=== PATIENT | female | born 1970 | race Two or more races ===

== ENCOUNTER 2024-05-01 11:10 | Emergency (ER) | payer MEDICAID, SELFPAY ==
[2024-05-01 11:21] VITALS: BP 185/116; PULSE 113; RESP 18; TEMP 37.2; O2SAT 98; BMI 27.8
--- NOTE | 2024-05-01 11:28 | EDNOTE_ITS ---
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 presents department for complaint of rash to her face patient reports no fever nausea vomiting Limitations: no limitations Related Data Previous Rx's ?Medication ?Instructions ?Recorded hydrocodone 5 mg-acetaminophen 325 1 tab PO BID PRN pain #10 tabs 12/03/23 mg tablet ibuprofen 600 mg tablet 600 mg PO Q6H #30 tabs 12/03/23 diphenhydramine HCl 25 mg capsule 25 mg PO Q8H PRN allergic symptoms 05/01/24 (Benadryl) #30 caps doxycycline hyclate 100 mg tablet 100 mg PO BID #14 tabs 05/01/24 prednisone 10 mg tablet 30 mg (3 x 10 mg) PO BID 3 days 05/01/24 #18 tabs Allergies Allergy/AdvReac Type Severity Reaction Status Date / Time walnut Allergy Verified 05/01/24 11:12 Review of Systems Review of Systems Systems Reviewed: All systems reviewed, normal except as documented Constitutional Constitutional: Reports system reviewed and no additional complaints, except as documented, Denies fever(s) and Denies headache(s) Eyes Eyes: Reports system reviewed and no additional complaints, except as documented and Denies blurry vision ENT Ears, Nose, Mouth, and Throat: Reports system reviewed and no additional complaints, except as documented, Denies headache(s), Denies nasal congestion and Denies nasal discharge Cardiovascular Cardiovascular: Reports system reviewed and no additional complaints, except as documented, Denies chest pain and Denies dyspnea Respiratory Respiratory: Reports system reviewed and no additional complaints, except as documented, Denies chest congestion, Denies cough and Denies dyspnea Gastrointestinal Gastrointestinal: Reports system reviewed and no additional complaints, except as documented and Denies abdominal pain Integumentary/Breasts Skin/Breast: Reports system reviewed and no additional complaints, except as documented, Reports pruritus and Reports rash (Skin rash) Neurologic Neurologic: Reports system reviewed and no additional complaints, except as documented, Reports as per HPI and Denies headache(s) Past Medical History Past Medical History NEUROLOGIC: Negative Neurological Disorders, Cerebrovascular Accident, Transient Ischemic Attacks (TIA), Dementia, Parkinson's Disease, Brain Tumor, Meningitis, Seizures, Epilepsy, Multiple Sclerosis, Cerebral Palsy, Amyotrophic Lateral Sclerosis (ALS/Rita Gehrig's), Guillain-[place] Syndrome, Spina Bifida, Paralysis, Peripheral Neuropathy, Okeefe's Palsy, Subdural Hematoma, Migraine, Head Trauma, Spinal Cord Injury or Traumatic Brain Injury CARDIAC: Negative Cardiac Disorders, Myocardial Infarction, Cardiac Arrhythmia, Atrial Fibrillation, Angina, Heart Murmur, Coronary Artery Disease, Atherosclerotic Heart Disease, Peripheral Vascular Disease, Hypercholesterolemia, Aneurysm, Congestive Heart Failure, Congenital Heart Disease, Valvular Heart Disease, Rheumatic Fever, Cardiomyopathy, Edema, Pericarditis, Cellulitis, Deep Vein Thrombosis, Hypertension, Hypotension or Varicose Veins RESPIRATORY: Negative Chronic Obstructive Pulmonary Disease (COPD), Asthma, B ronchitis, Emphysema, Pneumonia, Pulmonary Fibrosis, Cystic Fibrosis, Tuberculosis, Pulmonary Embolism, Pulmonary Edema or Sleep Apnea GASTROINTESTINAL: Negative Gastrointestinal Disorders, Hepatitis, Cirrhosis, Pancreatitis, Celiac Disease, Gall Bladder Disease, Gastrointestinal Bleed, Esophageal Varices, Maxwell's Esophagus, Colitis, Ulcerative Colitis, Diverticulitis, Diverticulosis, Ulcer, Colorectal Cancer, Irritable Bowel, Crohn's Disease, Obstructive Bowel, Hiatal Hernia, Hemorrhoids, Gastroesophageal Reflux Disease or Obesity GENITOURINARY: Negative Genitourinary Disorders, Renal Disease, Kidney Stones, Polycystic Kidney Disease, Neurogenic Bladder, Inguinal Hernia, Dialysis or Prostate Cancer REPRODUCTIVE: Positive Breast Cancer; Negative Endometriosis, Genital Herpes, Gonorrhea, Pelvic Inflammatory Disease, Previous Pregnancies, Syphilis, Testicular Cancer or Uterine Prolapse MUSCULOSKELETAL: Negative Musculoskeletal Disorders, Muscular Dystrophy, Myasthenia Gravis, Marfan's Syndrome, Bone Cancer, Arthritis, Rheumatoid Arthritis, Osteoporosis, Degenerative Disk Disease, Gout, Scoliosis, Carpal Tunnel Syndrome, Fibromyalgia, Fractures, Degenerative Joint Disease, Osteomye litis or Poliovirus ENT: Positive Blind; Negative Cataracts, Glaucoma, Retinal Detachment, Macular Degeneration, Ear Infection, Deafness, Head Trauma or Eye Prosthesis ENDOCRINE: Negative Endocrine Disorders, Diabetes Mellitus Type 1, Diabetes Mellitus Type 2, Hypoglycemia, Moisés's Syndrome, Tony's Disease, Hyperthyroidism, Hypothyroidism, Parathyroid Disease, Pituitary Disease, Systemic Lupus Erythematosus, Syndrome of Inappropriate Antidiuretic Hormone (SIADH), Adrenal Disease or Graves' Disease HEMATOLOGIC: Negative Sickle Cell Disease PSYCHO/SOCIAL: Negative Psychiatric Problems, Schizophrenia, Recreational Drug Use, Bipolar Disorder, Depression, Anxiety, Behavior Problems, Self-Mutilation, Attention Deficit Disorder, Attention Deficit Hyperactivity Disorder, Depression, Post Traumatic Stress Disorder or Eating Disorder OTHER HISTORY: Positive Chicken Pox, Cancer and Breast Cancer; Negative Hospitalization, Autoimmune Disease, Down Syndrome, Autism, Developmental Delay, Shingles, Falls, Blood Transfusions, Blood Transfusion Reaction, Anesthesia Reactions, Organ Transplant, Chemotherapy, Radiation Therapy, Hyperbaric Therapy, MRSA, VRSA, Vancomycin-Resistant Enterococci, Human Immunodeficiency Virus (HIV), Measles, Mumps, Rubella ([place] Measles), Pertussis, Clostridium Difficile, Cervical Cancer, Colorectal Cancer, Lung Cancer, Ovarian Cancer, Prostate Cancer or Testicular Cancer Family History FAMILY HISTORY: Positive Family Psychiatric Problems, Family Gastrointestinal Problems, Family Cancer and Family Surgery; Negative Family Respiratory Disorders, Family Cardiac Disorders or Family Anesthesia Reaction Surgical History SURGICAL: Positive Section; Negative Cardiac Surgery, Open Heart Surgery, Coronary Artery Bypass Graft, Valve Replacement, Vascular Surgery, Coronary Stent, Cardiac Catheterization, Pacemaker, Angiogram, Auto Implanted Cardiovert Defib, Carotid Endarterectomy, Endocrine Surgery, Thyroidectomy, Ear Surgery, Tympanostomy Tube, Eye Surgery, Nose Surgery, Oral Surgery, Tonsillectomy, Adenoidectomy, Cochlear Implant, Corneal Transplant, Throat Surgery, Abdominal Surgery, Tracheostomy, Gastric Bypass Surgery, Gastrostomy, Bowel Surgery, Joint Replacement, Amputation, Open Reduction Internal Fixation, Arthroscopy, Neurologic Surgery, Brain Shunt, Mastectomy, Lumpectomy, Hysterectomy or Organ Transplant Social History SMOKING STATUS: Never smoker SUBSTANCE USE: methamphetamine ED Exam General Limitations: Present no limitations General appearance: Present alert and in no apparent distress Head Head exam: Present atraumatic Eye Eye exam: Present normal appearance, PERRL and EOMI ENT ENT exam: Present normal exam, normal oropharynx and mucous membranes moist Neck Neck exam: Present normal inspection, full ROM and trachea midline Chest Chest inspection: Present normal inspection and symmetric chest wall rise Respiratory Respiratory exam: Present normal lung sounds bilaterally Cardiovascular Cardiovascular exam: Present regular rate, normal rhythm and normal heart sounds Abdominal Exam Abdominal exam: Present soft and normal bowel sounds Extremities Exam Extremities exam: Present normal inspection and full ROM Back Exam Back exam: Present normal inspection and full ROM Neurological Exam Neurological exam: Present alert, oriented X3, CN II-XII intact, normal gait and reflexes normal; Absent motor sensory deficit Psychiatric Psychiatric exam: Present normal affect and normal mood Skin Skin exam: Present warm, dry and rash Course Quality Measures none Vital Signs Vital signs: Vital Signs Temperature 98.9 F 12/12/24 11:21 Pulse Rate 113 H 05/01/24 11:21 Respiratory Rate 18 05/01/24 11:21 Blood Pressure 185/116 H 05/01/24 11:21 Pulse Oximetry (%) 98 05/01/24 11:21 Oxygen Delivery Method Room Air 05/01/24 11:21 O2 saturation 98% room air within normal notes Allergic Reaction MDM Narrative MDM Narrative:: 53-year-old female currently undergoing treatment for cancer and 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 presents department for complaint of rash to her face patient ports no fever nausea vomiting On exam patient has evidence of anaphylaxis Patient does have skin outbreak which is itchy Patient which with course of antibiotics, steroids and Benadryl Patient discharged home in no distress to follow-up with primary care doctor in the next 24 to 48 hours and for any worsening symptoms to return to the ER immediately Patient data External records reviewed:: [facility] previous records Clinical information provided by:: patient Social determinants that could affect healthcare access:: substance use Patient has the following chronic illnesses:: See history How is presenting disease/condition affected by chronic disease/condition?: uneffected by Evaluation data The following diagnostics were reviewed and interpreted by me:: other (specify) (N/A) Lab and/or radiology exams considered but not ordered:: N/A Interpretation Summary: N/A Medications / Prescriptions Medications or Prescriptions considered but not ordered:: Given Rx Medication administrations:: Given Rx Consultations Consultation(s) initiated? (list below): No Diagnosis Differential Diagnosis allergic reaction: anaphylaxis, allergic reaction and urticaria Most likely diagnosis given after review of the tests above:: Rash Admission Indicated Admission indicated?: not indicated Admission Request Was there a request for admission?: No Disposition Plan Disposition Plan: Discharge Discharge Attestation Discharge Attestation: The patient and all family members were given an opportunity to ask questions and understood the discharge instructions. Discharge instructions specifically effects, indications for sooner follow up or return to the emergency department, and the expected course of current diagnosis. Patient condition: Stable Discharge Plan Plan Patient Disposition: HOME (Self Care) Disposition Comment: Stable Prescriptions/Referrals Prescriptions/Med Rec: New prednisone 10 mg tablet 30 mg PO BID 3 Days Qty: 18 0RF diphenhydramine HCl [Benadryl] 25 mg capsule 25 mg PO Q8H PRN (Reason: allergic symptoms) Qty: 30 0RF doxycycline hyclate 100 mg tablet 100 mg PO BID Qty: 14 0RF No Action hydrocodone-acetaminophen 5-325 mg tablet 1 tab PO BID MDD 10 PRN (Reason: pain) Qty: 10 0RF ibuprofen 600 mg tablet 600 mg PO Q6H Qty: 30 0RF Problem List Clinical Impression: Rash Patient/Caregiver Discharge Instructions Additional Instructions: Please follow up with your primary care doctor in the next 24-48hrs for any worsening symptoms return here immediately Print Language: Tuvaluan Stand Alone Forms: Bree Award Info., Patient Portal Info Letter PA/STRUCTURAL SHOP HELPER Supervising Physician PA/STRUCTURAL SHOP HELPER Supervising Physician: dr chen
== END 2024-05-01 11:38 | disposition home or self-care (01) ==
PROVIDERS: Emergency Provider Emergency Medicine
DX: R21 Rash and other nonspecific skin eruption (principal); F15.10 Other stimulant abuse, uncomplicated
CPT/HCPCS: 99281

== ENCOUNTER → 2024-05-01 | Outpatient (CLI) | payer MEDICAID, SELFPAY ==
--- NOTE | 2024-05-01 14:00 | ECHO_ITS ---
Transthoracic Echo Report Ht (in): 64 Wt (lb): 162 Exam Location: Echo Lab Status: Preadmit Lead Sustainability Specialist: Fifi Duarte Indications: Procedure Performed: BP: / HR: Rhythm: Tachycardia Technical Quality: Fair MEASUREMENTS (Male / Female) Normal Values 2D ECHO LV Diastolic Diameter PLAX 4.0 cm 4.2 - 5.9 / 3.9 - 5.3 cm LV Systolic Diameter PLAX 2.5 cm IVS Diastolic Thickness 1.0 cm 0.6 - 1.0 / 0.6 - 0.9 cm LVPW Diastolic Thickness 1.0 cm 0.6 - 1.0 / 0.6 - 0.9 cm LV Relative Wall Thickness 0.5 LA Volume Index 15.6 cm?/m? 16 - 28 cm?/m? Ascending Aorta Diameter 3.0 cm M-MODE Aortic Root Diameter MM 2.6 cm LA Systolic Diameter MM 3.2 cm LA Ao Ratio MM 1.2 AV Cusp Separation MM 2.0 cm DOPPLER AV Peak Velocity 122.0 cm/s AV Peak Gradient 6.0 mmHg AV Mean Gradient 3.0 mmHg AV Velocity Time Integral 19.0 cm LVOT Peak Velocity 115.0 cm/s LVOT Peak Gradient 5.3 mmHg LVOT Velocity Time Integral 20.3 cm MV Peak Velocity 108.0 cm/s MV Peak Gradient 4.7 mmHg MV Mean Velocity 73.6 cm/s MV Mean Gradient 2.0 mmHg MV Area PHT 6.7 cm? Mitral E Point Velocity 71.0 cm/s Mitral A Point Velocity 111.0 cm/s Mitral E to A Ratio 0.6 LV E' Lateral Velocity 7.1 cm/s Mitral E to LV E' Lateral Ratio 10.0 LV E' Septal Velocity 10.0 cm/s Mitral E to LV E' Septal Ratio 7.1 FINDINGS Left Ventricle Normal left ventricular size, wall thickness, systolic function with no obvious regional wall motion abnormalities. The ejection fraction is visually estimated at 65-70%. Right Ventricle The right ventricle is normal in size and systolic function. Left Atrium The left atrium is normal by two-dimensional, color flow and Doppler imaging with no structural abnormalities, no thrombus formation present. Right Atrium The right atrium is normal by two-dimensional imaging, color flow and Doppler imaging with no struct ural abnormalities, no thrombus formation present. Atrial Septum The interatrial septum appears normal with no evidence of a shunt. Aorta The aorta is normal by two-dimensional, color flow and Doppler interrogation. Mitral Valve The mitral valve is normal by two-dimensional, color flow and Doppler interrogation. There is trace mitral valve regurgitation. Aortic Valve The aortic valve is trileaflet and normal by two-dimensional, color flow and Doppler interrogation. There is no significant aortic valve regurgitation. Tricuspid Valve The tricuspid valve is normal by two-dimensional, color flow and Doppler interrogation. There is tra ce tricuspid valve regurgitation. Pulmonic Valve The pulmonic valve is normal by two-dimensional, color flow and Doppler interrogation. There is no significant pulmonic valve regurgitation. Vessels The pulmonary artery appears normal. The inferior vena cava pulmonary and hepatic veins appear mariam l. Pericardium The pericardium is normal by two-dimensional imaging. There is no significant pericardial effusion. CONCLUSIONS Indication: Malignant neoplasm of female breast. Normal LV size and function. Estimated EF 65-70%. Cannot determine diastolic dysfunction. Normal RV size and function. Trace MR, TR. Pablo Fox (Electronically Signed) Final Date: 01 May 2024 18:11
== END | disposition home or self-care (01) ==
LOC: SDIM 13:57
PROVIDERS: Referring Provider Internal Medicine Hematology & Oncology; Visit Provider Internal Medicine Hematology & Oncology
DX: I08.1 Rheumatic disorders of both mitral and tricuspid valves (principal); C50.912 Malignant neoplasm of unspecified site of left female breast
CPT/HCPCS: 93306

== ENCOUNTER 2024-05-15 07:49 | Outpatient (RCR) | payer MEDICAID, SELFPAY ==
[2024-04-21 16:33] LABS: Basophils % (Auto) 0 % (0-2.5); Eosinophils % (Auto) 0 % (0-10); Hematocrit 43.5 % (36.0-46.0); Hemoglobin 15.2 g/dL (12.0-16.0); Immature Granulocytes % (Auto) 0 % (0-0); Immature Granulocytes Auto 0.06 Thou/mm3 (0.00-0.00); Lymphocytes # (Auto) 1.1 Thou/mm3 (1.0-4.8); Lymphocytes % (Auto) 7 % (10-50); Mean Corpuscular HGB Conc 34.9 g/dl (31.0-37.0); Mean Corpuscular Volume 92 fL (80-100); Monocytes # (Auto) 0.4 Thou/mm3 (0.0-0.8); Monocytes % (Auto) 3 % (0-12); Neutrophils # (Auto) 14.5 Thou/mm3 (1.8-7.7); Neutrophils % (Auto) 90 % (37-80); Nucleated Red Blood Cell % 0 /100 WBC (0); Platelet Count 280 Thou/mm3 (140-440); RDW Standard Deviation 45.7 fL (36.4-46.3); Red Blood Count 4.75 Miln/mm3 (4.00-5.20); White Blood Count 16.1 Thou/mm3 (3.6-11.0)
[2024-04-21 16:59] LABS: Alanine Aminotransferase 37 U/L (10-49); Albumin, Serum 4.8 gm/dL (3.5-5.0); Albumin/Globulin Ratio 1.7 (1.2-2.2); Alkaline Phosphatase 159 U/L (46-116); Anion Gap 11 (7-16); Aspartate Amino Transferase 26 U/L (0-34); BUN/Creatinine Ratio 21 Ratio (12-20); Bilirubin,Total 0.7 mg/dL (0.3-1.2); Blood Urea Nitrogen 15 mg/dL (9-23); Calcium 9.6 mg/dL (8.3-10.6); Calcium (Corrected) 9.6 mg/dL (8.5-10.1); Carbon Dioxide 23.7 mMol/L (20.0-31.0); Chloride 100 mMol/L (98-107); Creatinine (Component) 0.7 mg/dL (0.6-1.3); Globulin 2.9 gm/dL (2.3-3.5); Glucose 139 mg/dL (74-106); Osmolality,Calculated 272 (275-295); Potassium 3.7 mMol/L (3.4-5.1); Sodium 135 mMol/L (136-145); Total Protein 7.7 gm/dL (5.7-8.2); eGFR > 60 See Note
--- NOTE | 2024-05-04 20:30 | CTCFLWUP_ITS ---
Patient: TRICIA DAVE : 1970 Page 2 of 2 FOLLOW UP NOTE DATE OF SERVICE: 04/22/2024 NAME: TRICIA DAVE ACCOUNT: [id number] : 1970 AGE: 53 REASON FOR VISIT: Follow up on breast cancer INTERVAL HISTORY: Tricia Dave is a 53-year-old ENG speaking female with history of right eye blindness secon sarina to contact lens malfunction has the following oncology history. Ms. Dave never had screening m ammograms in the past. November 2022: The patient started noticing retraction of the left nipple. Few weeks later she felt a angelina mp in the left breast. 02/12/2023: Left breast ultrasound 03/28/2023: Bilateral diagnostic digital mammogram? 03/29/2023: Ms. Dave had left breast 10:00 nodule, 11:00 nodule as well as left axillary lymph node u ltrasound-guided biopsy. 05/15/2023: Echocardiogram showed an ejection fraction of 60 to 65%. 05/25/2023: PET/CT scan 05/31/2023: Bilateral breast MRI with and without contrast 07/17/2023: CT scan of the chest with IV contrast 07/27/2023: CT-guided biopsy of the left lobe liver lesion? 08/15/2023: Ms. Dave is started on pertuzumab, trastuzumab as well as docetaxel chemotherapy. 01/29/2024: PET/CT scan ONCOLOGY HISTORY: DIAGNOSIS: Stage IV moderately differentiated, left breast ER positive, AL negative, HER2/pennie 3+ IHC positive in vasive ductal carcinoma, s/p ultrasound-guided biopsy (03/29/2023) Status post biopsy-proven liver metastatic disease (07/27/2023) Currently on pertuzumab, trastuzumab and docetaxel started on 08/15/2023. PET/CT scan (01/29/2024) shows significant improvement History of methamphetamine usage Right eye blindness. 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 dexamethasone - 4 mg 1 tab Twice a Day Medications Last Reconciled by Desiree Prasad MA on 04/22/2024 ALLERGIES: No Known Drug Allergies REVIEW OF SYSTEMS: A complete 14-point review of systems was performed and is negative except as noted in interval histo ry. PHYSICAL EXAMINATION: VITAL SIGNS: Temperature?99.1, B/P?155/110, Oxygen?Saturation?96% Weight?160?lbs (Change?since? 4:?-3.4?lbs) PAIN: 0 - No pain ECOG Performance Status: 2 - Symptomatic; ambulatory; capable of self-care; >50% of waking hrs. not i n bed EYE: Conjunctivae is white MOUTH: Oral cavity moist . CHEST: Clear to auscultation. No wheezes or rales audible. CARDIAC: Rhythm regular, no murmurs or gallops present. ABDOMEN: Soft. No hepatomegaly. No splenomegaly. EXTREMITIES: No pedal edema or cyanosis. LABORATORY DATA: I have personally reviewed and interpreted each of the patient?s relevant lab tests, abnormal finding s are below: Date 04/21/24 ??WHITE?BLOOD?COUNT?(Thou/mm3) 16.1?H ??RED?BLOOD?COUNT?(Miln/mm3) 4.75 ??HEMOGLOBIN?(gm/dl) 15.2 ??HEMATOCRIT?(%) 43.5 ??PLATELET?COUNT?(Thou/mm3) 280 ??NEUTROPHILS?%,?AUTO?(%) 90?H ??LYMPH?%,?AUTO?(%) 7?L ??NEUTROPHILS,?AUTO?(Thou/mm3) 14.5?H IMPRESSION/PLAN: Stage IV left breast moderately differentiated ER positive AL negative HER2 3+ IHC positive invasive ductal carcinoma s/p ultrasound-guided biopsy on 03/29/2023. Left breast biopsy sample as well as left axillary biopsy sample showed invasive ductal carcinoma. Liver lesion biopsy for metastatic disease patient received chemotherapy patient is on trastuzumab pe rtuzumab and docetaxel 01/29/[address] scan showed significant improvement Patient can continue chemotherapy for now Will repeat imaging CBC CMP echocardiogram and PET CT scan RETURN TO CLINIC: 4 weeks BILLING AND COMPLIANCE: I reviewed external records from providers outside my specialty as summarized above. I spent a total of 50 minutes on this patient?s care on the day of their visit excluding time spent related to any bi lled procedures. This time includes time spent with the patient as well as time spent documenting in the medical record, reviewing patients records and tests, obtaining history, placing orders, communi cating with other healthcare professionals, counseling the patient, family or caregiver, and/or care coordination for the diagnoses above. Electronically Signed by: Kavon Leavitt MD T: 8:27 PM CC: Rosi,? PCP: Jelly Anderson Referring: Jelly Anderson This document was completed utilizing speech recognition software. Grammatical errors, random word in sertions, pronoun errors, and incomplete sentences are an occasional consequence of this system due t o software limitations, ambient noise, and hardware issues. Any formal questions or concerns about th e content, text or information contained within the body of this dictation should be directly address ed to the provider for clarification.
[2024-05-15 08:21] LABS: Basophils % (Auto) 0 % (0-2.5); Eosinophils % (Auto) 0 % (0-10); Hematocrit 43.4 % (36.0-46.0); Immature Granulocytes % (Auto) 0 % (0-0); Immature Granulocytes Auto 0.02 Thou/mm3 (0.00-0.00); Lymphocytes # (Auto) 1.6 Thou/mm3 (1.0-4.8); Lymphocytes % (Auto) 18 % (10-50); Mean Corpuscular HGB Conc 34.6 g/dl (31.0-37.0); Mean Corpuscular Hemoglobin 31.9 pg (25.0-35.0); Mean Corpuscular Volume 92 fL (80-100); Monocytes # (Auto) 0.7 Thou/mm3 (0.0-0.8); Monocytes % (Auto) 7 % (0-12); Neutrophils # (Auto) 6.7 Thou/mm3 (1.8-7.7); Neutrophils % (Auto) 74 % (37-80); Nucleated Red Blood Cell % 0 /100 WBC (0); Platelet Count 253 Thou/mm3 (140-440); RDW Standard Deviation 47.4 fL (36.4-46.3); White Blood Count 9.1 Thou/mm3 (3.6-11.0)
[2024-05-15 09:06] LABS: Alanine Aminotransferase 28 U/L (10-49); Albumin, Serum 4.3 gm/dL (3.5-5.0); Albumin/Globulin Ratio 1.9 (1.2-2.2); Alkaline Phosphatase 181 U/L (46-116); Anion Gap 6 (7-16); Aspartate Amino Transferase 16 U/L (0-34); BUN/Creatinine Ratio 15 Ratio (12-20); Bilirubin,Total 0.4 mg/dL (0.3-1.2); Blood Urea Nitrogen 9 mg/dL (9-23); Calcium 9.4 mg/dL (8.3-10.6); Calcium (Corrected) 9.4 mg/dL (8.5-10.1); Carbon Dioxide 26.6 mMol/L (20.0-31.0); Chloride 106 mMol/L (98-107); Creatinine (Component) 0.6 mg/dL (0.6-1.3); Globulin 2.3 gm/dL (2.3-3.5); Glucose 113 mg/dL (74-106); Osmolality,Calculated 277 (275-295); Potassium 3.6 mMol/L (3.4-5.1); Sodium 139 mMol/L (136-145); Total Protein 6.6 gm/dL (5.7-8.2); eGFR > 60 See Note
[2024-05-15 09:33] LABS: CA 15-3 16.3 U/mL (<32.4)
== END 2024-05-20 23:59 | disposition home or self-care (01) ==
LOC: SCTC 07:49
PROVIDERS: PCP Nurse Practitioner Primary Care; Referring Provider Nurse Practitioner Primary Care; Visit Provider Internal Medicine Hematology & Oncology
DX: Z51.11 Encounter for antineoplastic chemotherapy (principal); C50.212 Malignant neoplasm of upper-inner quadrant of left female breast; C77.3 Secondary and unspecified malignant neoplasm of axilla and upper limb lymph nodes; C78.7 Secondary malignant neoplasm of liver and intrahepatic bile duct; Z17.0 Estrogen receptor positive status [ER+]; Z17.22 Progesterone receptor negative status; Z17.31 Human epidermal growth factor receptor 2 positive status
CPT/HCPCS: 36591; 80053; 85025; 86300; 96367; 96413; 96417; 99212; A4216; J1100; J1453; J1642; J2405; J3490; J7040; J7050; J9171; J9306; Q5117; G0463

== ENCOUNTER 2024-06-12 07:46 | Outpatient (RCR) | payer MEDICAID, SELFPAY ==
[2024-06-12 08:52] LABS: Basophils % (Auto) 0 % (0-2.5); Eosinophils % (Auto) 0 % (0-10); Hematocrit 42.6 % (36.0-46.0); Hemoglobin 15.3 g/dL (12.0-16.0); Immature Granulocytes % (Auto) 1 % (0-0); Immature Granulocytes Auto 0.07 Thou/mm3 (0.00-0.00); Lymphocytes # (Auto) 1.2 Thou/mm3 (1.0-4.8); Lymphocytes % (Auto) 8 % (10-50); Mean Corpuscular HGB Conc 35.9 g/dl (31.0-37.0); Mean Corpuscular Hemoglobin 32.1 pg (25.0-35.0); Mean Corpuscular Volume 89 fL (80-100); Monocytes # (Auto) 0.6 Thou/mm3 (0.0-0.8); Monocytes % (Auto) 4 % (0-12); Neutrophils # (Auto) 12.6 Thou/mm3 (1.8-7.7); Neutrophils % (Auto) 87 % (37-80); Nucleated Red Blood Cell % 0 /100 WBC (0); Platelet Count 245 Thou/mm3 (140-440); RDW Standard Deviation 46.5 fL (36.4-46.3); Red Blood Count 4.77 Miln/mm3 (4.00-5.20); White Blood Count 14.4 Thou/mm3 (3.6-11.0)
[2024-06-12 09:18] LABS: Alanine Aminotransferase 34 U/L (10-49); Albumin, Serum 4.9 gm/dL (3.5-5.0); Albumin/Globulin Ratio 1.8 (1.2-2.2); Alkaline Phosphatase 169 U/L (46-116); Anion Gap 10 (7-16); Aspartate Amino Transferase 25 U/L (0-34); BUN/Creatinine Ratio 14 Ratio (12-20); Bilirubin,Total 0.7 mg/dL (0.3-1.2); Blood Urea Nitrogen 10 mg/dL (9-23); Calcium 9.9 mg/dL (8.3-10.6); Calcium (Corrected) 9.9 mg/dL (8.5-10.1); Chloride 103 mMol/L (98-107); Creatinine (Component) 0.7 mg/dL (0.6-1.3); Globulin 2.7 gm/dL (2.3-3.5); Glucose 135 mg/dL (74-106); Osmolality,Calculated 276 (275-295); Potassium 3.8 mMol/L (3.4-5.1); Sodium 138 mMol/L (136-145); Total Protein 7.6 gm/dL (5.7-8.2); eGFR > 60 See Note
== END 2024-06-20 23:59 | disposition home or self-care (01) ==
LOC: SCTC 07:46
PROVIDERS: PCP Nurse Practitioner Primary Care; Referring Provider Internal Medicine Hematology & Oncology; Visit Provider Internal Medicine Hematology & Oncology
DX: Z51.11 Encounter for antineoplastic chemotherapy (principal); C50.212 Malignant neoplasm of upper-inner quadrant of left female breast; C78.7 Secondary malignant neoplasm of liver and intrahepatic bile duct; Z17.0 Estrogen receptor positive status [ER+]; Z17.22 Progesterone receptor negative status; Z17.31 Human epidermal growth factor receptor 2 positive status
CPT/HCPCS: 80053; 85025; 96367; 96413; 96417; A4216; J1100; J1453; J1642; J2405; J3490; J7050; J9171; J9306; Q5117; A9270

== ENCOUNTER 2024-06-12 13:51 | Emergency (ER) | payer MEDICAID, SELFPAY ==
[2024-06-12 14:16] VITALS: BP 190/114; PULSE 125; RESP 18; TEMP 36.6; O2SAT 97; BMI 25.7
--- NOTE | 2024-06-12 14:55 | PC.NURSE ---
pt walked out of ed at this time
== END 2024-06-12 14:55 | disposition left against medical advice (07) ==
PROVIDERS: Emergency Provider Emergency Medicine
DX: Z53.21 Procedure and treatment not carried out due to patient leaving prior to being seen by health care provider (principal)
CPT/HCPCS: 99281

== ENCOUNTER → 2024-08-05 | Outpatient (CLI) | payer MEDICAID, SELFPAY ==
--- NOTE | 2024-08-05 13:30 | ECHO_ITS ---
Transthoracic Echo Report Ht (in): 64 Wt (lb): 160 Exam Location: Echo Lab Status: Preadmit Wireless Development Manager: BALDEV Morales^^^^ Indications: Procedure Performed: BP: 132 / 78 HR: 107 Technical Quality: Technically difficult study MEASUREMENTS (Male / Female) Normal Values 2D ECHO LV Diastolic Diameter PLAX 3.4 cm 4.2 - 5.9 / 3.9 - 5.3 cm LV Systolic Diameter PLAX 2.2 cm IVS Diastolic Thickness 0.9 cm 0.6 - 1.0 / 0.6 - 0.9 cm LVPW Diastolic Thickness 0.9 cm 0.6 - 1.0 / 0.6 - 0.9 cm LV Relative Wall Thickness 0.5 LVOT Diameter 1.8 cm Aortic Root Diameter 2.9 cm LA Systolic Diameter LX 3.0 cm 3.0 - 4.0 / 2.7 - 3.8 cm DOPPLER AV Peak Velocity 125.0 cm/s AV Peak Gradient 6.3 mmHg AV Mean Gradient 4.0 mmHg AV Velocity Time Integral 34.8 cm LVOT Peak Velocity 100.0 cm/s LVOT Peak Gradient 4.0 mmHg LVOT Velocity Time Integral 25.7 cm LVOT Cardiac Index 3826.5 cm?/min?m? AV Area Cont Eq vti 1.9 cm? AV Area Cont Eq pk 2.0 cm? MV Area PHT 5.6 cm? Mitral E Point Velocity 102.0 cm/s Mitral A Point Velocity 58.3 cm/s Mitral E to A Ratio 1.7 LV E' Lateral Velocity 14.5 cm/s Mitral E to LV E' Lateral Ratio 7.0 LV E' Septal Velocity 28.0 cm/s Mitral E to LV E' Septal Ratio 3.6 PV Peak Velocity 88.9 cm/s PV Peak Gradient 3.2 mmHg RVOT Peak Velocity 93.1 cm/s FINDINGS Left Ventricle Normal left ventricular size, wall thickness, systolic function with no obvious regional wall motion abnormalities. There is grade II diastolic dysfunction of the left ventricle (pseudonormal filling pattern). The left ventricular ejection fraction is normal, estimated at 60-65%. Right Ventricle The right ventricle is normal in size and systolic function. The estimated right ventricular systolic pressure, 20 mmHg. Left Atrium The left atrium is normal by two-dimensional, color flow and Doppler imaging with no structural abnormalities, no thrombus formation present. Right Atrium The right atrium is normal by two-dimensional imaging, color flow and Doppler imaging with no structural abnormalities, no thrombus formation present. Atrial Septum The interatrial septum appears normal with no evidence of a shunt. Aorta The aorta is normal by two-dimensional, color flow and Doppler interrogation. Mitral Valve Mild mitral regurgitation. Mild mitral annular calcification. Aortic Valve The aortic valve is trileaflet and normal by two-dimensional, color flow and Doppler interrogation. There is no significant aortic valve regurgitation. Tricuspid Valve There is trace tricuspid valve regurgitation. Pulmonic Valve The pulmonic valve is not well visualized. There is no significant pulmonic valve regurgitation. Vessels The pulmonary artery appears normal. The inferior vena cava pulmonary and hepatic veins appear normal. Pericardium The pericardium is normal by two-dimensional imaging. There is no significant pericardial effusion. CONCLUSIONS Indication: Malignant neoplasm Normal LV size and function with an estimated EF of 60 to 65%. Normal diastolic function Normal RV size and function with normal RVSP. Trace TR and mild MR noted. Pablo Fox (Electronically Signed) Final Date: 06 August 2024 18:50
== END | disposition home or self-care (01) ==
LOC: SDIM 12:39
PROVIDERS: Referring Provider Internal Medicine Hematology & Oncology; Visit Provider Internal Medicine Hematology & Oncology
DX: I08.1 Rheumatic disorders of both mitral and tricuspid valves (principal); C50.112 Malignant neoplasm of central portion of left female breast
CPT/HCPCS: 93306

== ENCOUNTER 2024-08-14 07:54 | Outpatient (RCR) | payer MEDICAID, SELFPAY ==
[2024-07-23 09:01] LABS: Basophils % (Auto) 0 % (0-2.5); Eosinophils % (Auto) 0 % (0-10); Hematocrit 42.2 % (36.0-46.0); Hemoglobin 14.7 g/dL (12.0-16.0); Immature Granulocytes % (Auto) 0 % (0-0); Immature Granulocytes Auto 0.05 Thou/mm3 (0.00-0.00); Lymphocytes % (Auto) 7 % (10-50); Mean Corpuscular HGB Conc 34.8 g/dl (31.0-37.0); Mean Corpuscular Hemoglobin 32.3 pg (25.0-35.0); Mean Corpuscular Volume 93 fL (80-100); Monocytes # (Auto) 0.1 Thou/mm3 (0.0-0.8); Monocytes % (Auto) 1 % (0-12); Neutrophils # (Auto) 13.3 Thou/mm3 (1.8-7.7); Neutrophils % (Auto) 92 % (37-80); Nucleated Red Blood Cell % 0 /100 WBC (0); Platelet Count 270 Thou/mm3 (140-440); RDW Standard Deviation 51.9 fL (36.4-46.3); Red Blood Count 4.55 Miln/mm3 (4.00-5.20); White Blood Count 14.5 Thou/mm3 (3.6-11.0)
[2024-07-23 09:18] LABS: Alanine Aminotransferase 88 U/L (10-49); Albumin, Serum 4.3 gm/dL (3.5-5.0); Albumin/Globulin Ratio 1.7 (1.2-2.2); Alkaline Phosphatase 171 U/L (46-116); Anion Gap 9 (7-16); Aspartate Amino Transferase 34 U/L (0-34); BUN/Creatinine Ratio 23 Ratio (12-20); Bilirubin,Total 0.5 mg/dL (0.3-1.2); Blood Urea Nitrogen 14 mg/dL (9-23); Calcium 9.4 mg/dL (8.3-10.6); Calcium (Corrected) 9.4 mg/dL (8.5-10.1); Carbon Dioxide 26.4 mMol/L (20.0-31.0); Chloride 105 mMol/L (98-107); Creatinine (Component) 0.6 mg/dL (0.6-1.3); Globulin 2.6 gm/dL (2.3-3.5); Glucose 199 mg/dL (74-106); Osmolality,Calculated 285 (275-295); Potassium 3.9 mMol/L (3.4-5.1); Sodium 140 mMol/L (136-145); Total Protein 6.9 gm/dL (5.7-8.2); eGFR > 60 See Note
[2024-07-23 09:43] LABS: CA 15-3 12.9 U/mL (<32.4)
--- NOTE | 2024-08-12 01:45 | CTCFLWUP_ITS ---
Patient: TRICIA DAVE : 1970 Page 5 of 7 FOLLOW UP NOTE DATE OF SERVICE: 08/11/2024 NAME: TRICIA DAVE ACCOUNT: [id number] : 1970 AGE: 54 INTERVAL HISTORY: Patient is doing well. Mass have decreased in her breast . she is on chemo and tagrgetted theraoy for her stage 4 cancer . ONCOLOGY HISTORY:?[facility] Hx? DIAGNOSIS: Stage IV moderately differentiated, left breast ER positive, GA negative, HER2/pennie 3+ IHC positive invasive ductal carcinoma, s/p ultrasound-guided biopsy (03/29/2023) Status post biopsy-proven liver metastatic disease (07/27/2023) Currently on pertuzumab, trastuzumab and docetaxel started on 08/15/2023. PET/CT scan (01/29/2024) shows significant improvement History of methamphetamine usage Right eye blindness. 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 Ms. Dave never had screening mammograms in the past. November 2022: The patient started noticing retraction of the left nipple. Few weeks later she felt a lump in the left breast. 02/12/2023: Left breast ultrasound 03/28/2023: Bilateral diagnostic digital mammogram? 03/29/2023: Ms. Dave had left breast 10:00 nodule, 11:00 nodule as well as left axillary lymph node ultrasound-guided biopsy. 05/15/2023: Echocardiogram showed an ejection fraction of 60 to 65%. 05/25/2023: PET/CT scan 05/31/2023: Bilateral breast MRI with and without contrast 07/17/2023: CT scan of the chest with IV contrast 07/27/2023: CT-guided biopsy of the left lobe liver lesion? 08/15/2023: Ms. Dave is started on pertuzumab, trastuzumab as well as docetaxel chemotherapy. 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 dexamethasone - 4 mg 4 mg Daily 2. losartan - 50 mg 1 tab Daily?Palabra Meds? Medications Last Reconciled by Desiree Prasad MA on 08/11/2024 ALLERGIES: No Known Drug Allergies REVIEW OF SYSTEMS: A complete 14-point review of systems was performed and is negative except as noted in interval history. PHYSICAL EXAMINATION:?[facility] PE? VITAL SIGNS: Temperature?98.1, B/P?162/98, Oxygen?Saturation?99% Weight?159?lbs (Change?since?07/24/24:?-3.6?lbs) PAIN: 0 - No pain EYE: Conjunctivae is white MOUTH: Oral cavity moist . CHEST: Clear to auscultation. No wheezes or rales audible. CARDIAC: Rhythm regular, no murmurs or gallops present. ABDOMEN: Soft. No hepatomegaly. No splenomegaly. EXTREMITIES: No pedal edema or cyanosis. Breast with no masses now LABORATORY DATA: I have personally reviewed and interpreted each of the patient?s relevant lab tests, abnormal findings are below: Date 06/12/24 07/23/24 ??WHITE?BLOOD?COUNT?(Thou/mm3) 14.4?H 14.5?H ??RED?BLOOD?COUNT?(Miln/mm3) 4.77 4.55 ??HEMOGLOBIN?(gm/dl) 15.3 14.7 ??HEMATOCRIT?(%) 42.6 42.2 ??PLATELET?COUNT?(Thou/mm3) 245 270 ??NEUTROPHILS?%,?AUTO?(%) 87?H 92?H ??LYMPH?%,?AUTO?(%) 8?L 7?L ??NEUTROPHILS,?AUTO?(Thou/mm3) 12.6?H 13.3?H ??GLUCOSE,RANDOM?(mg/dL) 135?H 199?H ??BLOOD?UREA?NITROGEN?(mg/dL) 10 14 ??CREATININE?(mg/dL) 0.70 0.60 ??SODIUM?(mmol/L) 138 140 ??POTASSIUM?(mmol/L) 3.8 3.9 ??CHLORIDE?(mmol/L) 103 105 ??CrCl?(CandG)?(ml/min) 90.50 104.76 ??AST/SGOT?(Unit/L) 25 34 ??ALT/SGPT?(Unit/L) 34 88?H ??ALKALINE?PHOSPHATASE?(Unit/L) 169?H 171?H ??BILIRUBIN,?TOTAL?(mg/dL) 0.7 0.5 ??PROTEIN?TOTAL?(gm/dl) 7.6 6.9 ??ALBUMIN,?SERUM?(gm/dl) 4.9 4.3 ??GLOBULIN?(gm/dl) 2.7 2.6 ??ALBUMIN/GLOBULIN?RATIO 1.8 1.7 ??CALCIUM,?SERUM?(mg/dL) 9.9 9.4 ??CALCIUM?SERUM?(CORRECTED)?(mg/dL) 9.9 9.4 ASSESSMENT/PLAN:?Babatunde Leavitt Assessment/Plan? Stage IV left breast moderately differentiated ER positive GA negative HER2 3+ IHC positive invasive ductal carcinoma s/p ultrasound-guided biopsy on 03/29/2023. Left breast biopsy sample as well as left axillary biopsy sample showed invasive ductal carcinoma. Liver lesion biopsy for metastatic disease patient received chemotherapy patient is on trastuzumab pertuzumab and docetaxel 01/29/[address] scan showed significant improvement Patient can continue chemotherapy for now Will repeat imaging CBC CMP echocardiogram and PET CT scan Patient doing well. ORDERS: Order # Description [id number] PET/CT of Skull to mid-thigh for Restaging [id number] CA 15-3 + CEA [id number] Comprehensive Metabolic Panel - 12 + CBC with Auto Diff RETURN TO CLINIC: 2 months BILLING AND COMPLIANCE: I reviewed external records from providers outside my specialty as summarized above. I spent a total of 50 minutes on this patient?s care on the day of their visit excluding time spent related to any billed procedures. This time includes time spent with the patient as well as time spent documenting in the medical record, reviewing patients records and tests, obtaining history, placing orders, communicating with other healthcare professionals, counseling the patient, family or caregiver, and/or care coordination for the diagnoses above. Electronically Signed by: Kavon Leavitt MD T: 1:42 AM CC: ALVARO Aranda PCP: Kavon Leavitt Referring: Kavon Leavitt This document was completed utilizing speech recognition software. Grammatical errors, random word insertions, pronoun errors, and incomplete sentences are an occasional consequence of this system due to software limitations, ambient noise, and hardware issues. Any formal questions or concerns about the content, text or information contained within the body of this dictation should be directly addressed to the provider for clarification.
[2024-08-13 09:47] LABS: Basophils # (Auto) 0.1 Thou/mm3 (0.0-0.2); Basophils % (Auto) 0 % (0-2.5); Eosinophils % (Auto) 0 % (0-10); Hematocrit 39.7 % (36.0-46.0); Hemoglobin 13.8 g/dL (12.0-16.0); Immature Granulocytes % (Auto) 1 % (0-0); Immature Granulocytes Auto 0.13 Thou/mm3 (0.00-0.00); Lymphocytes # (Auto) 2.6 Thou/mm3 (1.0-4.8); Lymphocytes % (Auto) 15 % (10-50); Mean Corpuscular HGB Conc 34.8 g/dl (31.0-37.0); Mean Corpuscular Hemoglobin 31.9 pg (25.0-35.0); Mean Corpuscular Volume 92 fL (80-100); Monocytes % (Auto) 6 % (0-12); Neutrophils # (Auto) 14.3 Thou/mm3 (1.8-7.7); Neutrophils % (Auto) 79 % (37-80); Nucleated Red Blood Cell % 0 /100 WBC (0); Platelet Count 305 Thou/mm3 (140-440); RDW Standard Deviation 49.4 fL (36.4-46.3); Red Blood Count 4.32 Miln/mm3 (4.00-5.20); White Blood Count 18.1 Thou/mm3 (3.6-11.0)
[2024-08-13 10:00] LABS: Alanine Aminotransferase 26 U/L (10-49); Albumin/Globulin Ratio 1.7 (1.2-2.2); Alkaline Phosphatase 169 U/L (46-116); Anion Gap 9 (7-16); Aspartate Amino Transferase 16 U/L (0-34); BUN/Creatinine Ratio 20 Ratio (12-20); Bilirubin,Total 0.4 mg/dL (0.3-1.2); Blood Urea Nitrogen 12 mg/dL (9-23); Carbon Dioxide 25.3 mMol/L (20.0-31.0); Chloride 105 mMol/L (98-107); Creatinine (Component) 0.6 mg/dL (0.6-1.3); Globulin 2.4 gm/dL (2.3-3.5); Glucose 105 mg/dL (74-106); Osmolality,Calculated 277 (275-295); Potassium 3.7 mMol/L (3.4-5.1); Sodium 139 mMol/L (136-145); Total Protein 6.4 gm/dL (5.7-8.2); eGFR > 60 See Note
[2024-08-13 12:21] LABS: CA 15-3 20.2 U/mL (<32.4)
== END 2024-08-18 23:59 | disposition home or self-care (01) ==
LOC: SCTC 07:54
PROVIDERS: PCP Internal Medicine; Referring Provider Internal Medicine Hematology & Oncology; Visit Provider Internal Medicine Hematology & Oncology
DX: Z51.11 Encounter for antineoplastic chemotherapy (principal); C50.212 Malignant neoplasm of upper-inner quadrant of left female breast; C77.3 Secondary and unspecified malignant neoplasm of axilla and upper limb lymph nodes; C78.7 Secondary malignant neoplasm of liver and intrahepatic bile duct; Z17.0 Estrogen receptor positive status [ER+]; Z17.22 Progesterone receptor negative status; Z17.31 Human epidermal growth factor receptor 2 positive status
CPT/HCPCS: 36591; 80053; 85025; 86300; 96367; 96413; 96417; 99212; 99424; 99425; A4216; J1100; J1453; J1642; J2405; J3490; J7040; J7050; J9171; J9306; Q5117; G0463

== ENCOUNTER 2024-09-17 15:08 | Outpatient (RCR) | payer MEDICAID, SELFPAY ==
[2024-09-17 16:14] LABS: Basophils # (Auto) 0.1 Thou/mm3 (0.0-0.2); Basophils % (Auto) 1 % (0-2.5); Eosinophils # (Auto) 0.1 Thou/mm3 (0.0-0.5); Eosinophils % (Auto) 1 % (0-10); Hematocrit 37.1 % (36.0-46.0); Hemoglobin 12.9 g/dL (12.0-16.0); Immature Granulocytes % (Auto) 0 % (0-0); Immature Granulocytes Auto 0.03 Thou/mm3 (0.00-0.00); Lymphocytes % (Auto) 21 % (10-50); Mean Corpuscular HGB Conc 34.8 g/dl (31.0-37.0); Mean Corpuscular Hemoglobin 31.6 pg (25.0-35.0); Mean Corpuscular Volume 91 fL (80-100); Monocytes % (Auto) 10 % (0-12); Neutrophils # (Auto) 6.6 Thou/mm3 (1.8-7.7); Neutrophils % (Auto) 68 % (37-80); Nucleated Red Blood Cell % 0 /100 WBC (0); Platelet Count 238 Thou/mm3 (140-440); RDW Standard Deviation 49.7 fL (36.4-46.3); Red Blood Count 4.08 Miln/mm3 (4.00-5.20); White Blood Count 9.7 Thou/mm3 (3.6-11.0)
[2024-09-17 16:43] LABS: Alanine Aminotransferase 19 U/L (10-49); Albumin, Serum 4.2 gm/dL (3.5-5.0); Albumin/Globulin Ratio 1.6 (1.2-2.2); Alkaline Phosphatase 158 U/L (46-116); Anion Gap 10 (7-16); Aspartate Amino Transferase 22 U/L (0-34); BUN/Creatinine Ratio 30 Ratio (12-20); Bilirubin,Total 1.2 mg/dL (0.3-1.2); Blood Urea Nitrogen 18 mg/dL (9-23); Calcium 9.3 mg/dL (8.3-10.6); Calcium (Corrected) 9.3 mg/dL (8.5-10.1); Carbon Dioxide 24.4 mMol/L (20.0-31.0); Chloride 107 mMol/L (98-107); Creatinine (Component) 0.6 mg/dL (0.6-1.3); Globulin 2.6 gm/dL (2.3-3.5); Glucose 103 mg/dL (74-106); Osmolality,Calculated 283 (275-295); Potassium 3.5 mMol/L (3.4-5.1); Sodium 141 mMol/L (136-145); Total Protein 6.8 gm/dL (5.7-8.2); eGFR > 60 See Note
== END 2024-09-17 23:59 | disposition home or self-care (01) ==
LOC: SCTC 15:08
PROVIDERS: PCP Internal Medicine; Referring Provider Family Medicine; Visit Provider Internal Medicine Hematology & Oncology
DX: C50.412 Malignant neoplasm of upper-outer quadrant of left female breast (principal); C77.3 Secondary and unspecified malignant neoplasm of axilla and upper limb lymph nodes; C78.7 Secondary malignant neoplasm of liver and intrahepatic bile duct; Z17.0 Estrogen receptor positive status [ER+]; Z17.22 Progesterone receptor negative status; Z17.31 Human epidermal growth factor receptor 2 positive status
CPT/HCPCS: 36591; 80053; 85025; A4216; J1642; J2405; J7050; J9306; Q5117

== ENCOUNTER 2024-09-18 08:20 | Outpatient (RCR) | payer MEDICAID, SELFPAY | END 2024-10-18 23:59 | disposition home or self-care (01) | LOC: SCTC 08:20 | PROVIDERS: PCP Family Medicine; Referring Provider Family Medicine; Visit Provider Internal Medicine Hematology & Oncology | DX: Z51.11 Encounter for antineoplastic chemotherapy (principal); C50.212 Malignant neoplasm of upper-inner quadrant of left female breast; C77.3 Secondary and unspecified malignant neoplasm of axilla and upper limb lymph nodes; C78.7 Secondary malignant neoplasm of liver and intrahepatic bile duct; Z17.0 Estrogen receptor positive status [ER+]; Z17.22 Progesterone receptor negative status; Z17.32 Human epidermal growth factor receptor 2 negative status | CPT/HCPCS: 96367; 96413; 96417; A4216; J1642; J2405; J7050; J9306; Q5117 ==

== ENCOUNTER 2024-11-11 08:38 | Outpatient (RCR) | payer MEDICAID, SELFPAY ==
[2024-10-20 16:30] LABS: Basophils # (Auto) 0.1 Thou/mm3 (0.0-0.2); Basophils % (Auto) 1 % (0-2.5); Eosinophils # (Auto) 0.2 Thou/mm3 (0.0-0.5); Eosinophils % (Auto) 3 % (0-10); Hematocrit 40.7 % (36.0-46.0); Hemoglobin 14.3 g/dL (12.0-16.0); Immature Granulocytes % (Auto) 0 % (0-0); Immature Granulocytes Auto 0.01 Thou/mm3 (0.00-0.00); Lymphocytes # (Auto) 1.6 Thou/mm3 (1.0-4.8); Lymphocytes % (Auto) 25 % (10-50); Mean Corpuscular HGB Conc 35.1 g/dl (31.0-37.0); Mean Corpuscular Hemoglobin 32.6 pg (25.0-35.0); Mean Corpuscular Volume 93 fL (80-100); Monocytes # (Auto) 0.5 Thou/mm3 (0.0-0.8); Monocytes % (Auto) 7 % (0-12); Neutrophils # (Auto) 4.3 Thou/mm3 (1.8-7.7); Neutrophils % (Auto) 65 % (37-80); Nucleated Red Blood Cell % 0 /100 WBC (0); Platelet Count 258 Thou/mm3 (140-440); RDW Standard Deviation 49.8 fL (36.4-46.3); Red Blood Count 4.38 Miln/mm3 (4.00-5.20); White Blood Count 6.6 Thou/mm3 (3.6-11.0)
[2024-10-20 16:50] LABS: Alanine Aminotransferase 15 U/L (10-49); Albumin/Globulin Ratio 1.7 (1.2-2.2); Alkaline Phosphatase 141 U/L (46-116); Anion Gap 9 (7-16); Aspartate Amino Transferase 17 U/L (0-34); BUN/Creatinine Ratio 14 Ratio (12-20); Bilirubin,Total 0.5 mg/dL (0.3-1.2); Blood Urea Nitrogen 7 mg/dL (9-23); Calcium 8.7 mg/dL (8.3-10.6); Calcium (Corrected) 8.7 mg/dL (8.5-10.1); Carbon Dioxide 27.8 mMol/L (20.0-31.0); Chloride 105 mMol/L (98-107); Creatinine (Component) 0.5 mg/dL (0.6-1.3); Globulin 2.3 gm/dL (2.3-3.5); Glucose 107 mg/dL (74-106); Osmolality,Calculated 281 (275-295); Potassium 3.8 mMol/L (3.4-5.1); Sodium 142 mMol/L (136-145); Total Protein 6.3 gm/dL (5.7-8.2); eGFR > 60 See Note
[2024-11-07 11:10] LABS: Basophils % (Auto) 0 % (0-2.5); Eosinophils # (Auto) 0.1 Thou/mm3 (0.0-0.5); Eosinophils % (Auto) 1 % (0-10); Hematocrit 39.8 % (36.0-46.0); Hemoglobin 13.5 g/dL (12.0-16.0); Immature Granulocytes % (Auto) 0 % (0-0); Immature Granulocytes Auto 0.02 Thou/mm3 (0.00-0.00); Lymphocytes # (Auto) 1.7 Thou/mm3 (1.0-4.8); Lymphocytes % (Auto) 19 % (10-50); Mean Corpuscular HGB Conc 33.9 g/dl (31.0-37.0); Mean Corpuscular Volume 94 fL (80-100); Monocytes # (Auto) 0.7 Thou/mm3 (0.0-0.8); Monocytes % (Auto) 8 % (0-12); Neutrophils # (Auto) 6.4 Thou/mm3 (1.8-7.7); Neutrophils % (Auto) 71 % (37-80); Nucleated Red Blood Cell % 0 /100 WBC (0); Platelet Count 242 Thou/mm3 (140-440); RDW Standard Deviation 49.1 fL (36.4-46.3); Red Blood Count 4.22 Miln/mm3 (4.00-5.20)
[2024-11-07 11:55] LABS: Alanine Aminotransferase 22 U/L (10-49); Albumin, Serum 3.9 gm/dL (3.5-5.0); Albumin/Globulin Ratio 1.6 (1.2-2.2); Alkaline Phosphatase 161 U/L (46-116); Anion Gap 7 (7-16); Aspartate Amino Transferase 20 U/L (0-34); BUN/Creatinine Ratio 15 Ratio (12-20); Bilirubin,Total 0.7 mg/dL (0.3-1.2); Blood Urea Nitrogen 9 mg/dL (9-23); Calcium 9.1 mg/dL (8.3-10.6); Calcium (Corrected) 9.2 mg/dL (8.5-10.1); Carbon Dioxide 26.1 mMol/L (20.0-31.0); Chloride 106 mMol/L (98-107); Creatinine (Component) 0.6 mg/dL (0.6-1.3); Globulin 2.4 gm/dL (2.3-3.5); Glucose 103 mg/dL (74-106); Osmolality,Calculated 276 (275-295); Potassium 3.9 mMol/L (3.4-5.1); Sodium 139 mMol/L (136-145); Total Protein 6.3 gm/dL (5.7-8.2); eGFR > 60 See Note
[2024-11-07 12:00] LABS: CA 15-3 7.6 U/mL (<32.4)
--- NOTE | 2024-11-12 23:23 | CTCFLWUP_ITS ---
Patient: TRICIA CHEATHAM : 1970 Page 6 of 8 FOLLOW UP NOTE DATE OF SERVICE: 11/10/2024 NAME: TRICIA CHEATHAM ACCOUNT: [id number] : 1970 AGE: 54 INTERVAL HISTORY: Jolie, a female with stage 4 breast cancer, presented for follow-up. Her history includes primary cancer in the left breast. She reported doing well on her current treatment regimen with no significant side effects. Recent PET-CT scan showed negative results with cancer almost gone from the breast and resolution of a previously noted liver spot. The plan includes continuing current treatment, repeating PET-CT in 2 months, and considering bilateral mastectomy with implant reconstruction if full remission is achieved. Subjective: Chief Complaint Follow-up for breast cancer treatment, discussion about potential bilateral mastectomy History of Present Illness Jolie is a female patient with stage 4 breast cancer presenting for follow-up. She reports doing well with her current treatment regimen, stating I'm doing good when asked about side effects. The patient's left breast was the primary site of her cancer. She denies any pain in the breast area, only reporting that it tickles when examined. Jolie expresses a desire to undergo bilateral mastectomy with implant reconstruction to prevent cancer recurrence, stating I'm okay with that. I've been talking to my family... I don't want it to come back. She acknowledges the seriousness of her condition, understanding it as stage 4 cancer. Jolie appears to be adhering to her prescribed treatment plan and is showing positive progress. She reports no major side effects from her current treatment. Objective: Physical Examination Breast: Left breast examined. No pain or tenderness noted on palpation. Area where cancer was previously located is described as very clear. Laboratory, Imaging, and Diagnostic Test Results - PET-CT scan: Negative ONCOLOGY HISTORY: DIAGNOSIS: Stage IV moderately differentiated, left breast ER positive, CA negative, HER2/pennie 3+ IHC positive invasive ductal carcinoma, s/p ultrasound-guided biopsy (03/29/2023) Status post biopsy-proven liver metastatic disease (07/27/2023) Currently on pertuzumab, trastuzumab and docetaxel started on 08/15/2023. PET/CT scan (01/29/2024) shows significant improvement History of methamphetamine usage Right eye blindness. DATE OF DIAGNOSIS: 03/29/2023 STAGE/TNM: Stage 4 TREATMENT HISTORY: Care?Plan Start?Date Cycle Day Intent DOCETAXEL,?HERCEPTIN,?PERJETA,?CARBO 05/23/2023 1 21 Induction-Primary Pertuzumab,?Trastuzumab?and?Docetaxel 08/14/2023 1 21 Palliative?(other) Pertuzumab,?Trastuzumab?and?Docetaxel?continuation 01/30/2024 1 21 Palliative Herceptin?6mg/kg;?Perjeta?300?mg 08/28/2024 1 21 Curative?(primary) herceptin?perjeta?adjuvant?for?11?cycles?after?tchp 09/04/2024 1 21 Palliative Herceptin?6mg/kg;?Perjeta?300?mg 08/25/2027 1 21 Maintenance HISTORY OF PRESENT ILLNESS: Tricia Cheatham is a 54-year-old ENG speaking female with 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 Ms. Cheatham never had screening mammograms in the past. November 2022: The patient started noticing retraction of the left nipple. Few weeks later she felt a lump in the left breast. 02/12/2023: Left breast ultrasound 03/28/2023: Bilateral diagnostic digital mammogram? 03/29/2023: Ms. Cheatham had left breast 10:00 nodule, 11:00 nodule as well as left axillary lymph node ultrasound-guided biopsy. 05/15/2023: Echocardiogram showed an ejection fraction of 60 to 65%. 05/25/2023: PET/CT scan 05/31/2023: Bilateral breast MRI with and without contrast 07/17/2023: CT scan of the chest with IV contrast 07/27/2023: CT-guided biopsy of the left lobe liver lesion? 08/15/2023: Ms. Cheatham is started on pertuzumab, trastuzumab as well as docetaxel chemotherapy. 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 Arimidex - 1 mg 1 tab Daily 2. dexamethasone - 4 mg 4 mg Daily 3. losartan - 50 mg 1 tab Daily Medications Last Reconciled by Desiree Prasad MA on 11/10/2024 ALLERGIES: No Known Drug Allergies REVIEW OF SYSTEMS: A complete 14-point review of systems was performed and is negative except as noted in interval history. PHYSICAL EXAMINATION: VITAL SIGNS: Temperature?98.8, B/P?165/79, Oxygen?Saturation?98% Weight?157?lbs (Change?since?11/07/24:?0.4?lbs) PAIN: 0 - No pain ECOG Performance Status: 0 - Asymptomatic and fully active EYE: Conjunctivae is white MOUTH: Oral cavity moist . CHEST: Clear to auscultation. No wheezes or rales audible. CARDIAC: Rhythm regular, no murmurs or gallops present. ABDOMEN: Soft. No hepatomegaly. No splenomegaly. EXTREMITIES: No pedal edema or cyanosis. Breast with no masses now LABORATORY DATA: I have personally reviewed and interpreted each of the patient?s relevant lab tests, abnormal findings are below: Date 10/20/24 11/07/24 ??WHITE?BLOOD?COUNT?(Thou/mm3) 6.6 9.0 ??RED?BLOOD?COUNT?(Miln/mm3) 4.38 4.22 ??HEMOGLOBIN?(gm/dl) 14.3 13.5 ??HEMATOCRIT?(%) 40.7 39.8 ??PLATELET?COUNT?(Thou/mm3) 258 242 ??NEUTROPHILS?%,?AUTO?(%) 65 71 ??LYMPH?%,?AUTO?(%) 25 19 ??NEUTROPHILS,?AUTO?(Thou/mm3) 4.3 6.4 ??GLUCOSE,RANDOM?(mg/dL) 107?H 103 ??BLOOD?UREA?NITROGEN?(mg/dL) 7?L 9 ??CREATININE?(mg/dL) 0.50?L 0.60 ??SODIUM?(mmol/L) 142 139 ??POTASSIUM?(mmol/L) 3.8 3.9 ??CHLORIDE?(mmol/L) 105 106 ??CrCl?(CandG)?(ml/min) 144.42 104.20 ??AST/SGOT?(Unit/L) 17 20 ??ALT/SGPT?(Unit/L) 15 22 ??ALKALINE?PHOSPHATASE?(Unit/L) 141?H 161?H ??BILIRUBIN,?TOTAL?(mg/dL) 0.5 0.7 ??PROTEIN?TOTAL?(gm/dl) 6.3 6.3 ??ALBUMIN,?SERUM?(gm/dl) 4.0 3.9 ??GLOBULIN?(gm/dl) 2.3 2.4 ??ALBUMIN/GLOBULIN?RATIO 1.7 1.6 ??CALCIUM,?SERUM?(mg/dL) 8.7 9.1 ??CALCIUM?SERUM?(CORRECTED)?(mg/dL) 8.7 9.2 ASSESSMENT/PLAN: Stage IV left breast moderately differentiated ER positive CA negative HER2 3+ IHC positive invasive ductal carcinoma s/p ultrasound-guided biopsy on 03/29/2023. Left breast biopsy sample as well as left axillary biopsy sample showed invasive ductal carcinoma. Liver lesion biopsy for metastatic disease patient received TCHP chemotherapy patient is on trastuzumab pertuzumab now Assessment and Plan: Jolie, female patient with stage 4 breast cancer, presenting for follow-up after treatment. PET-CT scan shows negative results, with cancer almost gone from the breast and a previously noted small spot in the liver now resolved. Stage 4 Breast Cancer Assessment: Patient has stage 4 breast cancer, currently responding well to treatment. Recent PET-CT scan shows negative results, indicating significant improvement. The cancer in the left breast is almost gone, and a previously noted small spot in the liver has resolved. Physical examination of the left breast reveals no pain or tenderness. The patient is tolerating the current treatment well without major side effects. Plan: - Continue current cancer treatment regimen - Repeat PET-CT scan in 2 months to assess for full remission - Follow-up appointment in 2 months - If full remission achieved, consider referral for bilateral mastectomy with implant reconstruction - Discussed risks and benefits of prophylactic mastectomy - Patient expressed understanding and agreement with potential surgical plan - Defer surgical intervention until full remission is achieved and confirmed Echo reviewed and is stable Next echo in 3 months and continue HP ORDERS: Order # Description [id number] Cardiac ECHO [id number] Cardiac ECHO RETURN TO CLINIC: BILLING AND COMPLIANCE: I reviewed external records from providers outside my specialty as summarized above. I spent a total of 50 minutes on this patient?s care on the day of their visit excluding time spent related to any billed procedures. This time includes time spent with the patient as well as time spent documenting in the medical record, reviewing patients records and tests, obtaining history, placing orders, communicating with other healthcare professionals, counseling the patient, family or caregiver, and/or care coordination for the diagnoses above. Electronically Signed by: {Object.Sanct_ID*[email or web address]@M}, {Object.Sanct_ID*PnP.Suffix@U} D: {Object.Sanct_Date} T: {Object.Sanct_Time} CC: Reynold?Riki,? PCP: Kelby Sorenson Referring: Kelby Sorenson This document was completed utilizing speech recognition software. Grammatical errors, random word insertions, pronoun errors, and incomplete sentences are an occasional consequence of this system due to software limitations, ambient noise, and hardware issues. Any formal questions or concerns about the content, text or information contained within the body of this dictation should be directly addressed to the provider for clarification.
== END 2024-11-17 23:59 | disposition home or self-care (01) ==
LOC: SCTC 08:38
PROVIDERS: PCP Family Medicine; Referring Provider Family Medicine; Visit Provider Internal Medicine Hematology & Oncology
DX: Z51.11 Encounter for antineoplastic chemotherapy (principal); C50.212 Malignant neoplasm of upper-inner quadrant of left female breast; C77.3 Secondary and unspecified malignant neoplasm of axilla and upper limb lymph nodes; C78.7 Secondary malignant neoplasm of liver and intrahepatic bile duct; Z17.0 Estrogen receptor positive status [ER+]; Z17.22 Progesterone receptor negative status; Z17.31 Human epidermal growth factor receptor 2 positive status
CPT/HCPCS: 36591; 80053; 85025; 86300; 96367; 96413; 96417; 99211; 99212; A4216; J1642; J2405; J7040; J7050; J9306; Q5117; G0463

== ENCOUNTER → 2024-11-13 | Outpatient (CLI) | payer MEDICAID, SELFPAY ==
--- NOTE | 2024-11-13 16:30 | ECHO_ITS ---
Transthoracic Echo Report Ht (in): Wt (lb): Exam Location: Echo Lab Status: Outpatient Cell Tuber Machine: Mirta Mcgrath Indications: Procedure Performed: BP: / HR: Technical Quality: Technically difficult study MEASUREMENTS (Male / Female) Normal Values 2D ECHO LV Diastolic Diameter PLAX 3.9 cm 4.2 - 5.9 / 3.9 - 5.3 cm LV Systolic Diameter PLAX 2.4 cm IVS Diastolic Thickness 1.0 cm 0.6 - 1.0 / 0.6 - 0.9 cm LVPW Diastolic Thickness 1.0 cm 0.6 - 1.0 / 0.6 - 0.9 cm LV Relative Wall Thickness 0.5 LVOT Diameter 1.9 cm Aortic Root Diameter 2.9 cm Ascending Aorta Diameter 2.7 cm M-MODE Aortic Root Diameter MM 2.7 cm LA Systolic Diameter MM 3.2 cm LA Ao Ratio MM 1.2 AV Cusp Separation MM 1.9 cm DOPPLER AV Peak Velocity 115.0 cm/s AV Peak Gradient 5.3 mmHg AV Mean Gradient 3.0 mmHg AV Velocity Time Integral 19.6 cm LVOT Peak Velocity 81.3 cm/s LVOT Peak Gradient 2.6 mmHg LVOT Velocity Time Integral 16.5 cm AV Area Cont Eq vti 2.4 cm? AV Area Cont Eq pk 2.0 cm? MV Area PHT 4.9 cm? Mitral E Point Velocity 55.8 cm/s Mitral A Point Velocity 70.3 cm/s Mitral E to A Ratio 0.8 LV E' Lateral Velocity 10.1 cm/s Mitral E to LV E' Lateral Ratio 5.5 LV E' Septal Velocity 6.9 cm/s Mitral E to LV E' Septal Ratio 8.1 PV Peak Velocity 85.5 cm/s PV Peak Gradient 2.9 mmHg FINDINGS Left Ventricle Normal left ventricular size, wall thickness, systolic function with no obvious regional wall motion abnormalities. The ejection fraction is visually estimated at 60-65%. There is grade I diastolic dysfunction of the left ventricle (impaired relaxation pattern). Right Ventricle The right ventricle is normal in size and systolic function. Left Atrium The left atrium is normal by two-dimensional, color flow and Doppler imaging with no structural abnormalities, no thrombus formation present. Right Atrium The right atrium is normal by two-dimensional imaging, color flow and Doppler imaging with no structural abnormalities, no thrombus formation present. Atrial Septum The interatrial septum appears normal with no evidence of a shunt. Aorta The aorta is normal by two-dimensional, color flow and Doppler interrogation. Mitral Valve The mitral valve is normal by two-dimensional, color flow and Doppler interrogation. Trace mitral regurgitation. Aortic Valve The aortic valve is trileaflet and normal by two-dimensional, color flow and Doppler interrogation. There is no significant aortic valve regurgitation. Tricuspid Valve The tricuspid valve is normal by two-dimensional, color flow and Doppler interrogation. There is trace tricuspid valve regurgitation. Pulmonic Valve The pulmonic valve is not well visualized. There is no significant pulmonic valve regurgitation. Vessels The pulmonary artery appears normal. The inferior vena cava pulmonary and hepatic veins appear normal. Pericardium The pericardium is normal by two-dimensional imaging. There is no significant pericardial effusion. CONCLUSIONS Indication: Malignant neoplasm of central portion of left Normal LV size and function. Estimated at 60-65%. Grade I diastolic dysfunction. The RV is normal in size and systolic function. Trace MR and TR. Danny Lee (Electronically Signed) Final Date: 14 November 2024 11:04
== END | disposition home or self-care (01) ==
LOC: SDIM 15:50
PROVIDERS: PCP Physician Assistant; Referring Provider Internal Medicine Hematology & Oncology; Visit Provider Internal Medicine Hematology & Oncology
DX: C50.112 Malignant neoplasm of central portion of left female breast (principal); I50.30 Unspecified diastolic (congestive) heart failure; I08.1 Rheumatic disorders of both mitral and tricuspid valves
CPT/HCPCS: 93306

== ENCOUNTER 2024-12-13 10:23 | Emergency (ER) | payer MEDICAID, SELFPAY ==
[2024-12-13 10:24] VITALS: BMI 26.6
[2024-12-13 10:38] VITALS: BP 135/82; PULSE 88; RESP 20; TEMP 37; O2SAT 97
--- NOTE | 2024-12-13 10:38 | XR_ITS ---
Examination: Duplex scan of the upper extremity, unilateral left Date and time of exam: December 13, thousand 25, 1042 hrs. Indications: Left arm pain and numbness today, diagnosis stage IV breast cancer undergoing chemotherapy Technique: Duplex scan of the extremity veins using B-mode/grayscale imaging and Doppler spectral analysis and color flow Attention is directed to internal echogenicity, compression and augmentation involving these veins, color flow assessment, spectral analysis Findings: Major deep venous structures in the extremity demonstrate normal course and caliber. There is no evidence of deep vein thrombosis. Normal color flow and spectral analysis Impression: Negative for DVT..
--- NOTE | 2024-12-13 11:10 | PD.EDEXREM ---
ED Extremity Problem RME/HPI General Chief complaint: Extremity Problem,Nontraumatic Stated complaint: LEFT ARM PAIN/STIFF SINCE 1999 LAST NIGHT Time Seen by Provider: 12/13/24 10:37 Arrival date/time: 12/13/24 10:23 54-year-old female with medical history significant for cancer and methamphetamine abuse presents emergency department today with complaints of left arm pain patient ports pain is worse with movement and worse with laying on the left arm patient ports no direct trauma. Limitations: no limitations Related Data Previous Rx's ?Medication ?Instructions ?Recorded hydrocodone 5 mg-acetaminophen 325 1 tab PO BID PRN pain #10 tabs 12/03/23 mg tablet ibuprofen 600 mg tablet 600 mg PO Q6H #30 tabs 12/03/23 diphenhydramine HCl 25 mg capsule 25 mg PO Q8H PRN allergic symptoms 05/01/24 (Benadryl) #30 caps doxycycline hyclate 100 mg tablet 100 mg PO BID #14 tabs 05/01/24 cyclobenzaprine 10 mg tablet 10 mg PO TID PRN muscle spasm 10 12/13/24 days #30 tab-caps ibuprofen 800 mg tablet 800 mg PO TID PRN pain #30 tabs 12/13/24 Allergies Allergy/AdvReac Type Severity Reaction Status Date / Time walnut Allergy Severe Swelling Verified 12/13/24 10:26 of Lip/Tongue/Throat Review of Systems Review of Systems Systems Reviewed: All systems reviewed, normal except as documented Constitutional Constitutional: Reports system reviewed and no additional complaints, except as documented, Denies fever(s) and Denies headache(s) Eyes Eyes: Reports system reviewed and no additional complaints, except as documented and Denies blurry vision ENT Ears, Nose, Mouth, and Throat: Reports system reviewed and no additional complaints, except as documented, Denies headache(s), Denies nasal congestion and Denies nasal discharge Cardiovascular Cardiovascular: Reports system reviewed and no additional complaints, except as documented, Denies chest pain and Denies dyspnea Respiratory Respiratory: Reports system reviewed and no additional complaints, except as documented, Denies chest congestion, Denies cough and Denies dyspnea Gastrointestinal Gastrointestinal: Reports system reviewed and no additional complaints, except as documented and Denies abdominal pain Musculoskeletal Musculoskeletal: Reports system reviewed and no additional complaints, except as documented, Reports arthralgias, Denies deformity and Reports other (Left arm pain) Integumentary/Breasts Skin/Breast: Reports system reviewed and no additional complaints, except as documented and Denies rash Neurologic Neurologic: Reports system reviewed and no additional complaints, except as documented, Reports as per HPI and Denies headache(s) Past Medical History Past Medical History NEUROLOGIC: Negative Neurological Disorders, Cerebrovascular Accident, Transient Ischemic Attacks (TIA), Dementia, Parkinson's Disease, Brain Tumor, Meningitis, Seizures, Epilepsy, Multiple Sclerosis, Cerebral Palsy, Amyotrophic Lateral Sclerosis (ALS/Rita Gehrig's), Guillain-[place] Syndrome, Spina Bifida, Paralysis, Peripheral Neuropathy, Okeefe's Palsy, Subdural Hematoma, Migraine, Head Trauma, Spinal Cord Injury or Traumatic Brain Injury CARDIAC: Negative Cardiac Disorders, Myocardial Infarction, Cardiac Arrhythmia, Atrial Fibrillation, Angina, Heart Murmur, Coronary Artery Disease, Atherosclerotic Heart Disease, Peripheral Vascular Disease, Hypercholesterolemia, Aneurysm, Congestive Heart Failure, Congenital Heart Disease, Valvular Heart Disease, Rheumatic Fever, Cardiomyopathy, Edema, Pericarditis, Cellulitis, Deep Vein Thrombosis, Hypertension, Hypotension or Varicose Veins RESPIRATORY: Negative Chronic Obstructive Pulmonary Disease (COPD), Asthma, Bronchitis, Emphysema, Pneumonia, Pulmonary Fibrosis, Cystic Fibrosis, Tuberculosis, Pulmonary Embolism, Pulmonary Edema or Sleep Apnea GASTROINTESTINAL: Negative Gastrointestinal Disorders, Hepatitis, Cirrhosis, Pancreatitis, Celiac Disease, Gall Bladder Disease, Gastrointestinal Bleed, Esophageal Varices, Maxwell's Esophagus, Colitis, Ulcerative Colitis, Diverticulitis, Diverticulosis, Ulcer, Colorectal Cancer, Irritable Bowel, Crohn's Disease, Obstructive Bowel, Hiatal Hernia, Hemorrhoids, Gastroesophageal Reflux Disease or Obesity GENITOURINARY: Negative Genitourinary Disorders, Renal Disease, Kidney Stones, Polycystic Kidney Disease, Neurogenic Bladder, Inguinal Hernia, Dialysis or Prostate Cancer REPRODUCTIVE: Positive Breast Cancer; Negative Endometriosis, Genital Herpes, Gonorrhea, Pelvic Inflammatory Disease, Previous Pregnancies, Syphilis, Testicular Cancer or Uterine Prolapse MUSCULOSKELETAL: Negative Musculoskeletal Disorders, Muscular Dystrophy, Myasthenia Gravis, Marfan's Syndrome, Bone Cancer, Arthritis, Rheumatoid Arthritis, Osteoporosis, Degenerative Disk Disease, Gout, Scoliosis, Carpal Tunnel Syndrome, Fibromyalgia, Fractures, Degenerative Joint Disease, Osteomyelitis or Poliovirus ENT: Positive Blind; Negative Cataracts, Glaucoma, Retinal Detachment, Macular Degeneration, Ear Infection, Deafness, Head Trauma or Eye Prosthesis ENDOCRINE: Negative Endocrine Disorders, Diabetes Mellitus Type 1, Diabetes Mellitus Type 2, Hypoglycemia, Cameron's Syndrome, Birdsnest's Disease, Hyperthyroidism, Hypothyroidism, Parathyroid Disease, Pituitary Disease, Systemic Lupus Erythematosus, Syndrome of Inappropriate Antidiuretic Hormone (SIADH), Adrenal Disease or Graves' Disease HEMATOLOGIC: Negative Sickle Cell Disease PSYCHO/SOCIAL: Negative Psychiatric Problems, Schizophrenia, Recreational Drug Use, Bipolar Disorder, Depression, Anxiety, Behavior Problems, Self-Mutilation, Attention Deficit Disorder, Attention Deficit Hyperactivity Disorder, Depression, Post Traumatic Stress Disorder or Eating Disorder OTHER HISTORY: Positive Chicken Pox, Cancer and Breast Cancer; Negative Hospitalization, Autoimmune Disease, Down Syndrome, Autism, Developmental Delay, Shingles, Falls, Blood Transfusions, Blood Transfusion Reaction, Anesthesia Reactions, Organ Transplant, Chemotherapy, Radiation Therapy, Hyperbaric Therapy, MRSA, VRSA, Vancomycin-Resistant Enterococci, Human Immunodeficiency Virus (HIV), Measles, Mumps, Rubella ([place]z Measles), Pertussis, Clostridium Difficile, Cervical Cancer, Colorectal Cancer, Lung Cancer, Ovarian Cancer, Prostate Cancer or Testicular Cancer Family History FAMILY HISTORY: Positive Family Psychiatric Problems, Family Gastrointestinal Problems, Family Cancer and Family Surgery; Negative Family Respiratory Disorders, Family Cardiac Disorders or Family Anesthesia Reaction Surgical History SURGICAL: Positive Section; Negative Cardiac Surgery, Open Heart Surgery, Coronary Artery Bypass Graft, Valve Replacement, Vascular Surgery, Coronary Stent, Cardiac Catheterization, Pacemaker, Angiogram, Auto Implanted Cardiovert Defib, Carotid Endarterectomy, Endocrine Surgery, Thyroidectomy, Ear Surgery, Tympanostomy Tube, Eye Surgery, Nose Surgery, Oral Surgery, Tonsillectomy, Adenoidectomy, Cochlear Implant, Corneal Transplant, Throat Surgery, Abdominal Surgery, Tracheostomy, Gastric Bypass Surgery, Gastrostomy, Bowel Surgery, Joint Replacement, Amputation, Open Reduction Internal Fixation, Arthroscopy, Neurologic Surgery, Brain Shunt, Mastectomy, Lumpectomy, Hysterectomy or Organ Transplant Social History SMOKING STATUS: Former smoker SUBSTANCE USE: methamphetamine ED Exam General Limitations: Present no limitations General appearance: Present alert and in no apparent distress Head Head exam: Present atraumatic Eye Eye exam: Present normal appearance, PERRL and EOMI ENT ENT exam: Present normal exam, normal oropharynx and mucous membranes moist Neck Neck exam: Present normal inspection, full ROM and trachea midline Chest Chest inspection: Present normal inspection and symmetric chest wall rise Respiratory Respiratory exam: Present normal lung sounds bilaterally Cardiovascular Cardiovascular exam: Present regular rate, normal rhythm and normal heart sounds Abdominal Exam Abdominal exam: Present soft and normal bowel sounds Extremities Exam Extremities exam: Present full ROM, tenderness and normal capillary refill; Absent joint swelling Back Exam Back exam: Present normal inspection and full ROM Neurological Exam Neurological exam: Present alert, oriented X3 and CN II-XII intact Psychiatric Psychiatric exam: Present normal affect and normal mood Skin Skin exam: Present warm, dry, intact and normal color Course Quality Measures none Orders Category Date Time Status EKG (ED Only) Stat Exams 12/13/24 10:28 Stop Req US venous doppler UE LT Stat Exams 12/13/24 10:38 Completed Ketorolac Inj [Toradol Inj] Med 12/13/24 10:38 Discontinued 30 mg IM X1 ONE Vital Signs Vital signs: Vital Signs Temperature 98.6 F 12/13/24 10:38 Pulse Rate 88 12/13/24 10:38 Respiratory Rate 20 12/13/24 10:38 Blood Pressure 135/82 H 12/13/24 10:38 Pulse Oximetry (%) 97 12/13/24 10:38 Oxygen Delivery Method Room Air 12/13/24 10:38 O2 saturation 97% room air with normal limits Extremity Problem MDM Narrative MDM Narrative:: 54-year-old female with medical history significant for cancer and methamphetamine abuse presents emergency department today with complaints of left arm pain patient ports pain is worse with movement and worse with laying on the left arm patient ports no direct trauma. On exam patient with appearing patient does not appear ill or toxic no acute distress Ultrasound left arm obtained acute DVT noted Patient is no bruising or swelling no deformity patient is equal strength bilaterally Patient reports no headache or dizziness or weakness Patient given Toradol for pain Patient discharged home in no distress to follow-up with primary care doctor in the next 24 to 48 hours and for any worsening symptoms to return to the ER immediately Patient data External records reviewed:: [facility] previous records Clinical information provided by:: patient Social determinants that could affect healthcare access:: none Patient has the following chronic illnesses:: History How is presenting disease/condition affected by chronic disease/condition?: uneffected by Evaluation data The following diagnostics were reviewed and interpreted by me:: radiology exam(s) Lab and/or radiology exams considered but not ordered:: Radiology obtain Interpretation Summary: Reviewed by me Medications / Prescriptions Medications or Prescriptions considered but not ordered:: Given Medication administrations:: Medication Administration History Discontinued Medications Ketorolac Tromethamine (Ketorolac Inj 30 Mg/Ml Vial) 30 mg IM X1 ONE Stop: 12/13/24 10:39 Last Admin: 12/13/24 11:13 Dose: 30 mg Documented By: Given Consultations Consultation(s) initiated? (list below): No Diagnosis Extremity Problem Differential Diagnosis: other (Left arm pain, muscle spasm, muscle strain) Most likely diagnosis given after review of the tests above:: Left arm pain Admission Indicated Admission indicated?: not indicated Admission Request Was there a request for admission?: No Disposition Plan Disposition Plan: Discharge Discharge Attestation Discharge Attestation: The patient and all family members were given an opportunity to ask questions and understood the discharge instructions. Discharge instructions specifically effects, indications for sooner follow up or return to the emergency department, and the expected course of current diagnosis. Patient condition: Stable Discharge Plan Plan Patient Disposition: HOME (Self Care) Discharge Disposition comment: Stable Prescriptions/Referrals Prescriptions/Med Rec: New cyclobenzaprine 10 mg tablet 10 mg PO TID PRN (Reason: muscle spasm) 10 Days Qty: 30 0RF ibuprofen 800 mg tablet 800 mg PO TID PRN (Reason: pain) Qty: 30 0RF No Action hydrocodone-acetaminophen 5-325 mg tablet 1 tab PO BID MDD 10 PRN (Reason: pain) Qty: 10 0RF ibuprofen 600 mg tablet 600 mg PO Q6H Qty: 30 0RF diphenhydramine HCl [Benadryl] 25 mg capsule 25 mg PO Q8H PRN (Reason: allergic symptoms) Qty: 30 0RF doxycycline hyclate 100 mg tablet 100 mg PO BID Qty: 14 0RF Problem List Clinical Impression: Arm pain, left Patient/Caregiver Discharge Instructions Education Materials: ED Myalgias Additional Instructions: Please follow up with your primary care doctor in the next 24-48hrs for any worsening symptoms return here immediately Print Language: [place] Islander Stand Alone Forms: [employer] Info., Patient Portal Info Letter PA/POND SCALER Supervising Physician PA/POND SCALER Supervising Physician: Dr. Marrufo
[2024-12-13] MEDS: KETOROLAC INJ 30 MG/ML VIAL IM (11:13)
== END 2024-12-13 11:38 | disposition home or self-care (01) ==
LOC: SERX 11:23
PROVIDERS: Emergency Provider Emergency Medicine; PCP Family Medicine
DX: T82.848A Pain due to vascular prosthetic devices, implants and grafts, initial encounter (principal); Y83.8 Other surgical procedures as the cause of abnormal reaction of the patient, or of later complication, without mention of misadventure at the time of the procedure
CPT/HCPCS: 93971; 96372; 99283; J1885

== ENCOUNTER 2024-12-18 10:46 | Outpatient (RCR) | payer MEDICAID, SELFPAY ==
[2024-12-01 12:31] LABS: Basophils # (Auto) 0.0 Thou/mm3 (0.0-0.2); Basophils % (Auto) 0 % (0-2.5); Eosinophils # (Auto) 0.1 Thou/mm3 (0.0-0.5); Eosinophils % (Auto) 2 % (0-10); Hematocrit 40.3 % (36.0-46.0); Hemoglobin 14.2 g/dL (12.0-16.0); Immature Granulocytes Auto 0.00 Thou/mm3 (0.00-0.00); Lymphocytes # (Auto) 1.8 Thou/mm3 (1.0-4.8); Lymphocytes % (Auto) 27 % (10-50); Mean Corpuscular HGB Conc 35.2 g/dl (31.0-37.0); Mean Corpuscular Hemoglobin 32.1 pg (25.0-35.0); Mean Corpuscular Volume 91 fL (80-100); Monocytes # (Auto) 0.4 Thou/mm3 (0.0-0.8); Monocytes % (Auto) 7 % (0-12); Neutrophils # (Auto) 4.4 Thou/mm3 (1.8-7.7); Neutrophils % (Auto) 65 % (37-80); Nucleated Red Blood Cell # 0.00 Thou/mm3 (0.00-0.00); Nucleated Red Blood Cell % 0 /100 WBC (0); Platelet Count 264 Thou/mm3 (140-440); RDW Standard Deviation 46.0 fL (36.4-46.3); Red Blood Count 4.43 Miln/mm3 (4.00-5.20); White Blood Count 6.7 Thou/mm3 (3.6-11.0)
[2024-12-01 12:43] LABS: Alanine Aminotransferase 23 U/L (10-49); Albumin, Serum 4.2 gm/dL (3.5-5.0); Albumin/Globulin Ratio 1.4 (1.2-2.2); Alkaline Phosphatase 159 U/L (46-116); Anion Gap 11 (7-16); Aspartate Amino Transferase 24 U/L (0-34); BUN/Creatinine Ratio 20 Ratio (12-20); Bilirubin,Total 0.5 mg/dL (0.3-1.2); Blood Urea Nitrogen 12 mg/dL (9-23); Calcium 9.4 mg/dL (8.3-10.6); Calcium (Corrected) 9.4 mg/dL (8.5-10.1); Carbon Dioxide 27.5 mMol/L (20.0-31.0); Chloride 104 mMol/L (98-107); Creatinine (Component) 0.6 mg/dL (0.6-1.3); Globulin 3.0 gm/dL (2.3-3.5); Glucose 127 mg/dL (74-106); Osmolality,Calculated 284 (275-295); Potassium 4.0 mMol/L (3.4-5.1); Sodium 142 mMol/L (136-145); Total Protein 7.2 gm/dL (5.7-8.2); eGFR > 60 See Note
[2024-12-01 13:00] LABS: CA 15-3 10.2 U/mL (<32.4)
--- NOTE | 2024-12-22 06:22 | CTCFLWUP_ITS ---
Patient: TRICIA DAVE : 1970 Page 6 of 7 FOLLOW UP NOTE DATE OF SERVICE: 12/18/2024 NAME: TRICIA DAVE ACCOUNT: [id number] : 1970 AGE: 54 INTERVAL HISTORY: Patient is doing well since the last visit. Subjective: Chief Complaint Follow-up for breast cancer treatment, discussion about potential bilateral mastectomy History of Present Illness Jolie is a female patient with stage 4 breast cancer presenting for follow-up. She reports doing well with her current treatment regimen, stating I'm doing good when asked about side effects. The patient's left breast was the primary site of her cancer. She denies any pain in the breast area, only reporting that it tickles when examined. Jolie expresses a desire to undergo bilateral mastectomy with implant reconstruction to prevent cancer recurrence, stating I'm okay with that. I've been talking to my family... I don't want it to come back. She acknowledges the seriousness of her condition, understanding it as stage 4 cancer. Jolie appears to be adhering to her prescribed treatment plan and is showing positive progress. She reports no major side effects from her current treatment. Objective: Physical Examination Breast: Left breast examined. No pain or tenderness noted on palpation. Area where cancer was previously located is described as very clear. Laboratory, Imaging, and Diagnostic Test Results - PET-CT scan: Negative ONCOLOGY HISTORY: DIAGNOSIS: Stage IV moderately differentiated, left breast ER positive, [place] negative, HER2/pennie 3+ IHC positive invasive ductal carcinoma, s/p ultrasound-guided biopsy (03/29/2023) Status post biopsy-proven liver metastatic disease (07/27/2023) Currently on pertuzumab, trastuzumab and docetaxel started on 08/15/2023. PET/CT scan (01/29/2024) shows significant improvement History of methamphetamine usage Right eye blindness. DATE OF DIAGNOSIS: 03/29/2023 STAGE/TNM: Stage 4 TREATMENT HISTORY: Care?Plan Start?Date Cycle Day Intent DOCETAXEL,?HERCEPTIN,?PERJETA,?CARBO 05/23/2023 1 21 Induction-Primary Pertuzumab,?Trastuzumab?and?Docetaxel 08/14/2023 1 21 Palliative?(other) Pertuzumab,?Trastuzumab?and?Docetaxel?continuation 01/30/2024 1 21 Palliative Herceptin?6mg/kg;?Perjeta?300?mg 08/28/2024 1 21 Curative?(primary) herceptin?perjeta?adjuvant?for?11?cycles?after?tchp 09/04/2024 1 21 Palliative Herceptin?6mg/kg;?Perjeta?300?mg 08/25/2027 1 21 Maintenance HISTORY OF PRESENT ILLNESS: Tricia Dave is a 54-year-old ENG speaking female with 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 Ms. Dave never had screening mammograms in the past. November 2022: The patient started noticing retraction of the left nipple. Few weeks later she felt a lump in the left breast. 02/12/2023: Left breast ultrasound 03/28/2023: Bilateral diagnostic digital mammogram? 03/29/2023: Ms. Dave had left breast 10:00 nodule, 11:00 nodule as well as left axillary lymph node ultrasound-guided biopsy. 05/15/2023: Echocardiogram showed an ejection fraction of 60 to 65%. 05/25/2023: PET/CT scan 05/31/2023: Bilateral breast MRI with and without contrast 07/17/2023: CT scan of the chest with IV contrast 07/27/2023: CT-guided biopsy of the left lobe liver lesion? 08/15/2023: Ms. Dave is started on pertuzumab, trastuzumab as well as docetaxel chemotherapy. 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 Arimidex - 1 mg 1 tab Daily 2. dexamethasone - 4 mg 4 mg Daily 3. losartan - 50 mg 1 tab Daily Medications Last Reconciled by Aiyana Anderson MD on 12/18/2024 ALLERGIES: No Known Drug Allergies REVIEW OF SYSTEMS: A complete 14-point review of systems was performed and is negative except as noted in interval history. PHYSICAL EXAMINATION: VITAL SIGNS: Temperature?98, B/P?157/82, Oxygen?Saturation?98% Weight?155?lbs (Change?since?12/02/24:?-0.4?lbs) PAIN: 0 - No pain ECOG Performance Status: 0 - Asymptomatic and fully active EYE: Conjunctivae is white MOUTH: Oral cavity moist . CHEST: Clear to auscultation. No wheezes or rales audible. CARDIAC: Rhythm regular, no murmurs or gallops present. ABDOMEN: Soft. No hepatomegaly. No splenomegaly. EXTREMITIES: No pedal edema or cyanosis. Breast with no masses now LABORATORY DATA: I have personally reviewed and interpreted each of the patient?s relevant lab tests, abnormal findings are below: Date 11/07/24 12/01/24 ??WHITE?BLOOD?COUNT?(Thou/mm3) 9.0 6.7 ??RED?BLOOD?COUNT?(Miln/mm3) 4.22 4.43 ??HEMOGLOBIN?(gm/dl) 13.5 14.2 ??HEMATOCRIT?(%) 39.8 40.3 ??PLATELET?COUNT?(Thou/mm3) 242 264 ??NEUTROPHILS?%,?AUTO?(%) 71 65 ??LYMPH?%,?AUTO?(%) 19 27 ??NEUTROPHILS,?AUTO?(Thou/mm3) 6.4 4.4 ??GLUCOSE,RANDOM?(mg/dL) 103 127?H ??BLOOD?UREA?NITROGEN?(mg/dL) 9 12 ??CREATININE?(mg/dL) 0.60 0.60 ??SODIUM?(mmol/L) 139 142 ??POTASSIUM?(mmol/L) 3.9 4.0 ??CHLORIDE?(mmol/L) 106 104 ??CrCl?(CandG)?(ml/min) 104.20 120.35 ??AST/SGOT?(Unit/L) 20 24 ??ALT/SGPT?(Unit/L) 22 23 ??ALKALINE?PHOSPHATASE?(Unit/L) 161?H 159?H ??BILIRUBIN,?TOTAL?(mg/dL) 0.7 0.5 ??PROTEIN?TOTAL?(gm/dl) 6.3 7.2 ??ALBUMIN,?SERUM?(gm/dl) 3.9 4.2 ??GLOBULIN?(gm/dl) 2.4 3.0 ??ALBUMIN/GLOBULIN?RATIO 1.6 1.4 ??CALCIUM,?SERUM?(mg/dL) 9.1 9.4 ??CALCIUM?SERUM?(CORRECTED)?(mg/dL) 9.2 9.4 ASSESSMENT/PLAN: Stage IV left breast moderately differentiated ER positive [place] negative HER2 3+ IHC positive invasive ductal carcinoma s/p ultrasound-guided biopsy on 03/29/2023. Left breast biopsy sample as well as left axillary biopsy sample showed invasive ductal carcinoma. Liver lesion biopsy for metastatic disease patient received TCHP chemotherapy patient is on trastuzumab pertuzumab now Plan: - Continue current cancer treatment regimen - Repeat PET-CT scan in 2 months to assess for full remission - Follow-up appointment in 2 months - If full remission achieved, consider referral for bilateral mastectomy with implant reconstruction - Discussed risks and benefits of prophylactic mastectomy - Patient expressed understanding and agreement with potential surgical plan - Defer surgical intervention until full remission is achieved and confirmed Echo reviewed and is stable Next echo in 3 months and continue HP ORDERS: Order # Description [id number] [employer] [id number] MD Follow Up 2 Months RETURN TO CLINIC: I reviewed the diagnosis, prognosis, and recommended treatment/procedure options with the patient (and/or their legal labor union business representative), including the potential benefits, risks, side effects and alternative therapies. We also discussed the option of no treatment and the possibility of clinical trial participation, if applicable. All questions were addressed, and they demonstrated understanding. They provided informed consent to proceed with the proposed plan of care. BILLING AND COMPLIANCE: I reviewed external records from providers outside my specialty as summarized above. I spent a total of 50 minutes on this patient?s care on the day of their visit excluding time spent related to any billed procedures. This time includes time spent with the patient as well as time spent documenting in the medical record, reviewing patients records and tests, obtaining history, placing orders, communicating with other healthcare professionals, counseling the patient, family or caregiver, and/or care coordination for the diagnoses above. Electronically Signed by: {Object.Sanct_ID*PnP.NameFL@M}, {Object.Sanct_ID*PnP.Suffix@U} D: {Object.Sanct_Date} T: {Object.Sanct_Time} CC: Reynold?ALVARO Lyn PCP: Tosin Kerr Referring: Reynold Lyn This document was completed utilizing speech recognition software. Grammatical errors, random word insertions, pronoun errors, and incomplete sentences are an occasional consequence of this system due to software limitations, ambient noise, and hardware issues. Any formal questions or concerns about the content, text or information contained within the body of this dictation should be directly addressed to the provider for clarification.
== END 2024-12-18 23:59 | disposition home or self-care (01) ==
LOC: SCTC 10:46
PROVIDERS: PCP Physician Assistant; Referring Provider Physician Assistant; Visit Provider Internal Medicine Hematology & Oncology
DX: Z51.11 Encounter for antineoplastic chemotherapy (principal); C50.212 Malignant neoplasm of upper-inner quadrant of left female breast; C78.7 Secondary malignant neoplasm of liver and intrahepatic bile duct; C77.3 Secondary and unspecified malignant neoplasm of axilla and upper limb lymph nodes; Z17.0 Estrogen receptor positive status [ER+]; Z17.22 Progesterone receptor negative status; Z17.31 Human epidermal growth factor receptor 2 positive status
CPT/HCPCS: 36591; 80053; 85025; 86300; 96367; 96413; 96417; A4216; J1642; J2405; J7040; J7050; J9306; Q5117

== ENCOUNTER 2024-12-18 11:32 | Emergency (ER) | payer MEDICAID, SELFPAY ==
[2024-12-18 12:09] VITALS: BP 147/99; PULSE 99; RESP 16; TEMP 37; O2SAT 95; BMI 25.7
--- NOTE | 2024-12-18 12:33 | EDNOTE_ITS ---
ED Extremity Problem RME/HPI General Chief complaint: Extremity Problem,Nontraumatic Stated complaint: LEFT ARM PAIN X 5 DAYS; SENT BY [facility] Time Seen by Provider: 12/18/24 11:37 Arrival date/time: 12/18/24 11:32 RME / HPI RME / HPI Narrative: 54-year-old female patient was sent to us by PCP for left shoulder pain. Patient sustained injury to the left shoulder for several days more than 5 days ago, was seen here yesterday, and ultrasound of the arm was done it was negative for DVT. Went to PCP,/cancer center, and sent here for x-ray of the shoulder. Patient denies any other complaints denies any chest pain denies any shortness of breath. Related Data Previous Rx's ?Medication ?Instructions ?Recorded hydrocodone 5 mg-acetaminophen 325 1 tab PO BID PRN pa in #10 tabs 12/03/23 mg tablet ibuprofen 600 mg tablet 600 mg PO Q6H #30 tabs 12/02 diphenhydramine HCl 25 mg capsule 25 mg PO Q8H PRN all ergic symptoms 05/01/24 (Benadryl) #30 caps doxycycline hyclate 100 mg tablet 100 mg PO BID #14 ta bs 05/01/24 cyclobenzaprine 10 mg tablet 10 mg PO TID PRN muscle s pasm 10 12/13/24 days #30 tab-caps ibuprofen 800 mg tablet 800 mg PO TID PRN pain #30 t abs 12/13/24 Allergies Allergy/AdvReac Type Severity Reaction Status Date / Time walnut Allergy Intermediate Swelling Verified 12/18/24 11:35 of Lip/Tongue/Throat Review of Systems Review of Systems Narrative Review of Systems: Review of system reviewed and within normal limits except mentioned in HPI ED Exam Narrative Physical exam: VITAL SIGNS: Reviewed. GENERAL APPEARANCE: Alert and interactive, follows commands, no acute distress, HEAD AND FACE: Non-traumatic. ENT: PERRL, pink conjunctivitis, eyelid no trauma, Mucous membrane moist. NECK: Supple, nontender, no nuchal rigidity. CHEST: No tenderness, no crepitus, no paradoxical movement, no retractions. LUNGS: Clear, well ventilated, symmetric, no rales, no wheezing, no ronchi, no stridor, good breath sounds bilaterally. HEART: Regular rate, regular rhythm, no murmur, no gallops. ABDOMEN: Soft, positive bowel sounds, nondistended, no guarding, nontender, no rebound, no masses, RECTAL: Deferred. GENITAL: Deferred. NEUROLOGICAL: Gross motor function intact sensory function intact, Appropriate for age. MUSCULOSKELETAL: low back nontender, full range of motion. EXTREMITIES: Left shoulder tenderness, full range of motion. Distal neurovascular status intact bilateral upper extremity SKIN: Color pink, dry, no rash, no lacerations, no abrasions, no contusions. LYMPHATICS: Deferred. Course Quality Measures none Orders Category Date Time Status XR shoulder LT min 2V Stat Exams 12/18/24 12:33 Completed Ibuprofen Tab [Motrin Tab] Med 12/18/24 12:33 Discontinued 800 mg PO X1 ONE Vital Signs Vital signs: Vital Signs Temperature 98.6 F 12/18/24 12:09 Pulse Rate 99 12/18/24 12:09 Respiratory Rate 16 12/18/24 12:09 Blood Pressure 147/99 H 12/18/24 12:09 Pulse Oximetry (%) 95 12/18/24 12:09 Oxygen Delivery Method Room Air 12/18/24 12:09 Extremity Problem MDM Narrative MDM Narrative:: 54-year-old female patient was sent to us by PCP for left shoulder pain. Patient sustained injury to the left shoulder for several days more than 5 days ago, was seen here yesterday, and ultrasound of the arm was done it was negative for DVT. Went to PCP,/cancer center, and sent here for x-ray of the shoulder. Patient denies any other complaints denies any chest pain denies any shortness of breath. X-ray of the shoulder showed minimal acromioclavicular joint separation, grade 1. Patient was placed on her arm sling. Plan of care discussed with the patient. Patient data External records reviewed:: None Clinical information provided by:: patient Social determinants that could affect healthcare access:: none Patient has the following chronic illnesses:: None How is presenting disease/condition affected by chronic disease/condition?: no chronic disease Evaluation data The following diagnostics were reviewed and interpreted by me:: radiology exam(s) Lab and/or radiology exams considered but not ordered:: None Interpretation Summary: See results MDM Medications / Prescriptions Medications or Prescriptions considered but not ordered:: None Medication administrations:: Medication Administration History Discontinued Medications Ibuprofen (Ibuprofen Tab 400 Mg Tablet) 800 mg PO X1 ONE Stop: 12/18/24 12:34 Last Admin: 12/18/24 12:55 Dose: 800 mg Documented By: Motrin Consultations Consultation(s) initiated? (list below): No Diagnosis Extremity Problem Differential Diagnosis: other (Shoulder pain, AC joint separation, clavicular fracture) Most likely diagnosis given after review of the tests above:: AC joint dislocation Admission Indicated Admission indicated?: not indicated Admission Request Was there a request for admission?: No Disposition Plan Disposition Plan: Discharge Discharge Attestation Discharge Attestation: The patient was given an opportunity to ask questions and understood the discharge instructions. Discharge instructions specifically effects, indications for sooner follow up or return to the emergency department, and the expected course of current diagnosis. Patient condition: Stable Discharge Plan Plan Patient Disposition: HOME (Self Care) Discharge Disposition comment: Stable Prescriptions/Referrals Prescriptions/Med Rec: No Action hydrocodone-acetaminophen 5-325 mg tablet 1 tab PO BID MDD 10 PRN (Reason: pain) Qty: 10 0RF ibuprofen 600 mg tablet 600 mg PO Q6H Qty: 30 0RF diphenhydramine HCl [Benadryl] 25 mg capsule 25 mg PO Q8H PRN (Reason: allergic symptoms) Qty: 30 0RF doxycycline hyclate 100 mg tablet 100 mg PO BID Qty: 14 0RF cyclobenzaprine 10 mg tablet 10 mg PO TID PRN (Reason: muscle spasm) 10 Days Qty: 30 0RF ibuprofen 800 mg tablet 800 mg PO TID PRN (Reason: pain) Qty: 30 0RF Referrals: No Primary/Family,Physician [Primary Care Provider] - In 1 week Problem List Clinical Impression: Dislocation of acromioclavicular joint Patient/Caregiver Discharge Instructions Discharge Activity: activity as tolerated Education Materials: ED Joint Dislocation Additional Instructions: Thank you for the opportunity for serving you today. You are stable for discharged . You are advised to: Follow-up with your PCP in 1 to 2 days Return to ED for worsening of symptoms Increase oral fluids Take [id number] Motrin as needed for pain Wear your arm sling for the next 3 weeks. Your acromioclavicular dislocation is minimal, it will heal without any abnormality except for cosmetic. The pain will eventually go away. You do not need surgery at this time Print Language: Romansh Stand Alone Forms: [employer] Info., Patient Portal Info Letter PA/PRODUCTION MACHINE TENDER Supervising Physician PA/PRODUCTION MACHINE TENDER Supervising Physician: Dr Hayden
--- NOTE | 2024-12-18 12:33 | XR_ITS ---
Examination: Shoulder,left, 3 views Technique: Shoulder AP internal rotation, AP external rotation, Y view shoulder, 3 views Exam date and time :December 18, 2024 1303 hours INDICATIONS: Patient fell 3 days ago with injury to the shoulder, shoulder pain. FINDINGS: No shoulder fracture or dislocation 2 mm offset at the AC joint IMPRESSION: 2 mm offset at the left AC joint, clinical correlation advised
[2024-12-18] MEDS: IBUPROFEN TAB 400 MG TABLET 800 MG PO (12:55)
[2024-12-18 14:18] VITALS: BP 142/99; PULSE 84; RESP 18; TEMP 36.8; O2SAT 95
== END 2024-12-18 14:34 | disposition home or self-care (01) ==
PROVIDERS: Emergency Provider Nurse Practitioner Family
DX: S43.102A Unspecified dislocation of left acromioclavicular joint, initial encounter (principal); X58.XXXA Exposure to other specified factors, initial encounter
CPT/HCPCS: 73030; 99283; A9270

== ENCOUNTER 2025-01-13 07:57 | Outpatient (RCR) | payer MEDICAID, SELFPAY ==
[2024-12-22 12:17] LABS: Basophils # (Auto) 0.0 Thou/mm3 (0.0-0.2); Basophils % (Auto) 0 % (0-2.5); Eosinophils # (Auto) 0.2 Thou/mm3 (0.0-0.5); Eosinophils % (Auto) 3 % (0-10); Hematocrit 41.8 % (36.0-46.0); Hemoglobin 14.1 g/dL (12.0-16.0); Immature Granulocytes Auto 0.02 Thou/mm3 (0.00-0.00); Lymphocytes # (Auto) 1.9 Thou/mm3 (1.0-4.8); Lymphocytes % (Auto) 24 % (10-50); Mean Corpuscular HGB Conc 33.7 g/dl (31.0-37.0); Mean Corpuscular Hemoglobin 31.7 pg (25.0-35.0); Mean Corpuscular Volume 94 fL (80-100); Monocytes # (Auto) 0.6 Thou/mm3 (0.0-0.8); Monocytes % (Auto) 7 % (0-12); Neutrophils # (Auto) 5.4 Thou/mm3 (1.8-7.7); Neutrophils % (Auto) 66 % (37-80); Nucleated Red Blood Cell # 0.00 Thou/mm3 (0.00-0.00); Nucleated Red Blood Cell % 0 /100 WBC (0); Platelet Count 258 Thou/mm3 (140-440); RDW Standard Deviation 45.4 fL (36.4-46.3); Red Blood Count 4.45 Miln/mm3 (4.00-5.20); White Blood Count 8.2 Thou/mm3 (3.6-11.0)
[2024-12-22 12:49] LABS: Alanine Aminotransferase 13 U/L (10-49); Albumin, Serum 4.2 gm/dL (3.5-5.0); Albumin/Globulin Ratio 1.6 (1.2-2.2); Alkaline Phosphatase 153 U/L (46-116); Anion Gap 10 (7-16); Aspartate Amino Transferase 17 U/L (0-34); BUN/Creatinine Ratio 25 Ratio (12-20); Bilirubin,Total 0.6 mg/dL (0.3-1.2); Blood Urea Nitrogen 15 mg/dL (9-23); Calcium 9.2 mg/dL (8.3-10.6); Calcium (Corrected) 9.2 mg/dL (8.5-10.1); Carbon Dioxide 26.0 mMol/L (20.0-31.0); Chloride 104 mMol/L (98-107); Creatinine (Component) 0.6 mg/dL (0.6-1.3); Globulin 2.7 gm/dL (2.3-3.5); Glucose 106 mg/dL (74-106); Osmolality,Calculated 280 (275-295); Potassium 3.8 mMol/L (3.4-5.1); Sodium 140 mMol/L (136-145); Total Protein 6.9 gm/dL (5.7-8.2); eGFR > 60 See Note
[2025-01-12 12:57] LABS: Basophils # (Auto) 0.1 Thou/mm3 (0.0-0.2); Basophils % (Auto) 1 % (0-2.5); Eosinophils # (Auto) 0.1 Thou/mm3 (0.0-0.5); Eosinophils % (Auto) 2 % (0-10); Hematocrit 40.8 % (36.0-46.0); Hemoglobin 13.9 g/dL (12.0-16.0); Immature Granulocytes Auto 0.02 Thou/mm3 (0.00-0.00); Lymphocytes # (Auto) 2.2 Thou/mm3 (1.0-4.8); Lymphocytes % (Auto) 26 % (10-50); Mean Corpuscular HGB Conc 34.1 g/dl (31.0-37.0); Mean Corpuscular Hemoglobin 31.8 pg (25.0-35.0); Mean Corpuscular Volume 93 fL (80-100); Monocytes # (Auto) 0.6 Thou/mm3 (0.0-0.8); Monocytes % (Auto) 7 % (0-12); Neutrophils # (Auto) 5.3 Thou/mm3 (1.8-7.7); Neutrophils % (Auto) 64 % (37-80); Nucleated Red Blood Cell # 0.00 Thou/mm3 (0.00-0.00); Nucleated Red Blood Cell % 0 /100 WBC (0); Platelet Count 273 Thou/mm3 (140-440); RDW Standard Deviation 46.5 fL (36.4-46.3); Red Blood Count 4.37 Miln/mm3 (4.00-5.20); White Blood Count 8.4 Thou/mm3 (3.6-11.0)
[2025-01-12 13:10] LABS: Alanine Aminotransferase 20 U/L (10-49); Albumin, Serum 4.3 gm/dL (3.5-5.0); Albumin/Globulin Ratio 1.6 (1.2-2.2); Alkaline Phosphatase 152 U/L (46-116); Anion Gap 12 (7-16); Aspartate Amino Transferase 22 U/L (0-34); BUN/Creatinine Ratio 18 Ratio (12-20); Bilirubin,Total 0.7 mg/dL (0.3-1.2); Blood Urea Nitrogen 11 mg/dL (9-23); Calcium 10.1 mg/dL (8.3-10.6); Calcium (Corrected) 10.1 mg/dL (8.5-10.1); Carbon Dioxide 25.8 mMol/L (20.0-31.0); Chloride 102 mMol/L (98-107); Creatinine (Component) 0.6 mg/dL (0.6-1.3); Globulin 2.7 gm/dL (2.3-3.5); Glucose 108 mg/dL (74-106); Osmolality,Calculated 279 (275-295); Potassium 3.8 mMol/L (3.4-5.1); Sodium 140 mMol/L (136-145); Total Protein 7.0 gm/dL (5.7-8.2); eGFR > 60 See Note
== END 2025-01-18 23:59 | disposition home or self-care (01) ==
LOC: SCTC 07:57
PROVIDERS: PCP Internal Medicine; Referring Provider Internal Medicine; Visit Provider Internal Medicine Hematology & Oncology
DX: Z51.11 Encounter for antineoplastic chemotherapy (principal); C50.212 Malignant neoplasm of upper-inner quadrant of left female breast; C78.7 Secondary malignant neoplasm of liver and intrahepatic bile duct; C77.3 Secondary and unspecified malignant neoplasm of axilla and upper limb lymph nodes; Z17.0 Estrogen receptor positive status [ER+]; Z17.22 Progesterone receptor negative status; Z17.31 Human epidermal growth factor receptor 2 positive status
CPT/HCPCS: 36591; 80053; 85025; 96367; 96413; 96417; A4216; J1642; J2405; J7040; J7050; J9306; Q5117

== ENCOUNTER 2025-02-02 18:07 | Emergency (ER) | payer MEDICAID, SELFPAY ==
[2025-02-02 18:08] VITALS: BMI 25.7
[2025-02-02 18:54] VITALS: BP 166/95; PULSE 116; RESP 18; TEMP 36.5; O2SAT 98
--- NOTE | 2025-02-02 18:55 | XR_ITS ---
Examination: Left wrist 2 views Technique: AP lateral left wrist 2 views Indications: Ground-level fall today with injury to the wrist, wrist pain. Findings: No fracture or dislocation. No foreign body Impression: No fracture or dislocation
--- NOTE | 2025-02-02 18:55 | XR_ITS ---
EXAMINATION: Ankle, left 2 views Technique: Ankle AP, lateral 2 views Date and time of exam: February 02, 2025 1902 hrs. Indications: Patient fell today with injury to the ankle, ankle pain. Findings: No fracture or dislocation 3 mm plantar bony calcaneal spur. Impression: No fracture or dislocation. Lateral malleolar soft tissue swelling
--- NOTE | 2025-02-02 18:56 | EDNOTE_ITS ---
ED Fall Injury RME/HPI General Chief Complaint: Extremity Problem,Nontraumatic Stated Complaint: LEFT LEG SWELLING X 7 DAYS, HX CANCER Time Seen by Provider: 02/02/25 18:17 Arrival date/time: 02/02/25 18:07 RME / HPI RME / HPI Narrative: DR. MCFARLANE MAIN ED EVALUATION: Patient encured accidental FOOSH on the left and possibly sustained an aversion injury to the left ankle. Reports painful weight bearing. No paresthesias of extremities. No head strike, no LOC. No reported back pain. PMH: Stage 4 breast CA, HTN. SHx: Unremarkable. Social: Negative Allergies: None Related Data Previous Rx's ?Medication ?Instructions ?Recorded hydrocodone 5 mg-acetaminophen 325 1 tab PO BID PRN pa in #10 tabs 12/03/23 mg tablet ibuprofen 600 mg tablet 600 mg PO Q6H #30 tabs 12/02 diphenhydramine HCl 25 mg capsule 25 mg PO Q8H PRN all ergic symptoms 05/01/24 (Benadryl) #30 caps doxycycline hyclate 100 mg tablet 100 mg PO BID #14 ta bs 05/01/24 ibuprofen 800 mg tablet 800 mg PO TID PRN pain #30 t abs 12/13/24 hydrocodone 5 mg-acetaminophen 325 1 tab PO Q8H PRN pa in #16 tabs 02/02/25 mg tablet naproxen 250 mg tablet 250 mg PO BID PRN pain #10 t abs 02/02/25 Allergies Allergy/AdvReac Type Severity Reaction Status Date / Time walnut Allergy Severe Swelling Verified 02/02/25 18:10 of Lip/Tongue/Throat Review of Systems Review of Systems Systems Reviewed: All systems reviewed, normal except as documented Past Medical History Past Medical History CARDIAC: Positive Hypertension REPRODUCTIVE: Positive Breast Cancer ENT: Positive Blind OTHER HISTORY: Positive Chicken Pox, Cancer and Breast Cancer Family History FAMILY HISTORY: Positive Family Psychiatric Problems, Family Gastrointestinal Problems, Family Cancer and Family Surgery Surgical History SURGICAL: Positive Section Social History SUBSTANCE USE: methamphetamine ED Exam Narrative Physical exam: GEN. APPEARANCE: The patient is alert awake oriented X-3 favoring the left arm and ankle, does not look ill/toxic. Patient has good eye contact. Patient is cooperative. VITALS: All vitals were reviewed and the pulse ox is 98% on room air which is normal according to my interpretation. HEENT: Normocephalic, atraumatic. Pupils are equal and reactive. Oral mucosa is moist. Patent Nares NECK: Supple, nontender, no thyromegaly, no meningismus, no JVD, no step offs CHEST: Symmetrical, atraumatic, and with equal expansion , Nontender on palpation no deformity and no crepitus. CARDIOVASCULAR: Heart regular rhythm no murmur or gallop rub or extra beats. LUNGS: Clear to auscultation bilaterally with symmetrical chest rise. No laboring tachypnea or wheezing. No intercostal subcostal retraction. No rales and no rhonchi. ABDOMEN: Soft, flat, nontender to palpation, no guarding or rebound tenderness. There are no abnormal masses palpated. Active and normal bowel sounds. EXTREMITIES: Nontender. No edema. No cyanosis. Patient is able to move all 4 extremities well, with full ROM and good CSM. Left wrist mild tenderness diffused with no edema, + /- snuffbox, no pain with axial thumb load, mild pain with extension, flexion, and radial deviation, distal function intact. Left ankle tender edema lateral malleolus, negative valgus and verus stress deformity, negative anterior and posterior drop, distal function intact. SKIN: Warm and dry, no jaundice or rashes noted. MUSCULOSKELETAL: No lubar or midline bony tenderness. There is no CVA tenderness. Midline tenderness to lower lumbar segment, LROM due to pain. NEURO: Patient is NIELSEN x 4, Cranial nerves II through XII grossly intact. There is no focal neurologic deficits noted. GCS is 15, PNS and CARPENTER REFRIGERATOR appear grossly intact. PSYCHIATRIC: Patient is in normal mood and affect, cooperative, no SI or HI or hallucinations. Course Quality Measures none Orders Category Date Time Status XR ankle LT 2V Stat Exams 02/02/25 18:55 Completed XR lumbar spine 2-3V Stat Exams 02/02/25 19:59 Completed XR wrist LT 2V Stat Exams 02/02/25 18:55 Completed HYDROcodone*/APAP 5/325 [[place] 5/325] Med 02/02/25 18:55 Discontinued 1 tab PO X1 ONE Ibuprofen Tab [Motrin Tab] Med 02/02/25 18:55 Discontinued 600 mg PO X1 ONE Vital Signs Vital signs: Vital Signs Temperature 97.7 F 02/02/25 18:54 Pulse Rate 116 H 02/02/25 18:54 Respiratory Rate 18 02/02/25 18:54 Blood Pressure 166/95 H 02/02/25 18:54 Pulse Oximetry (%) 98 02/02/25 18:54 Oxygen Delivery Method Room Air 02/02/25 18:54 Fall MDM Narrative MDM Narrative:: Scribe Attestation: Elmira Floyd, am scribing for and in the presence of Dr. Mcfarlane. Provider Notation: Although this document has been carefully reviewed, there may still be some phonetic and other typographical errors. These errors are purely grammatical due to imperfections in the software program and should not be construed in any way to compromise the substance of the patient's medical care during this visit. Patient encured accidental FOOSH on the left and possibly sustained an aversion injury to the left ankle. Reports painful weight bearing. Please see PE findings. Patient administered PO narcotics in addition to NSAID. Right ankle, wrist, and lower back underwent x-rays. No acute fracture identified. WIll place left ankle in stirrup and recommend avoidance of weight bearing, ice and elevation as directed. Velcro wrist splint will also be added and patient will b e discharged on both Naprocin and T#3. Patient data External records reviewed:: [facility] previous records (Reviewed prior ED records from 12/18/24. Patient was seen for Dislocation of acromioclavicular joint.) Clinical information provided by:: patient Social determinants that could affect healthcare access:: substance use (Methamphetamine) Patient has the following chronic illnesses:: Breast CA, HTN How is presenting disease/condition affected by chronic disease/condition?: exacerbated by Evaluation data The following diagnostics were reviewed and interpreted by me:: radiology exam(s) Lab and/or radiology exams considered but not ordered:: None Interpretation Summary: RADIOLOGY Left Ankle X-Ray: Findings: No fracture or dislocation 3 mm plantar bony calcaneal spur. Impression: No fracture or dislocation. Lateral malleolar soft tissue swelling Left Wrist X-Ray: Findings: No fracture or dislocation. No foreign body Impression: No fracture or dislocation L-Spine X-Ray: Findings: Grade 1 anterolisthesis L4 on L5 No lumbar fracture Mild to moderate diffuse lumbar disc narrowing most prominent at L5-S1 Impression: No lumbar fracture Medications / Prescriptions Medications or Prescriptions considered but not ordered:: None Medication administrations:: Medication Administration History Discontinued Medications Hydrocodone Bitart/Acetaminophen (Hydrocodone/Apap 5/325 Tablet) 1 tab PO X1 ONE Stop: 02/02/25 18:56 Last Admin: 02/02/25 20:15 Dose: 1 tab Documented By: JOHNNIE Ibuprofen (Ibuprofen Tab 600 Mg Tablet) 600 mg PO X1 ONE Stop: 02/02/25 18:56 Last Admin: 02/02/25 20:16 Dose: 600 mg Documented By: JOHNNIE See above if any Consultations Consultation(s) initiated? (list below): No Diagnosis Fall Differential Diagnosis: syncope, dislocation of shoulder region, fracture of wrist and compression fracture Most likely diagnosis given after review of the tests above:: Second degree ankle sprain, Left wrist sprain, Lumbar contusion Admission Indicated Admission indicated?: not indicated Explain why admission is indicated or not indicated:: Patient does not meet admission criteria Admission Request Was there a request for admission?: No Disposition Plan Disposition Plan: Discharge Discharge Attestation Discharge Attestation: The patient and all family members were given an opportunity to ask questions and understood the discharge instructions. Discharge instructions specifically effects, indications for sooner follow up or return to the emergency department, and the expected course of current diagnosis. Patient condition: Stable Discharge Plan Plan Patient Disposition: HOME (Self Care) Discharge Disposition comment: Stable Prescriptions/Referrals Prescriptions/Med Rec: New hydrocodone-acetaminophen 5-325 mg tablet 1 tab PO Q8H MDD 3 tab PRN (Reason: pain) Qty: 16 0RF naproxen 250 mg tablet 250 mg PO BID PRN (Reason: pain) Qty: 10 0RF No Action hydrocodone-acetaminophen 5-325 mg tablet 1 tab PO BID MDD 10 PRN (Reason: pain) Qty: 10 0RF ibuprofen 600 mg tablet 600 mg PO Q6H Qty: 30 0RF diphenhydramine HCl [Benadryl] 25 mg capsule 25 mg PO Q8H PRN (Reason: allergic symptoms) Qty: 30 0RF doxycycline hyclate 100 mg tablet 100 mg PO BID Qty: 14 0RF ibuprofen 800 mg tablet 800 mg PO TID PRN (Reason: pain) Qty: 30 0RF Referrals: No Primary/Family,Physician [Primary Care Provider] - In 1 week Problem List Clinical Impression: Second degree ankle sprain, Left wrist sprain, Lumbar contusion Patient/Caregiver Discharge Instructions Discharge Activity: activity as tolerated Other Activity Instructions:: Ice elevation to both the left wrist and ankle. Avoid weightbearing for 5 days. Follow-up primary care doctor in 5 to 7 days return if worsening. Education Materials: Treating Ankle Sprains, Bruises (Contusions) Additional Instructions: Ice compresses to affected areas. Medication as directed. Avoid weightbearing to the left ankle for 5 days. Follow-up with primary care doctor in 5 to 7 days return if worsening. Print Language: Albanian Stand Alone Forms: [employer] Award Info., Patient Portal Info Letter
--- NOTE | 2025-02-02 19:59 | XR_ITS ---
Examination: Lumbar spine 3 views Technique one AP lateral coned lateral lower lumbar spine 3 views Date and time: February 02, 20252027 hrs. Indications: Patient fell couple days ago with injury to the lower back, lower back pain. Findings: Grade 1 anterolisthesis L4 on L5 No lumbar fracture Mild to moderate diffuse lumbar disc narrowing most prominent at L5-S1 Impression: No lumbar fracture
[2025-02-02] MEDS: HYDROcodone/APAP 5/325 TABLET 1 TAB PO (20:15)
[2025-02-02] MEDS: IBUPROFEN TAB 600 MG TABLET PO (20:16)
[2025-02-02 22:59] VITALS: RESP 16
== END 2025-02-02 23:00 | disposition home or self-care (01) ==
PROVIDERS: Emergency Provider Emergency Medicine
DX: S93.402A Sprain of unspecified ligament of left ankle, initial encounter (principal); S63.502A Unspecified sprain of left wrist, initial encounter; S30.0XXA Contusion of lower back and pelvis, initial encounter; W18.30XA Fall on same level, unspecified, initial encounter
CPT/HCPCS: 72100; 73100; 73600; 99284; A9270

== ENCOUNTER 2025-02-03 08:07 | Outpatient (RCR) | payer MEDICAID, SELFPAY ==
[2025-02-02 16:08] LABS: Basophils # (Auto) 0.0 Thou/mm3 (0.0-0.2); Basophils % (Auto) 0 % (0-2.5); Eosinophils # (Auto) 0.1 Thou/mm3 (0.0-0.5); Eosinophils % (Auto) 1 % (0-10); Hematocrit 39.2 % (36.0-46.0); Hemoglobin 13.1 g/dL (12.0-16.0); Immature Granulocytes Auto 0.05 Thou/mm3 (0.00-0.00); Lymphocytes # (Auto) 1.9 Thou/mm3 (1.0-4.8); Lymphocytes % (Auto) 20 % (10-50); Mean Corpuscular HGB Conc 33.4 g/dl (31.0-37.0); Mean Corpuscular Hemoglobin 32.0 pg (25.0-35.0); Mean Corpuscular Volume 96 fL (80-100); Monocytes # (Auto) 0.7 Thou/mm3 (0.0-0.8); Monocytes % (Auto) 8 % (0-12); Neutrophils # (Auto) 6.4 Thou/mm3 (1.8-7.7); Neutrophils % (Auto) 69 % (37-80); Nucleated Red Blood Cell # 0.00 Thou/mm3 (0.00-0.00); Nucleated Red Blood Cell % 0 /100 WBC (0); Platelet Count 264 Thou/mm3 (140-440); RDW Standard Deviation 49.6 fL (36.4-46.3); Red Blood Count 4.09 Miln/mm3 (4.00-5.20); White Blood Count 9.2 Thou/mm3 (3.6-11.0)
[2025-02-02 16:30] LABS: Alanine Aminotransferase 14 U/L (10-49); Albumin, Serum 4.0 gm/dL (3.5-5.0); Albumin/Globulin Ratio 1.6 (1.2-2.2); Alkaline Phosphatase 170 U/L (46-116); Anion Gap 9 (7-16); Aspartate Amino Transferase 16 U/L (0-34); BUN/Creatinine Ratio 15 Ratio (12-20); Bilirubin,Total 0.6 mg/dL (0.3-1.2); Blood Urea Nitrogen 12 mg/dL (9-23); Calcium 9.3 mg/dL (8.3-10.6); Calcium (Corrected) 9.3 mg/dL (8.5-10.1); Carbon Dioxide 27.0 mMol/L (20.0-31.0); Chloride 104 mMol/L (98-107); Creatinine (Component) 0.8 mg/dL (0.6-1.3); Globulin 2.5 gm/dL (2.3-3.5); Glucose 99 mg/dL (74-106); Osmolality,Calculated 279 (275-295); Potassium 4.0 mMol/L (3.4-5.1); Sodium 140 mMol/L (136-145); Total Protein 6.5 gm/dL (5.7-8.2); eGFR > 60 See Note
--- NOTE | 2025-02-08 21:36 | CTCFLWUP_ITS ---
Patient: TRICIA DAVE : 1970 Page 6 of 7 FOLLOW UP NOTE DATE OF SERVICE: 01/29/2025 NAME: TRICIA DAVE ACCOUNT: [id number] : 1970 AGE: 54 INTERVAL HISTORY: Patient is doing well since the last visit. Subjective: Chief Complaint Follow-up for breast cancer treatment.feels little tired. History of Present Illness Jolie is a female patient with stage 4 breast cancer presenting for follow-up. She reports doing well with her current treatment regimen, stating I'm doing good when asked about side effects. Patient is scheduled to see Dr. Mcfarland for possible mastectomy Objective: Physical Examination Breast: Left breast examined. No pain or tenderness noted on palpation. No masses palpable Laboratory, Imaging, and Diagnostic Test Results - PET-CT scan: Negative ONCOLOGY HISTORY: DIAGNOSIS: Stage IV moderately differentiated, left breast ER positive, DE negative, HER2/pennie 3+ IHC positive invasive ductal carcinoma, s/p ultrasound-guided biopsy (03/29/2023) Status post biopsy-proven liver metastatic disease (07/27/2023) Currently on pertuzumab, trastuzumab and docetaxel started on 08/15/2023. PET/CT scan (01/29/2024) shows significant improvement History of methamphetamine usage Right eye blindness. DATE OF DIAGNOSIS: 03/29/2023 STAGE/TNM: Stage 4 TREATMENT HISTORY: Care?Plan Start?Date Cycle Day Intent DOCETAXEL,?HERCEPTIN,?PERJETA,?CARBO 05/23/2023 1 21 Induction-Primary Pertuzumab,?Trastuzumab?and?Docetaxel 08/14/2023 1 21 Palliative?(other) Pertuzumab,?Trastuzumab?and?Docetaxel?continuation 01/30/2024 1 21 Palliative Herceptin?6mg/kg;?Perjeta?300?mg 08/28/2024 1 21 Curative?(primary) herceptin?perjeta?adjuvant?for?11?cycles?after?tchp 09/04/2024 1 21 Palliative Herceptin?6mg/kg;?Perjeta?300?mg 08/25/2027 1 21 Maintenance HISTORY OF PRESENT ILLNESS: Tricia Dave is a 54-year-old ENG speaking female with 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 Ms. Dave never had screening mammograms in the past. November 2022: The patient started noticing retraction of the left nipple. Few weeks later she felt a lump in the left breast. 02/12/2023: Left breast ultrasound 03/28/2023: Bilateral diagnostic digital mammogram? 03/29/2023: Ms. Dave had left breast 10:00 nodule, 11:00 nodule as well as left axillary lymph node ultrasound-guided biopsy. 05/15/2023: Echocardiogram showed an ejection fraction of 60 to 65%. 05/25/2023: PET/CT scan 05/31/2023: Bilateral breast MRI with and without contrast 07/17/2023: CT scan of the chest with IV contrast 07/27/2023: CT-guided biopsy of the left lobe liver lesion? 08/15/2023: Ms. Dave is started on pertuzumab, trastuzumab as well as docetaxel chemotherapy. 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 Arimidex - 1 mg 1 tab Daily 2. dexamethasone - 4 mg 4 mg Daily 3. losartan - 50 mg 1 tab Daily Medications Last Reconciled by Aiyana Anderson MD on 01/29/2025 ALLERGIES: No Known Drug Allergies REVIEW OF SYSTEMS: A complete 14-point review of systems was performed and is negative except as noted in interval history. PHYSICAL EXAMINATION: VITAL SIGNS: Temperature?97.9, B/P?162/85, Oxygen?Saturation?96% Weight?150?lbs (Change?since?01/13/25:?-5.6?lbs) PAIN: 0 - No pain ECOG Performance Status: 0 - Asymptomatic and fully active EYE: Conjunctivae is white MOUTH: Oral cavity moist . CHEST: Clear to auscultation. No wheezes or rales audible. CARDIAC: Rhythm regular, no murmurs or gallops present. ABDOMEN: Soft. No hepatomegaly. No splenomegaly. EXTREMITIES: No pedal edema or cyanosis. Breast with no masses now LABORATORY DATA: I have personally reviewed and interpreted each of the patient?s relevant lab tests, abnormal findings are below: Date 01/12/25 02/02/25 ??WHITE?BLOOD?COUNT?(Thou/mm3) 8.4 9.2 ??RED?BLOOD?COUNT?(Miln/mm3) 4.37 4.09 ??HEMOGLOBIN?(gm/dl) 13.9 13.1 ??HEMATOCRIT?(%) 40.8 39.2 ??PLATELET?COUNT?(Thou/mm3) 273 264 ??NEUTROPHILS?%,?AUTO?(%) 64 69 ??LYMPH?%,?AUTO?(%) 26 20 ??NEUTROPHILS,?AUTO?(Thou/mm3) 5.3 6.4 ??GLUCOSE,RANDOM?(mg/dL) 108?H 99 ??BLOOD?UREA?NITROGEN?(mg/dL) 11 12 ??CREATININE?(mg/dL) 0.60 0.80 ??SODIUM?(mmol/L) 140 140 ??POTASSIUM?(mmol/L) 3.8 4.0 ??CHLORIDE?(mmol/L) 102 104 ??CrCl?(CandG)?(ml/min) 104.01 78.20 ??AST/SGOT?(Unit/L) 22 16 ??ALT/SGPT?(Unit/L) 20 14 ??ALKALINE?PHOSPHATASE?(Unit/L) 152?H 170?H ??BILIRUBIN,?TOTAL?(mg/dL) 0.7 0.6 ??PROTEIN?TOTAL?(gm/dl) 7.0 6.5 ??ALBUMIN,?SERUM?(gm/dl) 4.3 4.0 ??GLOBULIN?(gm/dl) 2.7 2.5 ??ALBUMIN/GLOBULIN?RATIO 1.6 1.6 ??CALCIUM,?SERUM?(mg/dL) 10.1 9.3 ??CALCIUM?SERUM?(CORRECTED)?(mg/dL) 10.1 9.3 ASSESSMENT/PLAN: Stage IV left breast moderately differentiated ER positive DE negative HER2 3+ IHC positive invasive ductal carcinoma s/p ultrasound-guided biopsy on 03/29/2023. Left breast biopsy sample as well as left axillary biopsy sample showed invasive ductal carcinoma. Liver lesion biopsy for metastatic disease patient received TCHP chemotherapy patient is on trastuzumab pertuzumab now Plan: - Continue current cancer treatment regimen - Repeat PET-CT scan in 2 months to assess for full remission - Follow-up appointment in 2 months Echo reviewed and is stable Next echo in 3 months and continue HP ORDERS: Order # Description [id number] Cardiac ECHO RETURN TO CLINIC: I reviewed the diagnosis, prognosis, and recommended treatment/procedure options with the patient (and/or their legal underwriting sales representative), including the potential benefits, risks, side effects and alternative therapies. We also discussed the option of no treatment and the possibility of clinical trial participation, if applicable. All questions were addressed, and they demonstrated understanding. They provided informed consent to proceed with the proposed plan of care. BILLING AND COMPLIANCE: I reviewed external records from providers outside my specialty as summarized above. I spent a total of 50 minutes on this patient?s care on the day of their visit excluding time spent related to any billed procedures. This time includes time spent with the patient as well as time spent documenting in the medical record, reviewing patients records and tests, obtaining history, placing orders, communicating with other healthcare professionals, counseling the patient, family or caregiver, and/or care coordination for the diagnoses above. Electronically Signed by: {Object.Sanct_ID*PnP.NameFL@M}, {Object.Sanct_ID*PnP.Suffix@U} D: {Object.Sanct_Date} T: {Object.Sanct_Time} CC: Reynold?Riki,ALVARO PCP: Reynold Lyn Referring: Reynold Lyn This document was completed utilizing speech recognition software. Grammatical errors, random word insertions, pronoun errors, and incomplete sentences are an occasional consequence of this system due to software limitations, ambient noise, and hardware issues. Any formal questions or concerns about the content, text or information contained within the body of this dictation should be directly addressed to the provider for clarification.
== END 2025-02-17 23:59 | disposition home or self-care (01) ==
LOC: SCTC 08:07
PROVIDERS: PCP Internal Medicine; Referring Provider Internal Medicine; Visit Provider Internal Medicine Hematology & Oncology
DX: Z51.11 Encounter for antineoplastic chemotherapy (principal); C50.212 Malignant neoplasm of upper-inner quadrant of left female breast; C77.3 Secondary and unspecified malignant neoplasm of axilla and upper limb lymph nodes; C78.7 Secondary malignant neoplasm of liver and intrahepatic bile duct; Z17.0 Estrogen receptor positive status [ER+]; Z17.22 Progesterone receptor negative status; Z17.31 Human epidermal growth factor receptor 2 positive status; Z79.811 Long term (current) use of aromatase inhibitors
CPT/HCPCS: 36591; 80053; 85025; 96367; 96413; 96417; 99212; A4216; J1642; J2405; J3490; J7040; J7050; J9306; Q5117; G0463

== ENCOUNTER 2025-02-24 02:34 | Emergency (ER) | payer MEDICAID, SELFPAY ==
[2025-02-24 02:38] VITALS: BP 185/94; PULSE 93; RESP 18; TEMP 36.7; O2SAT 96; BMI 25.7
--- NOTE | 2025-02-24 02:54 | XR_ITS ---
Examination: Left forearm 2 views TECHNIQUE: AP lateral left forearm 2 views Date and time: February 24, 2025, 0301 hours FINDINGS: No fracture or dislocation. No foreign body. IMPRESSION: No acute fracture
--- NOTE | 2025-02-24 02:54 | XR_ITS ---
Examination: Humerus 2 views left Technique: Humerus, AP lateral 2 views Date and time of exam: 2024, 0253 hours INDICATIONS: Patient fell 1 month ago with injury to the left arm, left arm pain. FINDINGS: No fracture or dislocation. IMPRESSION: No fracture or dislocation.
--- NOTE | 2025-02-24 02:55 | EDNOTE_ITS ---
ED General RME/HPI General Chief complaint: General Adult/Misc Complain Stated complaint: LEFT SIDE PAIN Time Seen by Provider: 02/24/25 02:48 Arrival date/time: 02/24/25 02:34 RME / HPI RME / HPI narrative: See MDM for Dr. Sheikh's HPI Documentation. Related Data Previous Rx's ?Medication ?Instructions ?Recorded hydrocodone 5 mg-acetaminophen 325 1 tab PO BID PRN pa in #10 tabs 12/03/23 mg tablet ibuprofen 600 mg tablet 600 mg PO Q6H #30 tabs 12/02 diphenhydramine HCl 25 mg capsule 25 mg PO Q8H PRN all ergic symptoms 05/01/24 (Benadryl) #30 caps doxycycline hyclate 100 mg tablet 100 mg PO BID #14 ta bs 05/01/24 ibuprofen 800 mg tablet 800 mg PO TID PRN pain #30 t abs 12/13/24 hydrocodone 5 mg-acetaminophen 325 1 tab PO Q8H PRN pa in #16 tabs 02/02/25 mg tablet naproxen 250 mg tablet 250 mg PO BID PRN pain #10 t abs 02/02/25 Allergies Allergy/AdvReac Type Severity Reaction Status Date / Time walnut Allergy Severe Swelling Verified 02/02/25 18:10 of Lip/Tongue/Throat Review of Systems Review of Systems Systems Reviewed: All systems reviewed, normal except as documented Past Medical History Past Medical History CARDIAC: Positive Hypertension REPRODUCTIVE: Positive Breast Cancer ENT: Positive Blind OTHER HISTORY: Positive Chicken Pox, Cancer and Breast Cancer Family History FAMILY HISTORY: Positive Family Psychiatric Problems, Family Gastrointestinal Problems, Family Cancer and Family Surgery Surgical History SURGICAL: Positive Section Social History SUBSTANCE USE: methamphetamine ED Exam Narrative Physical exam: See [facility] for Dr. Sheikh's Physical Exam Documentation. Course Quality Measures none Orders Category Date Time Status Saline [Insert IV] NOW Care 02/24/25 05:[address] cervical spine wo con Stat Exams 02/24/25 02:[address] head/brain wo con Stat Exams 02/24/25 02:[address] lumbar spine wo con Stat Exams 02/24/25 02:57 Taken XR forearm LT 2V Stat Exams 02/24/25 02:54 Taken XR humerus LT MIN 2V Stat Exams 02/24/25 02:54 Taken Bilirubin,Direct Stat Lab 02/24/25 05:21 Ordered CBC Stat Lab 02/24/25 05:21 Ordered CMP [Comprehensive Metabolic Panel] Stat Lab 02/24/25 05:21 Ordered Drug Screen,Urine Stat Lab 02/24/25 02:30 Completed Magnesium Stat Lab 02/24/25 05:21 Ordered PT [Prothrombin Time with INR] Stat Lab 02/24/25 05:21 Ordered PTT [Partial Thromboplastin Time] Stat Lab 02/24/25 05:21 Ordered UA, C/S IF [Urinalysis, C/S if Indicated] Stat Lab 02/24/25 02:30 Completed ACETAMINOPHEN w/COD 300-30 [Tylenol w/Cod #3] Med 02/24/25 03:41 Discontinued 2 tab PO X1 ONE hydrALAZINE INJ [Apresoline Inj] Med 02/24/25 05:20 Discontinued 10 mg IVP X1 ONE Vital Signs Vital signs: Vital Signs Temperature 98.0 F 02/24/25 02:38 Pulse Rate 93 02/24/25 02:38 Respiratory Rate 18 02/24/25 02:38 Blood Pressure 185/94 H 02/24/25 02:38 Pulse Oximetry (%) 96 02/24/25 02:38 Oxygen Delivery Method Room Air 02/24/25 02:38 Discharge Plan Plan Patient Disposition: Xfer Acute Care Fac Service Needed for Transfer: Neurosurgery Prescriptions/Referrals Prescriptions/Med Rec: No Action hydrocodone-acetaminophen 5-325 mg tablet 1 tab PO BID MDD 10 PRN (Reason: pain) Qty: 10 0RF ibuprofen 600 mg tablet 600 mg PO Q6H Qty: 30 0RF diphenhydramine HCl [Benadryl] 25 mg capsule 25 mg PO Q8H PRN (Reason: allergic symptoms) Qty: 30 0RF doxycycline hyclate 100 mg tablet 100 mg PO BID Qty: 14 0RF ibuprofen 800 mg tablet 800 mg PO TID PRN (Reason: pain) Qty: 30 0RF hydrocodone-acetaminophen 5-325 mg tablet 1 tab PO Q8H MDD 3 tab PRN (Reason: pain) Qty: 16 0RF naproxen 250 mg tablet 250 mg PO BID PRN (Reason: pain) Qty: 10 0RF Referrals: Reynold Lyn MD [Primary Care Provider] - In 1 week Problem List Clinical Impression: Brain mass, Brain herniation Patient/Caregiver Discharge Instructions Print Language: Malagasy Stand Alone Forms: Bree Award Info., Patient Portal Info Letter MDM Narrative Sign Out note: Patient signed out to Dr. Campbell at 6 AM. Pending transfer to tertiary facility with neurosurgical capabilities for consult, and further evaluation and treatment. MDM hospital course (for use when minimal MDM required): This section includes all my notes and documentations, including HPI, PE, and ED course. Lenin Sheikh MD HPI: 54 y/o female with stage IV breast cancer here with left-sided pain and numbness, confusion, slurred speech, and inability to walk due to balance problem. Reports history of no brain imaging studies. No headache. No fever or chills. No nausea or vomiting. No other complaints. ROS: All negative except as documented in HPI. Physical Exam: General: Alert and oriented. Equivocal left facial droop. Has trouble remaining still. Eyes: Conjunctivae and lids clear. ENT: No nasal congestion. Neck: Supple. No carotid bruit. No JVD. Heart: RRR. Lungs: No respiratory distress. Good air movement. No rhonchi, wheezing, rales. Abdomen: Soft and nontender. Skin: Warm and dry. Neuro: Alert and oriented X 3. Equivocal left facial droop and slurred speech. No obvious peripheral motor deficits. Ataxia noted. I reviewed all diagnostic test results: My interpretation of the Left Humerus x-ray is: No fracture. My interpretation of the Left Forearm x-ray is: No fracture. My review of the Head/Brain CT report is: Bilateral cerebral hemisphere intra- axial masses with surrounding vasogenic edema, worrisome for metastatic disease. There is mild subfalcine herniation to the right by 4.5 mm. My review of the C-Spine CT report is: NAD. My review of the L-Spine CT report is: NAD. Blood/urine tests pending. At this point, diagnoses include: Brain masses Subfalcine herniation Treatment here by me included: Tylenol #3 X 2 Hydralazine 10 mg IV Neurosurgery transfer initiated. At 6 AM on 09/24/2024, the care of the patient was transferred to Dr. Campbell. Lenin hSeikh MD Clinical Information Provided by: patient Medical Records reviewed [facility] Meds/Rx considered, not ordered None Labs/Rad/Tests considered, not ordered None Chronic Illness/Social Conditions which may negatively complicate care or outcome(s)-explain: ETOH/drugs/substance abuse, CHF/CAD/Cardiac illness and Cancer EKG EKG not done Labs Labs: interpreted by me and see narrative above Lab(s) Interpretation(s): Complete lab tests are pending. Imaging Imaging interpretation: interpreted by me and see narrative above Imaging Interpretation(s): I reviewed all diagnostic test results: My interpretation of the Left Humerus x-ray is: No fracture. My interpretation of the Left Forearm x-ray is: No fracture. My review of the Head/Brain CT report is: Bilateral cerebral hemisphere intra- axial masses with surrounding vasogenic edema, worrisome for metastatic disease. There is mild subfalcine herniation to the right by 4.5 mm. My review of the C-Spine CT report is: NAD. My review of the L-Spine CT report is: NAD. Medication Administration(s) Medication Administration History Discontinued Medications Acetaminophen/Codeine Phosphate (Acetaminophen W/Cod 300-30 Tablet) 2 tab PO X1 ONE Stop: 02/24/25 03:42 Last Admin: 02/24/25 03:45 Dose: 2 tab Documented By: DORCAS Hydralazine HCl (Hydralazine Inj 20 Mg/Ml Vial) 10 mg IVP X1 ONE Stop: 02/24/25 05:21 Tylenol with Codeine #3 Diagnosis Differential Diagnosis ED Complaint MDM: Peripheral neuropathy, Metastatic brachial plexopathy, CVA, Osteolytic CA Diagnoses ruled out and/or further discussions: At this point, diagnoses include: Brain masses Subfalcine herniation
--- NOTE | 2025-02-24 02:56 | XR_ITS ---
Examination: CT cervical spine without contrast 2-D sagittal reconstructions 2-D coronal reconstructions 3-D reconstructions. Exam date and time: February 24, 2025, 0357 hours INDICATIONS: Patient fell 6 weeks ago with injury of the neck, neck pain radiating to left arm. CTDI:vol (mGy) 15.4 DLP: (mGycm) 310 Technique: Multiple 2 mm axial sections of the cervical spine have been obtained. The coronal and sagittal reconstructions have been obtained. 3-D reconstructions have been obtained. Low dose protocols were performed. One or more of the following dose reduction techniques were used; automated exposure control, adjustment of the mA and/or KV according to patient size, use of iterative reconstruction technique. Findings: Axial sections demonstrate intact base of the skull. C1 exhibit satisfactory relationship to the odontoid. No acute cervical vertebral body fracture seen. Alignment posterior spinous processes satisfactory. Impression: No acute cervical fracture. Probable scarring in the right upper lobe axial image 114, recommend PA and lateral chest, AP lordotic chest follow-up
--- NOTE | 2025-02-24 02:56 | XR_ITS ---
Examination: CT brain head without contrast. 2-D sagittal coronal reconstructions Date and time of exam: February 24, 2025, 0357 hours INDICATIONS: Patient fell 6 weeks ago with injury of the head, head pain weakness difficulty with balance CTDI: vol (mGy): 47 DLP: (mGycm): 977 Technique: Multiple CT axial sections of the brain have been obtained, 5 mm slice thickness. Contrast has not been administered. 2-D sagittal, coronal reconstructions have been obtained Low dose protocols were performed. One or more of the following dose reduction techniques were used; automated exposure control, adjustment of the mA and/or KV according to patient size, use of iterative reconstruction technique. Findings: Large abnormal areas of edema in both frontal parietal lobes, marked generalized cerebral edema Additional multiple areas of edema in the temporal lobe on the right 20 mm right thalamic mass impinges upon the third ventricle Ventricles are not enlarged No gross hemorrhage IMPRESSION: Markedly abnormal CT brain scan, likely multiple cerebral metastases, including 20 mm right thalamic mass Recommend brain MRI follow-up pre and postcontrast
[2025-02-24 02:57] LABS: Collection Type, Urine Clean Catch
--- NOTE | 2025-02-24 02:57 | XR_ITS ---
Examination: CT lumbar spine, without contrast. 2-D sagittal reconstructions. 2-D coronal reconstructions. 3-D reconstructions. Date and time of exam: February 24, 2025, 0400 hours INDICATIONS: Patient fell 6 weeks ago with injury to the lower back, lower back pain CTDI: vol (mGy): 25.9 DLP: (mGycm): 716 Technique: Multiple 1.25 mm axial sections of the lumbar spine without intravenous contrast have been obtained. 2-D sagittal and coronal reconstructions have been obtained. 3-D reconstructions have been obtained. Low dose protocols were performed. One or more of the following dose reduction techniques were used; automated exposure control, adjustment of the mA and/or KV according to patient size, use of iterative reconstruction technique. Findings: Moderate osteopenia. Diffuse mild lumbar disc narrowing. No lumbar fracture. No spondylolisthesis Axial images demonstrate L4-L5 2 mm central lumbar disc bulge IMPRESSION: No acute lumbar fracture
[2025-02-24 03:01] LABS: Bilirubin,Urine Negative (Negative); Blood,Urine 1+ (Negative); Clarity,Urine Clear (Clear/Hazy); Color,Urine Lt-Yellow (Lt Yel-Yel); Culture Indicated,Urine Not Indicated; Glucose, Urine Negative (Negative); Ketones,Urine Negative (Negative); Leukocyte Esterase,Urine Positive (Negative); Nitrite,Urine Negative (Negative); PH,Urine 6.0 (5.0-7.0); Protein,Urine Negative (Neg - Trace); RBC,Urine 3 /hpf (0-3); Specific Gravity,Urine 1.027 (1.001-1.035); Squamous Epithelial Cell,Urine < 1 /hpf (0-5); Urobilinogen,Urine Negative mg/dL (0.0-1.0); WBC,Urine 10 /hpf (0-5)
[2025-02-24 03:08] LABS: Amphetamine/Methamp Scrn,U Negative (Negative); Barbiturate Screen,Urine Negative (Negative); Benzodiazepines Screen,Urine Negative (Negative); Benzoylecgonine Screen, Ur Negative (Negative); Fentanyl Screen,Urine Negative (Negative); Opiate Screen,Urine Negative (Negative); THC Screen,Urine Negative (Negative)
[2025-02-24] MEDS: ACETAMINOPHEN w/COD 300-30 TABLET 2 TAB PO (03:45)
--- NOTE | 2025-02-24 04:26 | PRELIM_ITS ---
CT scan of the cervical spine without intravenous contrast (axial sections with sagittal and coronal reformats). February 24, 2025 0357 hours Clinical History: Pain radiating into left arm Comparison: None Findings: There is no fracture, traumatic subluxation or other acute osseous abnormality of the cervical spine. There is straightening of the cervical spine curvature with loss of normal cervical lordosis. There are multilevel degenerative disc changes and spondylosis of the cervical spine with multilevel foraminal stenosis. There is no prevertebral soft tissue swelling. There is atherosclerotic calcification around the right carotid bifurcation. There is scarring within the right lung apex. Impression: No acute osseous abnormality of the cervical spine. Straightening of the cervical spine may indicate muscle spasm. Degenerative change. Report Electronically Signed By: Trae Lagunas 02/24/2025 4:26:08 AM [EST]
--- NOTE | 2025-02-24 04:28 | PRELIM_ITS ---
CT scan of the lumbar spine without intravenous contrast (axial sections with sagittal and coronal reformats). February 24, 2025 0400 hours Clinical History: LBP radiating into left leg Comparison: None Findings: There is no fracture, traumatic subluxation or other acute osseous and the lumbar spine. There are multilevel degenerative disc changes and spondylosis of the lumbar spine with multilevel foraminal stenosis. There is grade 1 degenerative anterolisthesis of L4 on L5. There are degenerative change at the SI joints. The paraspinous soft tissues are unremarkable. Impression: No acute osseous abnormality of the lumbar spine. Degenerative change with multilevel foraminal stenosis. Report Electronically Signed By: Trae Lagunas 02/24/2025 4:28:03 AM [EST]
--- NOTE | 2025-02-24 04:46 | PRELIM_ITS ---
CT scan of the head without intravenous contrast (axial sections with sagittal and coronal reformats). February 24, 2025 0357 hours Clinical History: Left weakness for a month. Comparison: None. Findings: There are scattered intra-axial masses within the cerebral hemispheres bilaterally with surrounding vasogenic edema. A right thalamic mass causes mild leftward deviation of the septum pellucidum by 4.5 mm. Ventricles are not enlarged or effaced. There is no intracranial hemorrhage or extra-axial tami ection. Visualized paranasal sinuses and tympanomastoid cavities are clear. The bony calvarium is intact. Impression: Bilateral cerebral hemisphere intra-axial masses with surrounding vasogenic edema, worrisome for metastatic disease. There is mild subfalcine herniation to the right by 4.5 mm. Recommend neurosurgical consultation. If clinically feasible, recommend MRI brain pre-and post intravenous contrast for further evaluation. Discussion Details: Results verbally communicated to : Dr. Sheikh at 04:44 AM 02/24/2025 Report Electronically Signed By: Trae Lagunas 02/24/2025 4:45:31 AM [EST]
[2025-02-24 05:15] VITALS: BP 159/104; PULSE 78; RESP 18; O2SAT 99
[2025-02-24 05:39] VITALS: BP 165/96; PULSE 88
[2025-02-24] MEDS: hydrALAZINE INJ 20 MG/ML VIAL 10 MG IVP (05:39)
--- NOTE | 2025-02-24 05:54 | PC.NURSE ---
Per MD Sheikh transfer request for neuro surgery. due to brain herniation. Clinicals faxed over. CD requested from [facility].
[2025-02-24 05:56] VITALS: BP 130/78
[2025-02-24 06:06] LABS: Basophils # (Auto) 0.0 Thou/mm3 (0.0-0.2); Basophils % (Auto) 0 % (0-2.5); Eosinophils # (Auto) 0.2 Thou/mm3 (0.0-0.5); Eosinophils % (Auto) 2 % (0-10); Hematocrit 38.1 % (36.0-46.0); Hemoglobin 13.0 g/dL (12.0-16.0); Immature Granulocytes Auto 0.03 Thou/mm3 (0.00-0.00); Lymphocytes # (Auto) 2.2 Thou/mm3 (1.0-4.8); Lymphocytes % (Auto) 23 % (10-50); Mean Corpuscular HGB Conc 34.1 g/dl (31.0-37.0); Mean Corpuscular Hemoglobin 31.8 pg (25.0-35.0); Mean Corpuscular Volume 93 fL (80-100); Monocytes # (Auto) 0.7 Thou/mm3 (0.0-0.8); Monocytes % (Auto) 7 % (0-12); Neutrophils # (Auto) 6.7 Thou/mm3 (1.8-7.7); Neutrophils % (Auto) 68 % (37-80); Nucleated Red Blood Cell # 0.00 Thou/mm3 (0.00-0.00); Nucleated Red Blood Cell % 0 /100 WBC (0); Platelet Count 243 Thou/mm3 (140-440); RDW Standard Deviation 46.0 fL (36.4-46.3); Red Blood Count 4.09 Miln/mm3 (4.00-5.20); White Blood Count 9.9 Thou/mm3 (3.6-11.0)
[2025-02-24 06:18] LABS: INR 1.0 (0.9-1.3); Partial Thromboplastin Time 26.6 Seconds (22.0-36.0); Prothrombin Time 10.3 Seconds (9.0-12.2)
[2025-02-24 06:20] LABS: Alanine Aminotransferase 17 U/L (10-49); Albumin, Serum 4.4 gm/dL (3.5-5.0); Albumin/Globulin Ratio 1.6 (1.2-2.2); Alkaline Phosphatase 179 U/L (46-116); Anion Gap 8 (7-16); Aspartate Amino Transferase 16 U/L (0-34); BUN/Creatinine Ratio 27 Ratio (12-20); Bilirubin,Direct 0.1 mg/dL (0.0-0.3); Bilirubin,Total 0.5 mg/dL (0.3-1.2); Blood Urea Nitrogen 16 mg/dL (9-23); Calcium 9.4 mg/dL (8.3-10.6); Calcium (Corrected) 9.4 mg/dL (8.5-10.1); Carbon Dioxide 25.3 mMol/L (20.0-31.0); Chloride 106 mMol/L (98-107); Creatinine (Component) 0.6 mg/dL (0.6-1.3); Estimated Creatinine Clearance 102.8 mL/min (>60); Globulin 2.7 gm/dL (2.3-3.5); Glucose 107 mg/dL (74-106); Magnesium 2.1 mg/dL (1.6-2.6); Osmolality,Calculated 278 (275-295); Potassium 3.9 mMol/L (3.4-5.1); Sodium 139 mMol/L (136-145); Total Protein 7.1 gm/dL (5.7-8.2); eGFR > 60 See Note
--- NOTE | 2025-02-24 06:39 | PC.NURSE ---
[facility] accepts Ed to Ed Neuro Sx Rita. Report to be called to [phone].
[2025-02-24] MEDS: levETIRAcetam INJ 100 MG/ML VIAL 5ML 1000 MG IVP (06:49)
[2025-02-24 07:16] VITALS: BP 160/82; PULSE 115; RESP 18; TEMP 36.5; O2SAT 99
--- NOTE | 2025-02-24 07:27 | PC.NURSE ---
report called to Radha in ED for for transfer of patient
== END 2025-02-24 07:50 | disposition short-term general hospital (02) ==
PROVIDERS: Emergency Provider Emergency Medicine; PCP Internal Medicine
DX: G93.5 Compression of brain (principal); G93.89 Other specified disorders of brain; S19.9XXA Unspecified injury of neck, initial encounter; S09.90XA Unspecified injury of head, initial encounter; S39.92XA Unspecified injury of lower back, initial encounter; S49.92XA Unspecified injury of left shoulder and upper arm, initial encounter; W19.XXXA Unspecified fall, initial encounter; Z75.1 Person awaiting admission to adequate facility elsewhere
CPT/HCPCS: 36415; 70450; 72125; 72131; 73060; 73090; 80053; 80307; 81001; 82248; 83735; 85025; 85610; 85730; 96374; 96375; 99284; J0360; J1953; A9270

== ENCOUNTER 2025-03-12 10:47 | Inpatient (IN) | payer MEDICAID, SELFPAY ==
[2025-03-12] VITALS (7 sets, daily range): BP systolic 140–173; BP diastolic 70–103; PULSE 57–106; RESP 12–20; TEMP 36.6–37.4; O2SAT 94–100; BMI 25.7
--- NOTE | 2025-03-12 | XR_ITS ---
Examination: MRI of brain without intravenous contrast. MRI brain with intravenous contrast. Date and time of exam: March 12, 2025, 1702 hours INDICATIONS: Seizure episode today Technique: Multiple axial and sagittal images of the brain to been obtained. Siemens high-resolution 1.52 Dora short bore scanner utilized. Sagittal sections, T1 weighted images, TR 500, TE 14, are performed. Axial sections proton-density and T2-weighted images have been obtained. Inversion recovery axial images, TR 9260, TE 111, TR 2500. Diffusion weighted images, axial sections, TR 4800, TE 128, B value 1000. Axial sections, ADC map, TR 4800, TE 128. Axial and coronal images were also obtained post 13 cc gadolinium administered intravenously. Findings:: Enlargement of the sella turcica is not present. The optic chiasm and infundibular stalk are not remarkable. There is no localized enlargement of the medulla or kell. Fourth ventricle and cerebellar tonsils appear normal in position. No subacute area of hemorrhage density is seen. Fourth ventricle is midline. Mass in the cerebellopontine angle region is not evident. 7th and 8th nerve complexes exhibit symmetry Globes are symmetrical Orbital musculature including medial lateral rectus muscles do not exhibit abnormality Increased white matter signal is prominent multiple areas of abnormal edema Effacement of the cortical sulcal markings is not identified. Mass effect upon the ventricular system is not identified. Diffusion-weighted images demonstrate mild restricted diffusion in the basal ganglia Contrast images demonstrate 34 mm enhancing left cerebellar lesion,. 17 mm enhancing lesion left temporal lobe tip 11 mm enhancing lesion posterior right temporal lobe 26 mm enhancing lesion right basal ganglia displacing the third ventricle to the left 5 mm 23 mm 28 mm posterior right temporal lobe enhancing lesions 15 mm left frontal lobe enhancing lesion 12 mm 18 mm enhancing posterior left parietal lesions Multiple additional bilateral parietal lobe lesions, the largest on the left side 29 mm No tonsillar herniation Impression: Multiple cerebral and left cerebellar enhancing lesions most consistent with metastatic disease
--- NOTE | 2025-03-12 11:26 | EKG_ITS ---
[facility] Test Date: 2025-03-12 Pat Name: TORI CHEATHAM Department: Room: - Gender: Female [employer]: : 1970 Requested By: Rohit Miller Order Number: [id number] Reading MD: Rohit Miller Measurements Intervals [place] Rate: 81 P: 18 DC: 123 QRS: 15 QRSD: 92 T: 60 QT: 339 QTc: 395 Interpretive Statements SINUS RHYTHM Compared to ECG 01/09/2024 10:54:13 Sinus tachycardia no longer present /store/S0/[id number]
--- NOTE | 2025-03-12 11:27 | EDNOTE_ITS ---
ED Seizures RME/HPI General Chief Complaint: Seizure Stated Complaint: SEIZURE Time Seen by Provider: 03/12/25 11:26 Arrival date/time: 03/12/25 10:47 Limitations: no limitations RME / HPI RME / HPI Narrative: 54 year old female with history of seizures, hypertension, and stage IV left breast cancer presents to the ED BIBA from home for evaluation following a seizure today. Per medics report, the daughter found patient at ~ 10:15 AM to be unresponsive to voice and shortly after vomiting. On their arrival, patient was awake and able to answer questions. Prehospital BP 160/100. Daughter on scene reported the patient had yet to take her seizure medication this morning and it is believed she is compliant with medication regimen. In the ED, patient complains of headache otherwise no other associated symptoms or complaints are reported. Denies fevers, chills, chest pain, cough, shortness of breath, abdominal pain, diarrhea, or urinary symptoms. Last seizure was a long time ago . Current medications include: Keppra (500mg BID), Amlodipine, Pantoprazole, Dexamethasone. Related Data Previous Rx's ?Medication ?Instructions ?Recorded hydrocodone 5 mg-acetaminophen 325 1 tab PO BID PRN pa in #10 tabs 12/03/23 mg tablet ibuprofen 600 mg tablet 600 mg PO Q6H #30 tabs 12/02 diphenhydramine HCl 25 mg capsule 25 mg PO Q8H PRN all ergic symptoms 05/01/24 (Benadryl) #30 caps doxycycline hyclate 100 mg tablet 100 mg PO BID #14 ta bs 05/01/24 ibuprofen 800 mg tablet 800 mg PO TID PRN pain #30 t abs 12/13/24 hydrocodone 5 mg-acetaminophen 325 1 tab PO Q8H PRN pa in #16 tabs 02/02/25 mg tablet naproxen 250 mg tablet 250 mg PO BID PRN pain #10 t abs 02/02/25 hydrocodone 5 mg-acetaminophen 325 1 tab PO Q8H PRN pa in #20 tabs 03/12/25 mg tablet Allergies Allergy/AdvReac Type Severity Reaction Status Date / Time walnut Allergy Severe Swelling Verified 02/02/25 18:10 of Lip/Tongue/Throat Review of Systems Review of Systems Systems Reviewed: All systems reviewed, normal except as documented Past Medical History Past Medical History CARDIAC: Positive Hypertension REPRODUCTIVE: Positive Breast Cancer ENT: Positive Blind OTHER HISTORY: Positive Chicken Pox, Cancer and Breast Cancer Family History FAMILY HISTORY: Positive Family Psychiatric Problems, Family Gastrointestinal Problems, Family Cancer and Family Surgery Surgical History SURGICAL: Positive Section Social History SMOKING STATUS: Never smoker SUBSTANCE USE: methamphetamine ED Exam General Limitations: Present no limitations General appearance: Present alert (able to answer questions) and in no apparent distress Head Head exam: Present atraumatic, normocephalic and normal inspection Eye Eye exam: Present EOMI and other (Blind in the rigth eye) ENT ENT exam: Present normal exam, normal oropharynx and mucous membranes dry Neck Neck exam: Present normal inspection, full ROM and trachea midline Chest Chest inspection: Present normal inspection and symmetric chest wall rise Respiratory Respiratory exam: Present normal lung sounds bilaterally Cardiovascular Cardiovascular exam: Present regular rate, normal rhythm and normal heart sounds Abdominal Exam Abdominal exam: Present soft and normal bowel sounds Extremities Exam Extremities exam: Present normal inspection and full ROM Back Exam Back exam: Present normal inspection and full ROM Neurological Exam Neurological exam: Present alert, oriented X3 and CN II-XII intact Psychiatric Psychiatric exam: Present normal affect and normal mood Skin Skin exam: Present warm, dry, intact and normal color Course Quality Measures none Orders Category Date Time Status Sole Scraper NOW Care 03/12/25 11:26 Active Continuous Pulse Oximetry NOW Care 03/12/25 11:26 Completed EKG (ED ONLY) *Do not use* NOW Care 03/12/25 11:26 Completed Insert IV NOW Care 03/12/25 11:26 Active MRI Screening NOW Care 03/12/25 13:29 Active EKG (ED Only) Stat Exams 03/12/25 11:26 Draft MR head/brain wo/w con Stat Exams 03/12/25 Completed XR chest 1V portable Stat Exams 03/12/25 11:26 Completed CBC Stat Lab 03/12/25 11:50 Completed Comprehensive Metabolic Panel Stat Lab 03/12/25 11:50 Completed HCG Qualitative,Urine Stat Lab 03/12/25 16:40 Completed Prothrombin Time with INR Stat Lab 03/12/25 11:50 Completed Urinalysis Stat Lab 03/12/25 11:48 Completed Dexamethasone Inj [Decadron Inj] Med 03/12/25 14:53 Discontinued 4 mg IVP X1 ONE HYDROmorphone INJ [Dilaudid Inj] Med 03/12/25 14:53 Discontinued 0.5 mg IVP X1 ONE Hydrocortisone Sod Succ Inj [SoluCORTEF Inj] Med 03/12/25 11:26 Discontinued 100 mg IV X1 ONE Ondansetron Inj [Zofran Inj] Med 03/12/25 14:53 Discontinued 4 mg IVP X1 ONE Sodium Chloride 0.9% 1000 ml [Ns] 1,000 ml Med 03/12/25 11:26 Discontinued IV 999 mls/hr levETIRAcetam INJ [Keppra Inj] Med 03/12/25 11:26 Discontinued 1,000 mg IVP X1 ONE Vital Signs Vital signs: Vital Signs Temperature 97.9 F 03/12/25 11:34 Pulse Rate 96 03/12/25 11:34 Respiratory Rate 18 03/12/25 11:34 Blood Pressure 158/103 H 03/12/25 11:34 Pulse Oximetry (%) 100 03/12/25 11:34 Oxygen Delivery Method Nasal Cannula 03/12/25 11:34 Oxygen Flow Rate 2 03/12/25 11:34 Pulse ox is 100% on 2L nasal cannula which is adequate. Seizure MDM Narrative MDM Narrative:: IMarissa, am scribing for and in the presence of Dr. Hadyen. 1400: I spoke with both son and daughter at bedside. We discussed the results, analysis, and treatment plans. Aware that at this time the patient is pending MRI. 1430: Family are requesting the patient to be transferred to [facility] or [facility]. Asked if they would prefer I cancel the MRI and they are requesting we continue with MRI. MRI brain has resulted showing Multiple cerebral and left cerebellar enhancing lesions most consistent with metastatic disease . I attempted discussing todays results with family however they have stepped out. Patient was discharged home with instructions to continue her same medications and take the [place] prescribed for headache. Additionally advised the patient follow up with her oncologist Dr. Leavitt tomorrow for further care. Patient data External records reviewed:: [facility] previous records and EMS form Clinical information provided by:: patient and EMS Social determinants that could affect healthcare access:: none Patient has the following chronic illnesses:: seizures, hypertension, and stage IV left breast cancer How is presenting disease/condition affected by chronic disease/condition?: exacerbated by Evaluation data The following diagnostics were reviewed and interpreted by me:: lab results, radiology exam(s) and EKG tracing(s) (EKG @ 11:46 AM. NSR, rate 81, no STEMI. ) Lab and/or radiology exams considered but not ordered:: None Interpretation Summary: Ordering Physician: Rohit Hayden MD Date of Service: 03/12/25 Procedure(s): XR chest 1V portable Accession Number(s): [id number] cc: Rohit Hayden MD; Reyes Hernadez MD~ EXAMINATION: AP chest single view TECHNIQUE: AP portable upright chest single view INDICATIONS: Cough and shortness of breath today. FINDINGS: Normal heart size The lungs are clear. Right internal jugular Port-A-Cath tip satisfactory position IMPRESSION: No pneumonia or pulmonary edema Dictated By: Reyes Hernadez MD Signed By: <Electronically signed by Reyes Hernadez MD in OV> 03/12/25 1211 Ordering Physician: Rohit Hayden MD Date of Service: 03/12/25 Procedure(s): MR head/brain wo/w con Accession Number(s): [id number] cc: Rohit Hayden MD; Reyes Hernadez MD; NO PRIMARY/FAMILY,PHYSICIAN~ Examination: MRI of brain without intravenous contrast. MRI brain with intravenous contrast. Date and time of exam: March 12, 2025, 1702 hours INDICATIONS: Seizure episode today Technique: Multiple axial and sagittal images of the brain to been obtained. Siemens high-resolution 1.52 Dora short bore scanner utilized. Sagittal sections, T1 weighted images, TR 500, TE 14, are performed. Axial sections proton-density and T2-weighted images have been obtained. Inversion recovery axial images, TR 9260, TE 111, TR 2500. Diffusion weighted images, axial sections, TR 4800, TE 128, B value 1000. Axial sections, ADC map, TR 4800, TE 128. Axial and coronal images were also obtained post 13 cc gadolinium administered intravenously. Findings:: Enlargement of the sella turcica is not present. The optic chiasm and infundibular stalk are not remarkable. There is no localized enlargement of the medulla or kell. Fourth ventricle and cerebellar tonsils appear normal in position. No subacute area of hemorrhage density is seen. Fourth ventricle is midline. Mass in the cerebellopontine angle region is not evident. 7th and 8th nerve complexes exhibit symmetry Globes are symmetrical Orbital musculature including medial lateral rectus muscles do not exhibit abnormality Increased white matter signal is prominent multiple areas of abnormal edema Effacement of the cortical sulcal markings is not identified. Mass effect upon the ventricular system is not identified. Diffusion-weighted images demonstrate mild restricted diffusion in the basal ganglia Contrast images demonstrate 34 mm enhancing left cerebellar lesion,. 17 mm enhancing lesion left temporal lobe tip 11 mm enhancing lesion posterior right temporal lobe 26 mm enhancing lesion right basal ganglia displacing the third ventricle to the left 5 mm 23 mm 28 mm posterior right temporal lobe enhancing lesions 15 mm left frontal lobe enhancing lesion 12 mm 18 mm enhancing posterior left parietal lesions Multiple additional bilateral parietal lobe lesions, the largest on the left side 29 mm No tonsillar herniation Impression: Multiple cerebral and left cerebellar enhancing lesions most consistent with metastatic disease Dictated By: Reyes Hernadez MD Signed By: <Electronically signed by Reyes Hernadez MD in OV> 03/12/25 4379 Medications / Prescriptions Medications or Prescriptions considered but not ordered:: None Medication administrations:: Medication Administration History Discontinued Medications Dexamethasone Sodium Phosphate (Dexamethasone Sod Phos Inj 4 Mg/Ml Vial) 4 mg IVP X1 ONE; Protocol Stop: 03/12/25 14:54 Last Admin: 03/12/25 15:04 Dose: 4 mg Documented By: BY Hydrocortisone Sodium Succinate (Hydrocortisone Sod Succ Inj 100 Mg 2 Ml Vial) 100 mg IV X1 ONE Stop: 03/12/25 11:27 Last Admin: 03/12/25 12:01 Dose: 100 mg Documented By: BY Hydromorphone HCl (Hydromorphone Inj 2 Mg/Ml Vial) 0.5 mg IVP X1 ONE Stop: 03/12/25 14:54 Last Admin: 03/12/25 15:03 Dose: 0.5 mg Documented By: BY Sodium Chloride (Ns) 1,000 mls @ 999 mls/hr IV .Q1H1M ONE Stop: 03/12/25 12:26 Last Infusion: 03/12/25 19:12 Dose: Infused Documented By: Admin: 03/12/25 12:01 Dose: 999 mls/hr Documented By: BY Levetiracetam (Levetiracetam Inj 100 Mg/Ml Vial 5ml) 1,000 mg IVP X1 ONE Stop: 03/12/25 11:27 Last Admin: 03/12/25 12:01 Dose: 1,000 mg Documented By: BY Ondansetron HCl (Ondansetron Inj 2 Mg/Ml Inj 2 Ml) 4 mg IVP X1 ONE; Protocol Stop: 03/12/25 14:54 Last Admin: 03/12/25 15:04 Dose: 4 mg Documented By: BY See above Consultations Consultation(s) initiated? (list below): No Diagnosis Seizure Differential Diagnosis: focal seizure, generalized seizure and epileptic seizure Most likely diagnosis given after review of the tests above:: Metastatic cancer to brain Epileptic seizure Admission Indicated Admission indicated?: not indicated Admission Request Was there a request for admission?: No Disposition Plan Disposition Plan: Discharge Discharge Attestation Discharge Attestation: The patient and all family members were given an opportunity to ask questions and understood the discharge instructions. Discharge instructions specifically effects, indications for sooner follow up or return to the emergency department, and the expected course of current diagnosis. Patient condition: Stable Discharge Plan Plan Patient Disposition: HOME (Self Care) Patient condition on transfer: Stable Prescriptions/Referrals Prescriptions/Med Rec: New hydrocodone-acetaminophen 5-325 mg tablet 1 tab PO Q8H MDD 3 PRN (Reason: pain) Qty: 20 0RF No Action hydrocodone-acetaminophen 5-325 mg tablet 1 tab PO BID MDD 10 PRN (Reason: pain) Qty: 10 0RF ibuprofen 600 mg tablet 600 mg PO Q6H Qty: 30 0RF diphenhydramine HCl [Benadryl] 25 mg capsule 25 mg PO Q8H PRN (Reason: allergic symptoms) Qty: 30 0RF doxycycline hyclate 100 mg tablet 100 mg PO BID Qty: 14 0RF ibuprofen 800 mg tablet 800 mg PO TID PRN (Reason: pain) Qty: 30 0RF hydrocodone-acetaminophen 5-325 mg tablet 1 tab PO Q8H MDD 3 tab PRN (Reason: pain) Qty: 16 0RF naproxen 250 mg tablet 250 mg PO BID PRN (Reason: pain) Qty: 10 0RF Referrals: No Primary/Family,Physician [Primary Care Provider] - In 1 week Problem List Clinical Impression: Metastatic cancer to brain, Epileptic seizure Patient/Caregiver Discharge Instructions Discharge Activity: activity as tolerated Education Materials: Brain Tumor Dc, ED Seizure, Recurrent (Adult), Cancer Overview Additional Instructions: Continue your same medications, take the prescribed medication for headache as instructed. Follow up with your oncologist Dr. Leavitt tomorrow for further care. Print Language: Sami Stand Alone Forms: Bree Award Info., Patient Portal Info Letter
[2025-03-12 11:56] LABS: Collection Type, Urine Clean Catch
[2025-03-12] MEDS: SODIUM CHLORIDE 0.9% 1000 ML 1,000 ML 999 ML IV (12:01)
[2025-03-12] MEDS: HYDROCORTISONE SOD SUCC INJ 100 MG 2 ML VIAL IV (12:01)
[2025-03-12] MEDS: levETIRAcetam INJ 100 MG/ML VIAL 5ML 1000 MG IVP (12:01)
[2025-03-12 12:02] LABS: Bilirubin,Urine Negative (Negative); Blood,Urine Negative (Negative); Clarity,Urine Clear (Clear/Hazy); Color,Urine Lt-Yellow (Lt Yel-Yel); Glucose, Urine Negative (Negative); Ketones,Urine Negative (Negative); Leukocyte Esterase,Urine Negative (Negative); Nitrite,Urine Negative (Negative); PH,Urine 6.5 (5.0-7.0); Protein,Urine Trace (Neg - Trace); RBC,Urine 1 /hpf (0-3); Specific Gravity,Urine 1.027 (1.001-1.035); Squamous Epithelial Cell,Urine < 1 /hpf (0-5); Urobilinogen,Urine Negative mg/dL (0.0-1.0); WBC,Urine 2 /hpf (0-5)
[2025-03-12 12:24] LABS: Basophils # (Auto) 0.0 Thou/mm3 (0.0-0.2); Basophils % (Auto) 0 % (0-2.5); Eosinophils # (Auto) 0.0 Thou/mm3 (0.0-0.5); Eosinophils % (Auto) 0 % (0-10); Hematocrit 40.5 % (36.0-46.0); Hemoglobin 14.0 g/dL (12.0-16.0); Immature Granulocytes Auto 0.03 Thou/mm3 (0.00-0.00); Lymphocytes # (Auto) 1.2 Thou/mm3 (1.0-4.8); Lymphocytes % (Auto) 12 % (10-50); Mean Corpuscular HGB Conc 34.6 g/dl (31.0-37.0); Mean Corpuscular Hemoglobin 32.3 pg (25.0-35.0); Mean Corpuscular Volume 93 fL (80-100); Monocytes # (Auto) 0.7 Thou/mm3 (0.0-0.8); Monocytes % (Auto) 7 % (0-12); Neutrophils # (Auto) 8.1 Thou/mm3 (1.8-7.7); Neutrophils % (Auto) 80 % (37-80); Nucleated Red Blood Cell # 0.00 Thou/mm3 (0.00-0.00); Nucleated Red Blood Cell % 0 /100 WBC (0); Platelet Count 223 Thou/mm3 (140-440); RDW Standard Deviation 47.3 fL (36.4-46.3); Red Blood Count 4.34 Miln/mm3 (4.00-5.20); White Blood Count 10.1 Thou/mm3 (3.6-11.0)
[2025-03-12 12:30] LABS: INR 1.0 (0.9-1.3); Prothrombin Time 10.2 Seconds (9.0-12.2)
[2025-03-12 12:38] LABS: Alanine Aminotransferase 28 U/L (10-49); Albumin, Serum 4.5 gm/dL (3.5-5.0); Albumin/Globulin Ratio 1.9 (1.2-2.2); Alkaline Phosphatase 203 U/L (46-116); Anion Gap 13 (7-16); Aspartate Amino Transferase 19 U/L (0-34); BUN/Creatinine Ratio 22 Ratio (12-20); Bilirubin,Total 1.1 mg/dL (0.3-1.2); Blood Urea Nitrogen 11 mg/dL (9-23); Calcium 9.2 mg/dL (8.3-10.6); Calcium (Corrected) 9.2 mg/dL (8.5-10.1); Carbon Dioxide 26.1 mMol/L (20.0-31.0); Chloride 101 mMol/L (98-107); Creatinine (Component) 0.5 mg/dL (0.6-1.3); Estimated Creatinine Clearance 123.3 mL/min (>60); Globulin 2.4 gm/dL (2.3-3.5); Glucose 109 mg/dL (74-106); Osmolality,Calculated 279 (275-295); Potassium 3.9 mMol/L (3.4-5.1); Sodium 140 mMol/L (136-145); Total Protein 6.9 gm/dL (5.7-8.2); eGFR > 60 See Note
[2025-03-12] MEDS: HYDROmorphone INJ 2 MG/ML VIAL 0.5 MG IVP ×2 (15:03→22:20)
[2025-03-12] MEDS: DEXAMETHASONE SOD PHOS INJ 4 MG/ML VIAL IVP (15:04)
[2025-03-12] MEDS: ONDANSETRON INJ 2 MG/ML INJ 2 ML 4 MG IVP (15:04)
[2025-03-12 16:49] LABS: HCG Qualitative,Urine Negative
--- NOTE | 2025-03-12 20:22 | PC.NURSE ---
THIS RN AT BEDSIDE WITH PROVIDER AVILA DISCUSSING PLAN OF CARE AND RESULTS WITH FAMILY AT BEDSIDE.
--- NOTE | 2025-03-12 22:13 | EDNOTE_ITS ---
Emergency Room Addendum Addendum Narrative: I reviewed the patient's case in entirety. I had a long, approximately 1 hour, talk with the patient's daughter and son-in-law at bedside. Patient has a history of stage IV breast cancer that originally metastasized to the liver but now recently was detected to be in the brain. Patient most likely had a seizure at home today and came in with change of mental status which improved here in the emergency room. For headache pain the patient was given Dilaudid by the ER physician who originally saw the patient, Dr. Pak. I brought the patient's family members over to the computer and reviewed the findings of the MRI of the brain that was done today. They are very concerned that she is having so much headache pain. This most likely is due to increased intracerebral pressure from the multiple mets to the brain with vasogenic edema. Patient is already on Keppra 500 mg twice a day at home as well as [place] and Decadron. Patient's family feel very reluctant to take the patient home. I reviewed the clinic note by Dr. Leavitt, the patient's oncologist, from 8 days ago. I tried to get a hold of Dr. Leavitt without success. I consulted the hospitalist service and the patient will be admitted to the hospital for further treatment and evaluation. The patient will receive Decadron 10 mg IV. I also discussed extensively with the patient's family the need and possibility for hospice care.
[2025-03-12] MEDS: DEXAMETHASONE INJ 10 MG in SODIUM CHLORIDE 0.9% 100 ML 101 MG IV (22:35)
--- NOTE | 2025-03-12 22:49 | XR_ITS ---
Examination: CT brain head without contrast. 2-D sagittal coronal reconstructions Date and time of exam: March 12, 2025, 1120 hours, comparison February 24, 2025 CTDI: vol (mGy): 50.10 DLP: (mGycm): 1023 Technique: Multiple CT axial sections of the brain have been obtained, 5 mm slice thickness. Contrast has not been administered. 2-D sagittal, coronal reconstructions have been obtained Low dose protocols were performed. One or more of the following dose reduction techniques were used; automated exposure control, adjustment of the mA and/or KV according to patient size, use of iterative reconstruction technique. Findings: Again noted bilateral areas of edema surrounding cerebral metastatic lesions The edema appears more prominent in the parietal lobes on this study, again noted mass effect upon the right lateral ventricle Fourth ventricle is midline No tonsillar herniation no asymmetric temporal horn enlargement No acute hemorrhage Cranial vault intact IMPRESSION: More prominent cerebral edema about multiple cerebral and left cerebellar hemisphere metastatic lesions No tonsillar herniation
[2025-03-13] VITALS (12 sets, daily range): BP systolic 128–152; BP diastolic 75–89; PULSE 12–120; RESP 11–98; TEMP 36.6–37.2; O2SAT 97–99; BMI 25.7
--- NOTE | 2025-03-13 00:50 | ESHP_ITS ---
<Statement entered by Jamie Sorenson MD - 03/13/25 03:54> Patient was examined and case was reviewed with team including attending physician. Note reviewed, I agree with most of its contents and agree with the patient's care as documented by Dr. Benton 54 y/o female with PMHx of stage IV breast cancer with metastases to the liver and brain and seizures who presented to the ED on 03/12 with intractable diffuse pain, headache, nausea, and vomiting of 1 day onset. The daughter found the patient to be unresponsive at home so they called 911 and brought the patient here to the ER and prior to arrival she spontaneously awoke, however unknown if patient had a seizure prior to arrival. During the time my evaluation patient was responding to questions appropriately alert awake and oriented x 2 only complaining of generalized pain. She had a brain MRI done which showed Multiple cerebral and left cerebellar enhancing lesions most consistent with metastatic disease with no herniation. Patient is seen by Dr. Leavitt and the plan was to set up radiation therapy with Dr. Sheikh and possibly hospice care. However throughout the course of the night on reevaluation patient was found to have unreactive pupils and with decorticate posturing. Which prompted us to order repeat head CT which showed increased edema secondary to metastasis of the brain but with no tonsillar herniation. We consulted teleneurology who recommended transfer for neurosurgery/neuroradiology. Goals of care was done with the daughter and son-in-law stated patient to be FULL CODE at this time. We will continue with decadron and close neuro evaluation to monitor neuro status and continue to follow tele neuro reccomendations. Case discussed with my attending Dr. Dagoberto Sorenson MD PGY-2 Disclaimer: Despite multiple revisions, due to the dictation software being used, the document bellow may not be free of grammatical errors including phonetic/typographic errors. However, this does not deter from our commitment to providing health care in the patient's best interest in mind. Documentation for date of: 03/13/25 HPI History of Present Illness History of present illness: Ms. Dave is a 54 y/o female with PMH of stage breast cancer with metastases to the liver and brain and seizures who presented to the ED on 03/12 with intractable diffuse pain, headache, nausea, and vomiting x 1 day. Patient was at home this AM when she began experiencing 10/10 headache that was unresponsive to ibuprofen. Per ED note, the daughter found patient to be unresponsive to voice shortly after vomiting. Did not take seizure meds this AM, but is compliant with medications. Upon paramedics arrival, patient was able to answer all questions appropriately. BP was 160/100. Upon arrival to the hospital, patient reported continued 10/10 headache and received dilaudid IV for pain management. Denied fevers, chills, chest pain, cough, shortness of breath, abdominal pain, diarrhea, or urinary symptoms. Several hours after arrival to hospital and IV dialudid administration, patient was able to answer questions with yes or no answers but could not elaborate when asked the location of her pain. Per nurse in ED, patient was exhibiting decorticate posturing and was completely unresponsive but still protecting her airways. Patient's vitals continued to be monitored, showed RR 7-12, BP appropriate, HR 60-70s. Patient was snoring and responsive to noxious stimuli but unable to answer any questions. CT head showed increased edema 2/2 brain mets but no tonsillar herniation. Patient was diagnosed with stage IV breast cancer with metastases to the liver about 1 year ago. She was undergoing chemotherapy with Dr. Leavitt, oncology. On 02/24, imaging was done that showed metastases to the brain. Keppra and dexamethasone was started by Dr. Leavitt. Patient was seen by [facility]'s neurosurgeons who stated that no surgical intervention was appropriate at this time. At baseline, patient is GCS 15, AOx4. She lives with her and is able to perform ADLs. In the ED, imaging including brain MRI was reviewed with patient's daughter and son in law (Baron) at bedside by Dr. Tinoco. He had a lengthy conversation about prognosis and possible need for hospice/comfort care. Dr. Tinoco tried to contact Dr. Leavitt without success. At this time, patient's daughter wants to keep patient full code before she talks with her brother. DaughterRamonita: [phone] ED course: Patient able to answer all questions initially in ED, HR 81, BP 158/103, 100% on 2L. When Dr. Howard interviewed the patient she was AOx2. When I saw the patient she was responsive only to noxious stimuli, moving all extremities spontaneously, RR 10, HR 69, BP 134/82. Labs significant for alk phos 203. EKG unremarkable. CXR unremarkable. MRI brain w/ and w/o showed multiple cerebral and left cerebellar enhancing lesions c/w metastatic disease. CT head after change in mentation showed more prominent cerebral edema about multiple cerebral and left cerebellar hemisphere metastatic lesions, no tonsilar herniation. Given Keppra 1 g IV, Hydrocortisone 100 mg IV, 1L NS, dilaudid 0.5 mg IV x2, Zofran 4 mg IV, dexamethasone 4 + 10 mg IV. Consulted tele neuro, recommended keppra 750 mg BID, continue dexamethasone, avoid opioids due to respiratory depression, consult neuro-radiology and neurosurgery. PMHx: Stage IV moderately differentiated, left breast ER positive, MD negative, HER2/pennie 3+ IHC positive invasive ductal carcinoma, s/p ultrasound-guided biopsy (03/29/2023) Status post biopsy-proven liver metastatic disease (07/27/2023) Currently on pertuzumab, trastuzumab and docetaxel started on 08/15/2023. 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 Allergies: NKDA Home meds: Keppra 500 mg PO BID Dexamethasone 4 mg PO daily Amlodipine 5 mg PO daily Pantoprazole 20 mg PO daily SgHx: liver biopsy, left breast biopsy SHx: History of methamphetamine usage FHx: none reported Review of Systems Review of Systems Narrative Review of Systems: unable to assess 2/2 patient's mentation Exam Vital Signs Temp Pulse Resp BP Pulse Ox O2 Del Method O2 Flow Rate 99.3 F 106 H 16 140/82 H 99 Room Air 2 03/12/25 22:59 03/12/25 22:59 03/12/25 22:59 03/12/25 22:59 03/12/25 22:59 03/12/25 22:59 03/12/25 12:58 Narrative Exam General: No acute distress, well nourished Eye: Right eye blindness, left pupil constricted but reactive HENT: Normocephalic, atraumatic Neck: Supple, non-tender, no JVD Lungs: Clear to auscultation bilaterally, non-labored respirations, symmetric chest rise, no use of accessory muscles Heart: Normal S1 and S2, no S3 or S4 appreciated. Normal rate and rhythm, no MRG Abdomen: Soft,non-distended, no grimace to palpation Musculoskeletal: Unable to assess full ROM 2/2 AMS Skin: Skin is warm, dry, no rashes or lesions. Neurologic: GCS 8, opens eyes to sternal rub, moves all extremities spontaneously Results: Labs 03/13/25 05:14 03/13/25 05:14 Labs: Short CBC 03/12/25 Range/Units 11:50 WBC 10.1 (3.6-11.0) Thou/mm3 Hgb 14.0 (12.0-16.0) g/dL Hct 40.5 (36.0-46.0) % Plt Count 223 (140-440) Thou/mm3 BMP 03/12/25 11:50 Sodium 140 Potassium 3.9 Chloride 101 Carbon Dioxide 26.1 BUN 11 Creatinine 0.5 L Glucose 109 H Calcium 9.2 Liver Function 03/12/25 Range/Units 11:50 Total Bilirubin 1.1 (0.3-1.2) mg/dL AST 19 (0-34) U/L ALT 28 (10-49) U/L Alkaline Phosphatase 203 H (46-116) U/L Albumin 4.5 (3.5-5.0) gm/dL Urine 03/12/25 Range/Units 11:48 Urine Color Lt-Yellow (Lt Yel-Yel) Urine Clarity Clear (Clear/Hazy) Urine pH 6.5 (5.0-7.0) Ur Specific [place] 1.027 (1.001-1.035) Urine Protein Trace (Neg - Trace) Urine Glucose (UA) Negative (Negative) Quality Measures Quality Measures none Medications Home Medications and Allergies Allergies Allergy/AdvReac Type Severity Reaction Status Date / Time walnut Allergy Severe Swelling Verified 02/02/25 18:10 of Lip/Tongue/Throat Visit Medications Acetaminophen (Acetaminophen 325 Mg Tablet) 650 mg PO Q6H PRN PRN Reason: Fever >100.3 Stop: 04/12/25 00:39 Acetaminophen (Acetaminophen 325 Mg Tablet) 650 mg PO Q6H PRN PRN Reason: PAIN SCALE 1-3 (mild Stop: 04/12/25 00:39 Dexamethasone Sodium Phosphate (Dexamethasone Sod Phos Inj 4 Mg/Ml Vial) 4 mg IVP DAILY HANNAH; Protocol Stop: 04/12/25 08:59 Famotidine (Famotidine Inj 10 Mg/Ml Vial 2 Ml) 20 mg IVP DAILY HANNAH Stop: 04/12/25 08:59 Heparin Sodium (Porcine) (Heparin Sod Inj 5000 Unit/Ml Vial) 5,000 unit SC BID HANNAH Stop: 03/27/25 08:59 Levetiracetam (Levetiracetam Inj 100 Mg/Ml Vial 5ml) 500 mg IVP Q12HR HANNAH Stop: 04/12/25 08:59 Ondansetron HCl (Ondansetron Inj 2 Mg/Ml Inj 2 Ml) 4 mg IVP Q6H PRN; Protocol PRN Reason: NAUSEA OR VOMITING Stop: 04/12/25 00:39 Discontinued Medications Hydrocodone Bitart/Acetaminophen (Hydrocodone/Apap 325 Tab) 1 tab PO X1 ONE Stop: 03/12/25 21:50 Last Admin: 03/12/25 22:13 Dose: Not Given Dexamethasone Sodium Phosphate (Dexamethasone Sod Phos Inj 4 Mg/Ml Vial) 4 mg IVP X1 ONE; Protocol Stop: 03/12/25 14:54 Last Admin: 03/12/25 15:04 Dose: 4 mg Diphenhydramine HCl (Diphenhydramine Inj 50 Mg/Ml Vial) 25 mg IVP X1 ONE Stop: 03/12/25 22:50 Last Admin: 03/12/25 22:57 Dose: 25 mg Hydrocortisone Sodium Succinate (Hydrocortisone Sod Succ Inj 100 Mg 2 Ml Vial) 100 mg IV X1 ONE Stop: 03/12/25 11:27 Last Admin: 03/12/25 12:01 Dose: 100 mg Hydromorphone HCl (Hydromorphone Inj 2 Mg/Ml Vial) 0.5 mg IVP X1 ONE Stop: 03/12/25 14:54 Last Admin: 03/12/25 15:03 Dose: 0.5 mg Hydromorphone HCl (Hydromorphone Inj 2 Mg/Ml Vial) 0.5 mg IVP X1 ONE Stop: 03/12/25 22:13 Last Admin: 03/12/25 22:20 Dose: 0.5 mg Sodium Chloride (Ns) 1,000 mls @ 999 mls/hr IV .Q1H1M ONE Stop: 03/12/25 12:26 Last Infusion: 03/12/25 19:12 Dose: Infused Dexamethasone Sodium Phosphate (10 mg/ Sodium Chloride) 101 mls @ 101 mls/hr IV X1 ONE Stop: 03/12/25 22:18 Last Infusion: 03/12/25 23:35 Dose: Infused Levetiracetam (Levetiracetam Inj 100 Mg/Ml Vial 5ml) 1,000 mg IVP X1 ONE Stop: 03/12/25 11:27 Last Admin: 03/12/25 12:01 Dose: 1,000 mg Ondansetron HCl (Ondansetron Inj 2 Mg/Ml Inj 2 Ml) 4 mg IVP X1 ONE; Protocol Stop: 03/12/25 14:54 Last Admin: 03/12/25 15:04 Dose: 4 mg Assessment & Plan Plan Ms. Dave is a 54 y/o female with PMH of stage breast cancer with metastases to the liver and brain and seizures who presented to the ED on 03/12 with intractable diffuse pain, headache, nausea, and vomiting x 1 day. Developed AMS in ED. Admitted for AMS, intractable pain. #Acute encephalopathy #Intractable pain/headache #Intractable nausea and vomiting #Seizures #Stage IV left breast cancer with metastases to liver and brain Diagnosed with stage IV moderately differentiated, left breast ER positive, MD negative, HER2/pennie 3+ IHC positive invasive ductal carcinoma, s/p ultrasound- guided biopsy (03/29/2023) Status post biopsy-proven liver metastatic disease (07/27/2023) Follows with Dr. Leavitt, on chemotherapy (pertuzumab, trastuzumab and docetaxel) [place], ibuprofen for pain management at home. Keppra 500 mg PO BID at home. Dexamethasone 4 mg daily at home for intracranial edema. Recently saw neurosurgery at [facility], stated no surgical intervention appropriate at this time Pt had intractable diffuse pain, nausea, and vomiting today, possibly after seizure, with progression to AMS/responsive only to noxious stimuli, decreased respiratory rate, bradycardia, temporary decorticate posturing, and temporary left eye mydriasis after administration of dilaudid IV in ED. Imaging showed worsening intracranial edema w/o herniation. CT head 02/24/25: large abnormal areas of edema in both frontal and parietal lobes, marked generalized cerebral edema. Additional multiple areas of edema in temporal lobe on right. 20 mm right thalamic mass impinges on 3rd ventricle. c/w cerebral metastases Brain MRI 03/12/25: Multiple areas of abnormal edema. Mild restricted diffusion in basal ganglia on DWI. Enhancing lesions found in b/l cerebrum and left cerebellum, displacement of 3rd ventricle to the left [address] head 03/12/25: More prominent cerebral edema about multiple cerebral and left cerebellar hemisphere metastatic lesions, no tonsilar herniation Plan: - Consulted tele neuro, recs: - Increase home keppra 500 mg PO BID to 750 mg BID (IV) - Continue dexamethasone 4 mg daily (IV) - Consider transfer for neurosurgery and neuroradiology - Routine spot EEG - For seizures >3 minutes, give Ativan 2 mg x4 10 minutes apart (max 8 mg) - > 8mg, watch for respiratory depression and consider intubation. - If in status epilepticus, load with fosphenytoin 15 mg/kg, maintenance dose 5 mg/kg/day, followed by valproic acid 40 mg/kg, maintenance dose 40 mg/kg/day, check LFTs, followed by Keppra, 1 gram load, maximum dose 3 grams/day - If intractable- intubate and start Propofol/versed/ketamine to achieve burst suppression - Seizure precaution - Maintain euthermia, euvolemia, euglycemia - Consulted oncology (Dr. Kael Sheikh) - Consulted neurology, Dr. Dacosta - Pending ABG - neuro check q4h - vitals q2h x2 - Zofran IV PRN - Tylenol IV PRN - Avoid opioids given respiratory depression - NPO - Can transfer patient for neurosurgery and neuroradiology services if accepted by another hospital - Goals of care, reassess code status in AM #Hypertension Plan: - Amlodipine 5 mg PO daily when appropriate (home med) #GERD Plan: - Pantoprazole 20 mg daily (home med) Checklist Dispo: Admit to tele for close neuro and vital checks Diet: NPO Bowel Reg: n/a VTE ppx: heparin subQ BID GI ppx: pantoprazole 20 mg IV daily Pain mgmt: Tylenol PO, IV PRN Code status: full Plan discussed with Dr. Howard and Dr. Dagoberto Benton MD PGY1 Attending Provider Attestation/Addendum After examination of the patient and review of the clinical data I feel that this patient needs admission to the hospital for further treatment/evaluation. Plan of care discussed with patient and is in agreement. I Romina Arenas MD, attest that I was physically present for johnson portions of evaluation, and examined patient, labs and imagings and plan of care were discussed with IM residents team, and I agree with the findings and plans documented above.
--- NOTE | 2025-03-13 01:25 | ESCONSULT_ITS ---
Tele Neuro Consultation Consultation Date 03/13/25 Most Recent Vital Signs Last Vital Signs Temp 98.8 F 03/13/25 00:00 Pulse 70 03/13/25 00:00 Resp 11 L 03/13/25 00:00 BP 152/85 H 03/13/25 00:00 Pulse Ox 99 03/13/25 00:00 O2 Del Method Room Air 03/13/25 00:00 O2 Flow Rate 2 03/12/25 12:58 Laboratory-Coagulation Panel PT 10.2 Seconds (9.0-12.2) 03/12/25 11:50 INR 1.0 (0.9-1.3) 03/12/25 11:50 Consultation Narrative [facility] TeleNeurology Consult Services Stat Consult Patient Name:???TORI CHEATHAM Date of :???1970 Identification Number:??? Date of Service:???03/13/2025 00:32:43 Diagnosis:?G40.909 - Nonintractable epilepsy without status epilepticus, unspecified epilepsy type (HCC) ?C71.8 - Malignant neoplasm of Overlapping lesion of brain Impression Brain metastases with cerebral edema: ddx: increased intracranial pressure vs seizure vs metabolic encephalopathy - 54-year-old woman with stage 4 breast cancer and newly discovered brain metastases presenting with intractable diffuse pain, altered mental status, and possible seizure activity. MRI today revealed metastases and surrounding edema without midline shift, mass effect, or tonsillar herniation. However, repeat CT head approximately one hour ago showed increased edema compared to CT from February 24. Patient developed altered mental status with posturing and pupillary changes, with left pupil changing from blown to pinpoint and non- reactive. Right eye is blinded. Patient became nonverbal and unable to interact, representing significant neurological deterioration from baseline GCS 15, alert and oriented times four. Given new brain metastases and clinical presentation, this represents significant neurological deterioration with concern for increased intracranial pressure. - Continue dexamethasone 4 mg daily - EEG recommended to check for subclinical seizures - Consider transfer to facility with neurosurgery and radiation oncology - Monitor neurological status closely For seizures >3 minutes, give Ativan 2 mg x4 10 minutes apart (max 8 mg) - > 8mg, watch for respiratory depression and consider intubation. If in status epilepticus, load with fosphenytoin 15 mg/kg, maintenance dose 5 mg/kg/day, followed by valproic acid 40 mg/kg, maintenance dose 40 mg/kg/day, check LFTs, followed by Keppra, 1 gram load, maximum dose 3 grams/day - per ESET trial, order of AED does not matter, each equally effective regardless of order of administration. If intractable - intubate and start Propofol/versed/ketamine to achieve burst suppression. Seizure precaution Replete any deficiencies as needed and provide appropriate supplementation recommendations. Maintain euthermia, euvolemia, euglycemia. Seizure disorder: - Patient possibly had seizure-like activity this morning prompting ambulance call, with altered mental status and nonverbal state. Currently on Keppra for seizure prophylaxis. Given new brain metastases and clinical presentation, there is concern for ongoing seizure activity. - Continue Keppra, increase from 500 mg BID to 750 mg BID - EEG recommended to check for subclinical seizures Intractable diffuse pain: - Patient presented with intractable diffuse pain in setting of stage 4 breast cancer with liver and brain metastases. Pain management was provided with Dilaudid which wore off around 8:30-9:00 PM, after which patient was able to verbalize being in pain but could not communicate much more. - Continue pain management as needed Recommendations: Our recommendations are outlined below. Metrics: Dispatch Time: 03/13/2025 00:32:43 Callback Response Time: 03/13/2025 00:34:18 Primary Provider Notified of Diagnostic Impression and Management Plan on: 03/13/2025 01:18:12 CT HEAD: I personally reviewed all the CT images that were available to me and it showed:?Extensive cerebral and left cerebellar vasogenic edema without tonsillar herniation. ImagingMRI brain w/wo contrast: Multiple cerebral and left cerebellar enhancing lesions most consistent with metastatic disease. Chief Complaint: ALOC History of Present Illness:Patient is a 54 year old Female. The patient is a 54-year-old woman with a medical history of stage 4 breast cancer with metastases to the liver and brain who presents to the ED with complaints of intractable diffuse pain and altered mental status that began with headache, followed by altered mental status approximately one hour prior to evaluation. The patient's family reported that she initially presented with headache and about an hour prior to evaluation, she became altered, stopped interacting, and exhibited some posturing. She possibly had seizure-like activity this morning, which prompted the ambulance call. She became altered and nonverbal following this episode. The patient was given 0.5 milligrams of Dilaudid for pain management, which wore off around 8:30-9:00 PM. After the medication wore off, she was able to verbalize that she was in pain but could not communicate much more and was unable to sip water. Medications: No Anticoagulant use? No Antiplatelet use Reviewed EMR for current medications Allergies:? Reviewed Allergies Unable To Obtain Due To:?Patient Is Obtunded/ Comatose Social History: Unable To Obtain Due To Patient Status :?Patient Is Obtunded/ Comatose Family History: Family History Cannot Be Obtained Because:Patient Is Obtunded/ Comatose ROS :?ROS Cannot Be Obtained Because:? Patient Is Obtunded/ Comatose Past Surgical History: Past Surgical History Cannot Be Obtained Because: Patient Is Obtunded/ Comatose There Is No Surgical History Contributory To Today?s Visit Examination: BP(152/85),?Pulse(70), Spoke with :?Dr. Mercedes Coma Exam: Ventilator:??No Responds to Voice:??Yes Orients:?No Responds to Sternal rub:??Yes Postures:?No Withdraws limb from painful stimulation:??Yes?R Arm, L Arm Pupils:??Pin point Corneal Reflexes:??Present Cough/Gag Reflexes:??Present This consult was conducted in real time using interactive audio and video technology. Patient was informed of the technology being used for this visit and agreed to proceed. Patient located in hospital and provider located at home/office setting. Patient is being evaluated for possible acute neurologic impairment and high probability of imminent or life - threatening deterioration.I spent total of 35 minutes providing care to this patient, including time for face to face visit via telemedicine, review of medical records, imaging studies and discussion of findings with providers, the patient and / or family. Dr Jemal [place] [facility] For Inpatient follow-up with [facility] physician please call [facility] at . As we are not an outpatient service for any post hospital discharge needs please contact the hospital for assistance. If you have any questions for the [facility] physicians or need to reconsult for clinical or diagnostic changes please contact us via [facility] at . Non-radiologist review of imaging performed to assist with emergent clinical decision-making. Remote physician workstations do not possess the same resolution, calibration, or diagnostic capabilities as hospital-based radiology reading stations, and formal radiologist read is necessary. Signature :Fiona Lake
[2025-03-13] MEDS: ACETAMINOPHEN IVPB 1,000 MG/100 ML VIAL 250 MG IV ×3 (02:20→17:40)
[2025-03-13 06:14] LABS: Basophils # (Auto) 0.0 Thou/mm3 (0.0-0.2); Basophils % (Auto) 0 % (0-2.5); Eosinophils # (Auto) 0.0 Thou/mm3 (0.0-0.5); Eosinophils % (Auto) 0 % (0-10); Hematocrit 39.5 % (36.0-46.0); Hemoglobin 13.8 g/dL (12.0-16.0); Immature Granulocytes Auto 0.04 Thou/mm3 (0.00-0.00); Lymphocytes # (Auto) 0.7 Thou/mm3 (1.0-4.8); Lymphocytes % (Auto) 6 % (10-50); Mean Corpuscular HGB Conc 34.9 g/dl (31.0-37.0); Mean Corpuscular Hemoglobin 32.3 pg (25.0-35.0); Mean Corpuscular Volume 93 fL (80-100); Monocytes # (Auto) 0.2 Thou/mm3 (0.0-0.8); Monocytes % (Auto) 1 % (0-12); Neutrophils # (Auto) 9.9 Thou/mm3 (1.8-7.7); Neutrophils % (Auto) 92 % (37-80); Nucleated Red Blood Cell # 0.00 Thou/mm3 (0.00-0.00); Nucleated Red Blood Cell % 0 /100 WBC (0); Platelet Count 190 Thou/mm3 (140-440); RDW Standard Deviation 46.6 fL (36.4-46.3); Red Blood Count 4.27 Miln/mm3 (4.00-5.20); White Blood Count 10.7 Thou/mm3 (3.6-11.0)
[2025-03-13 06:42] LABS: Anion Gap 12 (7-16); BUN/Creatinine Ratio 15 Ratio (12-20); Blood Urea Nitrogen 9 mg/dL (9-23); Calcium 9.4 mg/dL (8.3-10.6); Carbon Dioxide 25.7 mMol/L (20.0-31.0); Chloride 100 mMol/L (98-107); Creatinine (Component) 0.6 mg/dL (0.6-1.3); Estimated Creatinine Clearance 102.8 mL/min (>60); Glucose 150 mg/dL (74-106); Magnesium 1.9 mg/dL (1.6-2.6); Osmolality,Calculated 277 (275-295); Potassium 3.5 mMol/L (3.4-5.1); Sodium 138 mMol/L (136-145); eGFR > 60 See Note
[2025-03-13] MEDS: levETIRAcetam INJ 100 MG/ML VIAL 5ML 750 MG IVP ×2 (08:25→21:27)
[2025-03-13] MEDS: FAMOTIDINE INJ 10 MG/ML VIAL 2 ML 20 MG IVP (08:27)
[2025-03-13] MEDS: HEPARIN SOD INJ 5000 UNIT/ML VIAL SC ×2 (08:28→20:22)
[2025-03-13] MEDS: DEXAMETHASONE SOD PHOS INJ 4 MG/ML VIAL IVP ×3 (08:28→20:22)
--- NOTE | 2025-03-13 08:49 | ESCONSULT_ITS ---
HPI Data of Consult Consult date: 03/13/25 Requesting Physician: Alva Monroe DO Primary Care Provider: Physician No Primary/Family Consult Narrative Reason for consult: Brain mets History of present illness: Patient is a 54-year-old lady who was initially seen at the cancer treatment center 2 years ago for locally advanced left breast CA ER positive ND negative HER2/pennie overexpressed. PET scan 05/25/2023 revealed multiple left breast masses consistent with multicentric disease numerous left axillary and regional node involvement with hepatic mets and bone mets stage IV. Biopsy of liver 07/27/2023 mets. Has been receiving epratuzumab trastuzumab and doxycycline which was started on 08/15/2023 with PET scan 01/29/2024 showing significant improvement. Unfortunately brain mets were noted on both CT and brain MRI with multiple mets with significant edema with change in mental status. While awaiting for referral for brain radiation patient was admitted on 03/13/2025 with being lethargic and nonresponsive. Patient was placed on Decadron. Any attempt to sedate her or give opioids caused respiratory depression. Brain MRI 03/12/2025 revealed multiple cerebral and left cerebral enhancing lesions but no tonsillar herniation. Patient seen by neurology felt the paper she had may be having a seizure and receiving IV Keppra. Referred for urgent radiation therapy. cc:: cc: Alva Monroe DO Past Medical History Social History SOCIAL: History of meth usage Past Medical History Comments PMH COMMENT: Stage IV cancer since 2022, receiving chemo at [facility]. Hypertension right eye blindness. Meds Home Medications and Allergies Allergies Allergy/AdvReac Type Severity Reaction Status Date / Time walnut Allergy Severe Swelling Verified 02/02/25 18:10 of Lip/Tongue/Throat Exam Vital Signs Temp Pulse Resp BP Pulse Ox O2 Del Method O2 Flow Rate 98.4 F 88 18 136/80 H 98 Room Air 2 03/13/25 08:00 03/13/25 08:28 03/13/25 08:00 03/13/25 08:28 03/13/25 08:00 03/13/25 08:00 03/12/25 12:58 Narrative Exam Appearing lethargic and not able to follow commands well. Results Labs 03/13/25 05:14 03/13/25 05:14 Labs: Short CBC 03/12/25 03/13/25 Range/Units 11:50 05:14 WBC 10.1 10.7 (3.6-11.0) Thou/mm3 Hgb 14.0 13.8 (12.0-16.0) g/dL Hct 40.5 39.5 (36.0-46.0) % Plt Count 223 190 D (140-440) Thou/mm3 BMP 03/12/25 03/13/25 11:50 05:14 Sodium 140 138 Potassium 3.9 3.5 Chloride 101 100 Carbon Dioxide 26.1 25.7 BUN 11 9 Creatinine 0.5 L 0.6 Glucose 109 H 150 H Calcium 9.2 9.4 Liver Function 03/12/25 Range/Units 11:50 Total Bilirubin 1.1 (0.3-1.2) mg/dL AST 19 (0-34) U/L ALT 28 (10-49) U/L Alkaline Phosphatase 203 H (46-116) U/L Albumin 4.5 (3.5-5.0) gm/dL Urine 03/12/25 Range/Units 11:48 Urine Color Lt-Yellow (Lt Yel-Yel) Urine Clarity Clear (Clear/Hazy) Urine pH 6.5 (5.0-7.0) Ur Specific [place] 1.027 (1.001-1.035) Urine Protein Trace (Neg - Trace) Urine Glucose (UA) Negative (Negative) Assessment and Plan Additional Assessment & Plan Additional Plan: 1. Stage IV receptor positive HER2 positive ER positive left breast CA with liver mets bone mets since 2022 now significant brain mets. 2. Obviously guarded prognosis, but hopefully radiation therapy can alleviate recurrent seizures lethargy and prevent herniation possibility 3. Will arrange patient to come down today as an emergency radiation and as per protocol have ambulance bring her this afternoon. 4. The plan is for patient to get 3000 cGy in 10 fractions over 2-week. Due to the extensive involvement of bilateral hemispheres we will have to treat the whole brain. 5. Recommend continue with the Decadron, 4 mg Q6, and Ativan 1 mg 30 minutes before the anticipated radiation procedure of around noon.
--- NOTE | 2025-03-13 08:55 | PC.SS ---
SS received update that Oncologist wants patient to be sent across the street to our [facility] for a noon radiation treatment. Patient's treatment is to be 45 min. long. RN rider needs to be with patient. Charge nurse aware. SS set up gurney transprot for 11:30am. flower picker. [facility] set and states they cannot sit and wait. We are to contact [facility] when patient is ready to return and they will flower picker at [facility] and return patient to main hospital and room.
--- NOTE | 2025-03-13 11:11 | PC.SS ---
SS spoke to patient's daughter, Lorie, with hx: of patient. Patients daughter states patient resides with her and daughter. Patient was admitted for AMS. Patient has been dx: cancer with brain mets. Daughter states patient has been weak and uses a wheelchair. Prior to hospitalization patient was able to stand and pivot. Daughter states she provides transportation assistance to all appointments. PCP: [facility] and last appt. was . Prior to hospitalization patient did not have HH or hospice services. Family proivdes care at home. Patient was also following up at [facility] and was working with Dr. Sullivan and now with Dr. Sheikh for radiation treatment. SS received an update that Dr. Sheikh @ [facility] wanted patient at [facility] today for radiation treatment at noon. SS coordinated gurney transport with [facility]. [place] will be on standby when patient is ready to return. Daughter is aware. Patient remains full code. Pharmacy: [facility]. Alt medical decision maker: Daughter, Lorie Dave,
--- NOTE | 2025-03-13 12:33 | PD.ADDCONS ---
Addendum Consultation Addendum Date of report being addended: 03/13/25 Narrative: Attempt at treatment was unsuccessful due to her inability to lie still. I do believe that her clinical situation is improving largely because of Decadron therapy. I would keep patient on 4 mg Q6 during her stay at the hospital. On Sunday will resume her treatment either as an inpatient or out when her clinical condition has improved. Spoke with Dr. Monroe.
--- NOTE | 2025-03-13 12:40 | ESPR_ITS ---
Documentation for date of: 03/13/25 Senior resident attestation: Patient evaluated and examined at the bedside, plan of care discussed with rest of the team including my attending physician, except as noted. The patient is a 54-year-old female with a past medical history of stage IV breast cancer with brain, liver and bone mets, followed by cancer treatment center Dr. Rolon , previous brain imaging had shown multiple brain mets with significant edema associated with change in mental status, patient was on p.o. Decadron and [facility], patient was brought to the emergency room due to altered mental status likely in the setting of seizures. Teleneurology recommended increasing patient's antiseizure medication, Keppra to 750 mg twice daily, IV dexamethasone and possible transfer for neurosurgical evaluation. Dr. Sheikh radiation oncologist was consulted and saw the patient and planned emergent radiation therapy for symptomatic improvement, recommended IV Decadron 4 mg every 6 hours, neurology was consulted Dr Dacosta agreed with continued IV steroids and IV Keppra. On 4L to nightly later during the day, patient was unable to receive radiation therapy due to inability to sit still and follow instructions. Will continue with IV steroids at this point, radiation oncology will reassess on Sunday with possible PEG initiation of treatment either inpatient or outpatient if clinical condition is improved. Quresh PGY3 Subjective Subjective Interval history: Patient was seen and examined at bedside; no acute events overnight. As Dr. Sheikh was consulted overnight, he suggested that patient go for emergent radiation today at 12 patient and family were made aware and accepted this treatment plan. Patient was taken by ambulance to [facility]; however, she was unable to complete treatment because inability to stay still despite receiving 1 mg Ativan and 12.[address] Sheikh said that the steroids that she is on have already helped improve her mentation (she is now GCS 15, ANO x 2), therefore she will have outpatient radiation scheduled for 2 weeks outpatient. Exam Vital Signs Temp Pulse Resp BP Pulse Ox O2 Del Method O2 Flow Rate 98.4 F 85 11 L 136/80 H 98 Room Air 2 03/13/25 08:00 03/13/25 09:00 03/13/25 09:00 03/13/25 08:28 03/13/25 08:00 03/13/25 08:00 03/12/25 12:58 Narrative Exam General: A/O x2, no acute distress, well-nourished, well-developed Eyes: R eye blindness, Anicteric, vision grossly intact. Ears: No ear pain, no ear discharge, Hearing grossly intact. Nose: No nasal discharge. Mouth/Throat: Moist mucous membranes, no redness, no lesions. Neck: Neck supple, non-tender, no cervical lymphadenopathy. Lungs: Clear GENO to auscultation and percussion, No accessory muscle use. Cardio: Normal S1/S2, regular rhythm, no murmurs, no JVD or carotid bruits. Abdomen: Soft, non-tender, no palpable masses, peristalsis present, no guarding or rebound. Extremities: Symmetrical, no significant deformities, no peripheral edema , non-tender, peripheral pulses presents. Skin: No rashes, no lesions, warm to touch. Neuro: No focal neurological deficits. Psych: Cooperative, appropriate mood and effect. GCS 15. Objective Labs 03/14/25 05:00 03/14/25 05:52 Labs: Laboratory Results - last 24 hr 03/12/25 03/12/25 03/13/25 11:50 16:40 05:14 WBC 10.1 10.7 RBC 4.34 4.27 Hgb 14.0 13.8 Hct 40.5 39.5 MCV 93 93 MCH 32.3 32.3 MCHC 34.6 34.9 RDW Std Deviation 47.3 H 46.6 H Plt Count 223 190 D Neut % (Auto) 80 92 H Lymph % (Auto) 12 6 L [place] % (Auto) 7 1 Eos % (Auto) 0 0 Baso % (Auto) 0 0 Neut # (Auto) 8.1 H 9.9 H Lymph # (Auto) 1.2 0.7 L [place] # (Auto) 0.7 0.2 Eos # (Auto) 0.0 0.0 Baso # (Auto) 0.0 0.0 Immature Gran # (Auto) 0.03 H 0.04 H Absolute Nucleated RBC 0.00 0.00 Immature Gran % 0 0 Nucleated RBC % 0 0 Sodium 138 Potassium 3.5 Chloride 100 Carbon Dioxide 25.7 Anion Gap 12 BUN 9 Creatinine 0.6 Estim Creat Clear Calc 102.8 eGFR > 60 BUN/Creatinine Ratio 15 Glucose 150 H Calculated Osmolality 277 Calcium 9.4 Magnesium 1.9 Urine HCG, Qual Negative Quality Measures Quality Measures none Assessment & Plan Assessment Current Active Medications: Generic Name Dose Route Start Last Admin Trade Name Freq PRN Reason Stop Dose Admin Acetaminophen 650 mg 03/13/25 00:40 Acetaminophen 325 Mg Tablet PO 04/12/25 00:39 Q6H PRN Fever >100.3 Acetaminophen 650 mg 03/13/25 00:40 Acetaminophen 325 Mg Tablet PO 04/12/25 00:39 Q6H PRN PAIN SCALE 1-3 (mild Amlodipine Besylate 5 mg 03/13/25 09:00 03/13/25 08:28 Amlodipine Besylate 5 Mg Tablet PO 04/12/25 08:59 5 mg QDAY HANNAH Administration Dexamethasone Sodium Phosphate 4 mg 03/13/25 21:00 Dexamethasone Sod Phos Inj 4 Mg/Ml Vial IVP 04/12/25 20:59 BID HANNAH Protocol Famotidine 20 mg 03/13/25 09:00 03/13/25 08:27 Famotidine Inj 10 Mg/Ml Vial 2 Ml IVP 04/12/25 08:59 20 mg DAILY HANNAH Administration Heparin Sodium (Porcine) 5,000 unit 03/13/25 09:00 03/13/25 08:28 Heparin Sod Inj 5000 Unit/Ml Vial SC 03/27/25 08:59 5,000 unit BID HANNAH Administration Acetaminophen 1,000 mg in 100 mls @ 250 mls/hr 03/13/25 00:51 03/13/25 06:04 Ofirmev Inj IV 03/13/25 18:23 250 mls/hr Q6HR HANNAH Administration Levetiracetam 750 mg 03/13/25 09:00 03/13/25 08:25 Levetiracetam Inj 100 Mg/Ml Vial 5ml IVP 04/12/25 08:59 750 mg Q12HR HANNAH Administration Ondansetron HCl 4 mg 03/13/25 00:40 Ondansetron Inj 2 Mg/Ml Inj 2 Ml IVP 04/12/25 00:39 Q6H PRN NAUSEA OR VOMITING Protocol Plan Patient is a 54 F with PMH of stage 4 breast caner with liver and brain metastases and seizures, who presened to the ED on 03/12 with diffuse pain, headache, nausea, vomiting. She was admitted on 03/13 for encephalopathy developed in the ED. #Acute encephalopathy and #Nausea and vomiting and #?Seizures and #Chronic cerebral edema and #Intractable pain and #Stage IV left breast cancer with metastases to liver and brain Diagnosed with stage IV moderately differentiated, ER +, UT -, HER2/pennie 3+ IHC positive breast IDC, (03/29/2023) with biopsy-proven liver metastases (07/27/2023) Follows with Dr. Leavitt, on chemotherapy (pertuzumab, trastuzumab and docetaxel) [place], ibuprofen for pain management, Keppra 500 mg PO BID, Dexamethasone 4 mg at home. Recently saw neurosurgery at [facility]- no surgical intervention appropriate at this time Pt had intractable diffuse pain, nausea, and vomiting today, possibly after seizure, with progression to AMS/responsive only to noxious stimuli, decreased respiratory rate, bradycardia, temporary decorticate posturing, and temporary left eye mydriasis after administration of dilaudid IV in ED. Imaging showed worsening intracranial edema w/o herniation. CT head 02/24/25: large abnormal areas of edema in both frontal and parietal lobes, marked generalized cerebral edema. Additional multiple areas of edema in temporal lobe on right. 20 mm right thalamic mass impinges on 3rd ventricle. c/w cerebral metastases Brain MRI 03/12/25: Multiple areas of abnormal edema. Mild restricted diffusion in basal ganglia on DWI. Enhancing lesions found in b/l cerebrum and left cerebellum, displacement of 3rd ventricle to the left [address] head 03/12/25: More prominent cerebral edema about multiple cerebral and left cerebellar hemisphere metastatic lesions, no tonsilar herniation On physical exam 03/13/2020 5 in the AM, GCS is now 15, with ANO x 2 Plan: Tele neuro recommended- keppra 750 BID, dexamethasone 4 every 6 hours, potetnial transfer for neurosurgery/neuroradiology, EEG, seizure protocol and precaution Consulted oncology, thank you for recs- patient taken for emergent radiation, however unable to stay still despite 1 mg Ativan and 12.5 of Benadryl; since patient mentation has improved significantly, will schedule for 2 straight weeks of radiation outpatient Consulted neurology ABG Every 4 hours neurochecks #HTN #GERD Patient takes amlodipine 5 and pantoprazole 20 daily at home Plan: Amlodipine 5 p.o. and famotidine 20 IV started Disposition: Tele DVT prophylaxis: Neuro GI prophylaxis: Protonix Diet: Regular Lines: PIV CODE STATUS: Full code This case was discussed with my attending physician, Dr. Monroe, and senior resident, Dr. Rouse. Michael Lee MD-PhD, PGY1 Attending Provider Attestation/Addendum I, Alva Monroe, DO, attest that I was physically present for the johnson portions of the service and evaluated the patient with the resident and I reviewed and discussed the case with the resident and agree with the resident's findings and plans of care as documented above Patient seen and eval a.m. Patient is ANO x 3, but quite restless and trying to get out of bed when awake. Daughter and son-in-law are at bedside. They state that the patient is ambulatory at home and has no confusion. She has never had seizures in the past. The seizure at home was unwitnessed. She was reportedly very stiff and not responsive when found at home. Patient has been on Keppra and was referred to neurosurgeon per oncology notes, but daughter states that patient has not seen a neurosurgeon yet. Case was discussed with oncology and plans to take patient at noon for whole brain radiation. She is to continue with Decadron 4 mg every 6 hours to reduce edema. Radiation oncologist does not recommend need for any transfer at this time. She will need to weeks of whole brain radiation and continue with IV steroids. Patient was given Versed and Benadryl due to restlessness. However, patient was still unable to stay still after this set up for radiation. Will continue to monitor mental status at this time. Neurology following. Continue for IV steroids at this time. On exam, left pupil is reactive to light, right eye cataract noted. Left upper extremity is contracted. Patient is able to move rest of extremities with 4+ out of 5 strength.
--- NOTE | 2025-03-13 17:35 | RESP.EEG ---
attempted to do EEG but pt was moving around to much and didn't even want to try. will try again.
--- NOTE | 2025-03-13 19:59 | PD.RESPRO ---
Documentation for date of: 03/13/25 Subjective Subjective Interval history: Patient examined at bedside. Is somnolent but arousable. Alert and oriented x 3. Complains of generalized pain. Patient was to start radiation therapy today however unable to tolerate. At this time plan to continue dexamethasone 4 mg every 6 hours. Continue Keppra 750 mg twice daily for seizure prophylaxis. Family at bedside stated that patient has no notable history of seizures in the past. Was recently started on it for prophylactic measures. Exam Vital Signs Temp Pulse Resp BP Pulse Ox O2 Del Method O2 Flow Rate 99 F 108 H 17 128/76 97 Room Air 2 03/13/25 16:00 03/13/25 16:00 03/13/25 16:00 03/13/25 16:00 03/13/25 16:00 03/13/25 16:00 03/12/25 12:58 Narrative Exam General: A/O x2, lethargic, well-nourished, well-developed Eyes: R eye blindness, Anicteric, vision grossly intact. Ears: No ear pain, no ear discharge, Hearing grossly intact. Nose: No nasal discharge. Mouth/Throat: Moist mucous membranes, no redness, no lesions. Neck: Neck supple, non-tender, no cervical lymphadenopathy. Lungs: Clear GENO to auscultation and percussion, No accessory muscle use. Cardio: Normal S1/S2, regular rhythm, no murmurs, no JVD or carotid bruits. Abdomen: Soft, non-tender, no palpable masses, peristalsis present, no guarding or rebound. Extremities: Symmetrical, no significant deformities, no peripheral edema , non-tender, peripheral pulses presents. Skin: No rashes, no lesions, warm to touch. Neuro: No focal neurological deficits. Limited exam Psych: Cooperative, appropriate mood and effect. GCS 15. Objective Labs 03/14/25 05:00 03/14/25 05:52 Labs: Laboratory Results - last 24 hr 03/13/25 05:14 WBC 10.7 RBC 4.27 Hgb 13.8 Hct 39.5 MCV 93 MCH 32.3 MCHC 34.9 RDW Std Deviation 46.6 H Plt Count 190 D Neut % (Auto) 92 H Lymph % (Auto) 6 L [place] % (Auto) 1 Eos % (Auto) 0 Baso % (Auto) 0 Neut # (Auto) 9.9 H Lymph # (Auto) 0.7 L [place] # (Auto) 0.2 Eos # (Auto) 0.0 Baso # (Auto) 0.0 Immature Gran # (Auto) 0.04 H Absolute Nucleated RBC 0.00 Immature Gran % 0 Nucleated RBC % 0 Sodium 138 Potassium 3.5 Chloride 100 Carbon Dioxide 25.7 Anion Gap 12 BUN 9 Creatinine 0.6 Estim Creat Clear Calc 102.8 eGFR > 60 BUN/Creatinine Ratio 15 Glucose 150 H Calculated Osmolality 277 Calcium 9.4 Magnesium 1.9 Quality Measures Quality Measures none Assessment & Plan Assessment Current Active Medications: Generic Name Dose Route Start Last Admin Trade Name Freq PRN Reason Stop Dose Admin Acetaminophen 650 mg 03/13/25 00:40 Acetaminophen 325 Mg Tablet PO 04/12/25 00:39 On Hold: 03/13/25 14:17 Q6H PRN Resume: 03/13/25 23:59 Fever >100.3 Comment: iv apap active Acetaminophen 650 mg 03/13/25 00:40 Acetaminophen 325 Mg Tablet PO 04/12/25 00:39 On Hold: 03/13/25 14:17 Q6H PRN Resume: 03/13/25 23:59 PAIN SCALE 1-3 (mild Comment: iv apap active Amlodipine Besylate 5 mg 03/13/25 09:00 03/13/25 08:28 Amlodipine Besylate 5 Mg Tablet PO 04/12/25 08:59 5 mg QDAY HANNAH Administration Dexamethasone Sodium Phosphate 4 mg 03/13/25 14:15 03/13/25 14:21 Dexamethasone Sod Phos Inj 4 Mg/Ml Vial IVP 04/12/25 14:14 4 mg Q6H HANNAH Administration Protocol Famotidine 20 mg 03/13/25 09:00 03/13/25 08:27 Famotidine Inj 10 Mg/Ml Vial 2 Ml IVP 04/12/25 08:59 20 mg DAILY HANNAH Administration Heparin Sodium (Porcine) 5,000 unit 03/13/25 09:00 03/13/25 08:28 Heparin Sod Inj 5000 Unit/Ml Vial SC 03/27/25 08:59 5,000 unit BID HANNAH Administration Levetiracetam 750 mg 03/13/25 09:00 03/13/25 08:25 Levetiracetam Inj 100 Mg/Ml Vial 5ml IVP 04/12/25 08:59 750 mg Q12HR HANNAH Administration Ondansetron HCl 4 mg 03/13/25 00:40 Ondansetron Inj 2 Mg/Ml Inj 2 Ml IVP 04/12/25 00:39 Q6H PRN NAUSEA OR VOMITING Protocol Plan Patient is a 54 F with PMH of stage 4 breast caner with liver and brain metastases and seizures, who presened to the ED on 03/12 with diffuse pain, headache, nausea, vomiting. She was admitted on 03/13 for encephalopathy developed in the ED. 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 Daughter found her unresponsive at home. Patient was recently diagnosed with breast cancer and on chemotherapy. Family stated that patient was improving however about 1 month ago she started experiencing headaches. Repeat exam showed metastatic lesions in liver and brain. Since then repeat imaging of hide has shown multiplied number of lesions in the brain. Family wishes to continue full treatment and management. Dr. Sheikh was consulted who is planning on starting radiation therapy. She was to be for session however on tolerated. Diagnosed with stage IV moderately differentiated, ER +, [place] -, HER2/pennie 3+ IHC positive breast IDC, (03/29/2023) with biopsy-proven liver metastases (07/27/2023) Follows with Dr. Leavitt, on chemotherapy (pertuzumab, trastuzumab and docetaxel) [place], ibuprofen for pain management, Keppra 500 mg PO BID, Dexamethasone 4 mg at home. Recently saw neurosurgery at [facility]- no surgical intervention appropriate at this time CT head 02/24/25: large abnormal areas of edema in both frontal and parietal lobes, marked generalized cerebral edema. Additional multiple areas of edema in temporal lobe on right. 20 mm right thalamic mass impinges on 3rd ventricle. c/w cerebral metastases Brain MRI 03/12/25: Multiple areas of abnormal edema. Mild restricted diffusion in basal ganglia on DWI. Enhancing lesions found in b/l cerebrum and left cerebellum, displacement of 3rd ventricle to the left [address] head 03/12/25: More prominent cerebral edema about multiple cerebral and left cerebellar hemisphere metastatic lesions, no tonsilar herniation -Tele neuro recommended- keppra 750 BID, dexamethasone 4 every 6 hours, potetnial transfer for neurosurgery/neuroradiology, EEG, seizure protocol and precaution -Continue dexamethasone IV 4 mg every 6 hours - Continue IV Keppra 750 mg twice daily #HTN #GERD Primary care team to manage above conditions and ongoing care needs. The patient's management plan was discussed with my attending physician Dr. Dacosta. Aleah Lyn, PGY-2 Attending Provider Attestation/Addendum I virtually have seen the patient and I agreed with resident's findings, assessment and plan of care. Patient with headache, no witnessed sz Brain MRI 03/12/25: Multiple areas of abnormal edema. Mild restricted diffusion in basal ganglia on DWI. Enhancing lesions found in b/l cerebrum and left cerebellum, displacement of 3rd ventricle to the left [address] head 03/12/25: More prominent cerebral edema about multiple cerebral and left cerebellar hemisphere metastatic lesions, no tonsilar herniation Continue with keppra 750 BID, dexamethasone 4 every 6 hours, EEG, seizure protocol and precaution Fu with radiation oncology recs.
[2025-03-14] VITALS (10 sets, daily range): BP systolic 101–169; BP diastolic 66–97; PULSE 74–123; RESP 15–98; TEMP 36.1–36.9; O2SAT 95–99; BMI 25.4
[2025-03-14] MEDS: MELATONIN 3 MG TABLET PO (00:30)
[2025-03-14] MEDS: DEXAMETHASONE SOD PHOS INJ 4 MG/ML VIAL IVP ×4 (02:07→20:21)
[2025-03-14] MEDS: ACETAMINOPHEN 325 MG TABLET 650 MG PO ×3 (02:16→18:19)
[2025-03-14 06:16] LABS: Basophils # (Auto) 0.0 Thou/mm3 (0.0-0.2); Basophils % (Auto) 0 % (0-2.5); Eosinophils # (Auto) 0.0 Thou/mm3 (0.0-0.5); Eosinophils % (Auto) 0 % (0-10); Hematocrit 40.0 % (36.0-46.0); Hemoglobin 13.6 g/dL (12.0-16.0); Immature Granulocytes Auto 0.07 Thou/mm3 (0.00-0.00); Lymphocytes # (Auto) 0.6 Thou/mm3 (1.0-4.8); Lymphocytes % (Auto) 4 % (10-50); Mean Corpuscular HGB Conc 34.0 g/dl (31.0-37.0); Mean Corpuscular Hemoglobin 31.8 pg (25.0-35.0); Mean Corpuscular Volume 94 fL (80-100); Monocytes # (Auto) 0.4 Thou/mm3 (0.0-0.8); Monocytes % (Auto) 3 % (0-12); Neutrophils # (Auto) 14.8 Thou/mm3 (1.8-7.7); Neutrophils % (Auto) 93 % (37-80); Nucleated Red Blood Cell # 0.00 Thou/mm3 (0.00-0.00); Nucleated Red Blood Cell % 0 /100 WBC (0); Platelet Count 204 Thou/mm3 (140-440); RDW Standard Deviation 46.8 fL (36.4-46.3); Red Blood Count 4.28 Miln/mm3 (4.00-5.20); White Blood Count 15.9 Thou/mm3 (3.6-11.0)
[2025-03-14 06:37] LABS: Anion Gap 10 (7-16); BUN/Creatinine Ratio 25 Ratio (12-20); Blood Urea Nitrogen 15 mg/dL (9-23); Calcium 9.2 mg/dL (8.3-10.6); Carbon Dioxide 28.0 mMol/L (20.0-31.0); Chloride 102 mMol/L (98-107); Creatinine (Component) 0.6 mg/dL (0.6-1.3); Estimated Creatinine Clearance 102.1 mL/min (>60); Glucose 145 mg/dL (74-106); Magnesium 2.1 mg/dL (1.6-2.6); Osmolality,Calculated 283 (275-295); Phosphorous 2.4 mg/dL (2.4-5.1); Potassium 4.0 mMol/L (3.4-5.1); Sodium 140 mMol/L (136-145); eGFR > 60 See Note
--- NOTE | 2025-03-14 09:27 | PD.RESPRO ---
Documentation for date of: 03/14/25 Subjective Subjective Interval history: Patient seen and examined at bedside; no acute overnight events. Patient will stay over the weekend to get steroids; will have outpatient radiation therapy. Exam Vital Signs Temp Pulse Resp BP Pulse Ox O2 Del Method O2 Flow Rate 97.8 F 75 19 124/66 96 Room Air 2 03/14/25 08:00 03/14/25 08:00 03/14/25 08:00 03/14/25 08:00 03/14/25 08:00 03/14/25 08:00 03/12/25 12:58 Narrative Exam General: A/O x2, no acute distress, well-nourished, well-developed Eyes: R eye blindness, Anicteric, vision grossly intact. Ears: No ear pain, no ear discharge, Hearing grossly intact. Nose: No nasal discharge. Mouth/Throat: Moist mucous membranes, no redness, no lesions. Neck: Neck supple, non-tender, no cervical lymphadenopathy. Lungs: Clear GENO to auscultation and percussion, No accessory muscle use. Cardio: Normal S1/S2, regular rhythm, no murmurs, no JVD or carotid bruits. Abdomen: Soft, non-tender, no palpable masses, peristalsis present, no guarding or rebound. Extremities: Symmetrical, no significant deformities, no peripheral edema , non-tender, peripheral pulses presents. Skin: No rashes, no lesions, warm to touch. Neuro: No focal neurological deficits. Psych: Cooperative, appropriate mood and effect. GCS 15. Objective Labs 03/14/25 05:00 03/14/25 05:52 Labs: Laboratory Results - last 24 hr 03/14/25 03/14/25 05:00 05:52 WBC 15.9 H D RBC 4.28 Hgb 13.6 Hct 40.0 MCV 94 MCH 31.8 MCHC 34.0 RDW Std Deviation 46.8 H Plt Count 204 Neut % (Auto) 93 H Lymph % (Auto) 4 L [place] % (Auto) 3 Eos % (Auto) 0 Baso % (Auto) 0 Neut # (Auto) 14.8 H Lymph # (Auto) 0.6 L [place] # (Auto) 0.4 Eos # (Auto) 0.0 Baso # (Auto) 0.0 Immature Gran # (Auto) 0.07 H Absolute Nucleated RBC 0.00 Immature Gran % 0 Nucleated RBC % 0 Sodium 140 Potassium 4.0 D Chloride 102 Carbon Dioxide 28.0 Anion Gap 10 BUN 15 Creatinine 0.6 Estim Creat Clear Calc 102.1 eGFR > 60 BUN/Creatinine Ratio 25 H Glucose 145 H Calculated Osmolality 283 Calcium 9.2 Phosphorus 2.4 Magnesium 2.1 Quality Measures Quality Measures none Assessment & Plan Assessment Current Active Medications: Generic Name Dose Route Start Last Admin Trade Name Freq PRN Reason Stop Dose Admin Acetaminophen 650 mg 03/13/25 00:40 Acetaminophen 325 Mg Tablet PO 04/12/25 00:39 Q6H PRN Fever >100.3 Acetaminophen 650 mg 03/13/25 00:40 03/14/25 02:16 Acetaminophen 325 Mg Tablet PO 04/12/25 00:39 650 mg Q6H PRN Administration PAIN SCALE 1-3 (mild Amlodipine Besylate 5 mg 03/13/25 09:00 03/13/25 08:28 Amlodipine Besylate 5 Mg Tablet PO 04/12/25 08:59 5 mg QDAY HANNAH Administration Dexamethasone Sodium Phosphate 4 mg 03/13/25 14:15 03/14/25 02:07 Dexamethasone Sod Phos Inj 4 Mg/Ml Vial IVP 04/12/25 14:14 4 mg Q6H HANNAH Administration Protocol Famotidine 20 mg 03/13/25 09:00 03/13/25 08:27 Famotidine Inj 10 Mg/Ml Vial 2 Ml IVP 04/12/25 08:59 20 mg DAILY HANNAH Administration Heparin Sodium (Porcine) 5,000 unit 03/13/25 09:00 03/13/25 20:22 Heparin Sod Inj 5000 Unit/Ml Vial SC 03/27/25 08:59 5,000 unit BID HANNAH Administration Levetiracetam 750 mg 03/13/25 09:00 03/13/25 21:27 Levetiracetam Inj 100 Mg/Ml Vial 5ml IVP 04/12/25 08:59 750 mg Q12HR HANNAH Administration Ondansetron HCl 4 mg 03/13/25 00:40 Ondansetron Inj 2 Mg/Ml Inj 2 Ml IVP 04/12/25 00:39 Q6H PRN NAUSEA OR VOMITING Protocol Plan Patient is a 54 F with PMH of stage 4 breast caner with liver and brain metastases and seizures, who presened to the ED on 03/12 with diffuse pain, headache, nausea, vomiting. She was admitted on 03/13 for encephalopathy developed in the ED. #Acute encephalopathy and #Nausea and vomiting and #?Seizures and #Chronic cerebral edema and #Intractable pain and #Stage IV left breast cancer with metastases to liver and brain Diagnosed with stage IV moderately differentiated, ER +, [place] -, HER2/pennie 3+ IHC positive breast IDC, (03/29/2023) with biopsy-proven liver metastases (07/27/2023) Follows with Dr. Leavitt, on chemotherapy (pertuzumab, trastuzumab and docetaxel) [place], ibuprofen for pain management, Keppra 500 mg PO BID, Dexamethasone 4 mg at home. Recently saw neurosurgery at [facility]- no surgical intervention appropriate at this time Pt had intractable diffuse pain, nausea, and vomiting today, possibly after seizure, with progression to AMS/responsive only to noxious stimuli, decreased respiratory rate, bradycardia, temporary decorticate posturing, and temporary left eye mydriasis after administration of dilaudid IV in ED. Imaging showed worsening intracranial edema w/o herniation. CT head 02/24/25: large abnormal areas of edema in both frontal and parietal lobes, marked generalized cerebral edema. Additional multiple areas of edema in temporal lobe on right. 20 mm right thalamic mass impinges on 3rd ventricle. c/w cerebral metastases Brain MRI 03/12/25: Multiple areas of abnormal edema. Mild restricted diffusion in basal ganglia on DWI. Enhancing lesions found in b/l cerebrum and left cerebellum, displacement of 3rd ventricle to the left [address] head 03/12/25: More prominent cerebral edema about multiple cerebral and left cerebellar hemisphere metastatic lesions, no tonsilar herniation On physical exam 03/13/2025 in the AM, GCS is now 15, with ANO x 2 Plan: Tele neuro recommended- keppra 750 BID, dexamethasone 4 every 6 hours, potetnial transfer for neurosurgery/neuroradiology, EEG, seizure protocol and precaution Consulted oncology, thank you for recs- patient taken for emergent radiation, however unable to stay still despite 1 mg Ativan and 12.5 of Benadryl; since patient mentation has improved significantly, will schedule for 2 straight weeks of radiation outpatient Consulted neurology ABG Every 4 hours neurochecks Dec[place] 4mg IV q6h #HTN #GERD Patient takes amlodipine 5 and pantoprazole 20 daily at home Plan: Amlodipine 5 p.o. and famotidine 20 IV started Disposition: Tele DVT prophylaxis: Neuro GI prophylaxis: Protonix Diet: Regular Lines: PIV CODE STATUS: Full code This case was discussed with my attending physician, Dr. Monroe, and senior resident, Dr. Rouse. Michael Lee MD-PhD, PGY1 Attending Provider Attestation/Addendum [place], , attest that I was physically present for the johnson portions of the service and evaluated the patient with the resident and I reviewed and discussed the case with the resident and agree with the resident's findings and plans of care as documented above Patient seen and evaluated this AM. Patient is much more alert this morning and able to brush her teeth with the assistance of her mother. Mother states that the patient continues to have discomfort and restlessness, but much improved in comparison to yesterday. Patient states that the steroids have helped with her headache. She states she is very hungry and wishes for some mashed potatoes. Mother states that patient has declined significantly. She is very unsteady at baseline and requires supervision and assistance with ADLs. Will have PT work with pt and continue with IV steroids to reduce edema. Will place hydroxyzine PRN for agitation/ restlessness.
[2025-03-14] MEDS: FAMOTIDINE INJ 10 MG/ML VIAL 2 ML 20 MG IVP (10:10)
[2025-03-14] MEDS: HEPARIN SOD INJ 5000 UNIT/ML VIAL SC ×2 (10:10→20:22)
[2025-03-14] MEDS: levETIRAcetam INJ 100 MG/ML VIAL 5ML 750 MG IVP ×2 (10:11→20:47)
--- NOTE | 2025-03-14 13:45 | PD.VPROG1 ---
Telemedicine visit statement This visit was conducted with the use of interactive audio and video telecommunications system that permits real time communication between the patient and the provider. Patient's verbal consent for virtual visit was obtained on 03/14/25 at 1345. Documentation for date of: 03/14/25 Subjective Subjective Interval history: Patient is in telemetry. No new symptoms/recurrent seizures after admission. Virtual exam Vital Signs Temp Pulse Resp BP Pulse Ox O2 Del Method O2 Flow Rate 97.8 F 75 19 124/66 96 Room Air 2 03/14/25 08:00 03/14/25 10:11 03/14/25 09:00 03/14/25 10:11 03/14/25 09:00 03/14/25 08:00 03/14/25 09:00 Objective Labs 03/15/25 05:52 03/15/25 05:52 Labs: Laboratory Results - last 24 hr 03/14/25 03/14/25 05:00 05:52 WBC 15.9 H D RBC 4.28 Hgb 13.6 Hct 40.0 MCV 94 MCH 31.8 MCHC 34.0 RDW Std Deviation 46.8 H Plt Count 204 Neut % (Auto) 93 H Lymph % (Auto) 4 L [place] % (Auto) 3 Eos % (Auto) 0 Baso % (Auto) 0 Neut # (Auto) 14.8 H Lymph # (Auto) 0.6 L [place] # (Auto) 0.4 Eos # (Auto) 0.0 Baso # (Auto) 0.0 Immature Gran # (Auto) 0.07 H Absolute Nucleated RBC 0.00 Immature Gran % 0 Nucleated RBC % 0 Sodium 140 Potassium 4.0 D Chloride 102 Carbon Dioxide 28.0 Anion Gap 10 BUN 15 Creatinine 0.6 Estim Creat Clear Calc 102.1 eGFR > 60 BUN/Creatinine Ratio 25 H Glucose 145 H Calculated Osmolality 283 Calcium 9.2 Phosphorus 2.4 Magnesium 2.1 Assessment & Plan Assessment atient is a 54 F with PMH of stage 4 breast caner with liver and brain metastases and seizures, who presened to the ED on 03/12 with diffuse pain, headache, nausea, vomiting. She was admitted on 03/13 for encephalopathy developed in the ED. #Acute encephalopathy: Resolving, mental status close to baseline #Cerebral edema secondary to metastasis #Stage IV left breast cancer with metastases to liver and brain Brain MRI 03/12/25: Multiple areas of abnormal edema. Mild restricted diffusion in basal ganglia on DWI. Enhancing lesions found in b/l cerebrum and left cerebellum, displacement of 3rd ventricle to the left 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 Dr. Sheikh is on board for radiation oncology, she would need radiation treatment. Will check with him. #HTN: Continue with amlodipine #GERD: Continue with PPI
--- NOTE | 2025-03-14 14:47 | PC.NURSE ---
Family at bedside notified me that patient had recently had a rib fracture s/p fall at home and was seen at [facility].
--- NOTE | 2025-03-14 15:17 | PC.SS ---
Rounding note: Pending Dr. Sheikh recommendation on outpatient radiation or inpatient radiation. Possible d/c Sunday.
[2025-03-14] MEDS: KETOROLAC INJ 30 MG/ML VIAL 15 MG IVP (19:00)
[2025-03-14] MEDS: MELATONIN 3 MG TABLET 6 MG PO (21:47)
[2025-03-15] VITALS (9 sets, daily range): BP systolic 139–169; BP diastolic 79–98; PULSE 57–112; RESP 12–99; TEMP 36.6–37.2; O2SAT 95–98; BMI 25.4
[2025-03-15] MEDS: DEXAMETHASONE SOD PHOS INJ 4 MG/ML VIAL IVP ×4 (02:04→20:26)
[2025-03-15 06:21] LABS: Basophils # (Auto) 0.0 Thou/mm3 (0.0-0.2); Basophils % (Auto) 0 % (0-2.5); Eosinophils # (Auto) 0.0 Thou/mm3 (0.0-0.5); Eosinophils % (Auto) 0 % (0-10); Hematocrit 39.3 % (36.0-46.0); Hemoglobin 13.2 g/dL (12.0-16.0); Immature Granulocytes Auto 0.13 Thou/mm3 (0.00-0.00); Lymphocytes # (Auto) 0.8 Thou/mm3 (1.0-4.8); Lymphocytes % (Auto) 5 % (10-50); Mean Corpuscular HGB Conc 33.6 g/dl (31.0-37.0); Mean Corpuscular Hemoglobin 31.5 pg (25.0-35.0); Mean Corpuscular Volume 94 fL (80-100); Monocytes # (Auto) 0.4 Thou/mm3 (0.0-0.8); Monocytes % (Auto) 3 % (0-12); Neutrophils # (Auto) 14.1 Thou/mm3 (1.8-7.7); Neutrophils % (Auto) 91 % (37-80); Nucleated Red Blood Cell # 0.00 Thou/mm3 (0.00-0.00); Nucleated Red Blood Cell % 0 /100 WBC (0); Platelet Count 185 Thou/mm3 (140-440); RDW Standard Deviation 47.3 fL (36.4-46.3); Red Blood Count 4.19 Miln/mm3 (4.00-5.20); White Blood Count 15.5 Thou/mm3 (3.6-11.0)
[2025-03-15 06:57] LABS: Anion Gap 11 (7-16); BUN/Creatinine Ratio 22 Ratio (12-20); Blood Urea Nitrogen 13 mg/dL (9-23); Calcium 8.9 mg/dL (8.3-10.6); Carbon Dioxide 26.2 mMol/L (20.0-31.0); Chloride 104 mMol/L (98-107); Creatinine (Component) 0.6 mg/dL (0.6-1.3); Estimated Creatinine Clearance 102.1 mL/min (>60); Glucose 153 mg/dL (74-106); Magnesium 2.1 mg/dL (1.6-2.6); Osmolality,Calculated 284 (275-295); Phosphorous 2.7 mg/dL (2.4-5.1); Potassium 3.7 mMol/L (3.4-5.1); Sodium 141 mMol/L (136-145); eGFR > 60 See Note
--- NOTE | 2025-03-15 09:51 | RESP.EEG ---
Dr Monroe notified off being short staffed andd EEG not being completed during day shift 03/15. will be completed by NOC
[2025-03-15] MEDS: levETIRAcetam INJ 100 MG/ML VIAL 5ML 750 MG IVP ×2 (10:05→20:30)
[2025-03-15] MEDS: HEPARIN SOD INJ 5000 UNIT/ML VIAL SC ×2 (10:05→20:26)
[2025-03-15] MEDS: PANTOPRAZOLE 40 MG TABLET PO (10:20)
--- NOTE | 2025-03-15 11:53 | PC.NURSE ---
DR. DUMONT MADE AWARE PT PULLED OUT HER IV AND IS VERY ANXIOUS, ATARAX PO PRN GIVEN FOR AGITATION. PT STILL AGITATED. DR. DUMONT ADDED ATIVAN X1 IV. ORDER RECEIVED, READ BACK AND CARRIED OUT.
--- NOTE | 2025-03-15 14:05 | PC.NURSE ---
DR. DUMONT MADE AWARE PT VERY AGITATED AND NO FAMILY MEMBERS AT BEDSIDE. AVASURE IN ROOM. TO ORDER MEDICATION.
--- NOTE | 2025-03-15 15:55 | ESPR_ITS ---
<Statement entered by Zechariah Hernandez MD - 03/15/25 16:14> I have reviewed the note and agree with the resident's assessment & plan with exceptions as below. I have personally reviewed labs, imaging, home meds/prior records, examined the patient, formulated and discussed management plan with my attending Patient was seen and examined at bedside this morning. No acute overnight events. Patient is AO x 3 today and moving all extremities. Following all commands. Did get multiple calls due to patient being more agitated and seeing more confused therefore patient received Ativan. Still pending for physical therapy to work with the patient prior to discharge. Will discuss with patient's family disposition if they would like to take patient to home or if they will consider a [facility] facility. Zechariah Hernandez PGY2 Disclaimer: Even though this this note was dictated by speech recognition and even though it was carefully revised there may still be minor errors in sampling theory teacher due to voice recognition software. Documentation for date of: 03/15/25 Subjective Subjective Interval history: Patient seen and examined at bedside today; no acute events overnight. Patient is still getting prophylactic steroids to reduce brain swelling. Have consulted PT for patient. Exam Vital Signs Temp Pulse Resp BP Pulse Ox O2 Del Method O2 Flow Rate 98.8 F 58 L 18 139/89 H 98 Room Air 2 03/15/25 08:00 03/15/25 10:05 03/15/25 09:25 03/15/25 10:05 03/15/25 08:00 03/15/25 08:00 03/14/25 09:00 Narrative Exam General: A/O x2, no acute distress, well-nourished, well-developed Eyes: R eye blindness, Anicteric, vision grossly intact. Ears: No ear pain, no ear discharge, Hearing grossly intact. Nose: No nasal discharge. Mouth/Throat: Moist mucous membranes, no redness, no lesions. Neck: Neck supple, non-tender, no cervical lymphadenopathy. Lungs: Clear [place] to auscultation and percussion, No accessory muscle use. Cardio: Normal S1/S2, regular rhythm, no murmurs, no JVD or carotid bruits. Abdomen: Soft, non-tender, no palpable masses, peristalsis present, no guarding or rebound. Extremities: Symmetrical, no significant deformities, no peripheral edema , non-tender, peripheral pulses presents. Skin: No rashes, no lesions, warm to touch. Neuro: No focal neurological deficits. Psych: Cooperative, appropriate mood and effect. GCS 15. Objective Labs 03/15/25 05:52 03/15/25 05:52 Labs: Laboratory Results - last 24 hr 03/15/25 05:52 WBC 15.5 H RBC 4.19 Hgb 13.2 Hct 39.3 MCV 94 MCH 31.5 MCHC 33.6 RDW Std Deviation 47.3 H Plt Count 185 Neut % (Auto) 91 H Lymph % (Auto) 5 L [place] % (Auto) 3 Eos % (Auto) 0 Baso % (Auto) 0 Neut # (Auto) 14.1 H Lymph # (Auto) 0.8 L [place] # (Auto) 0.4 Eos # (Auto) 0.0 Baso # (Auto) 0.0 Immature Gran # (Auto) 0.13 H Absolute Nucleated RBC 0.00 Immature Gran % 1 H Nucleated RBC % 0 Sodium 141 Potassium 3.7 Chloride 104 Carbon Dioxide 26.2 Anion Gap 11 BUN 13 Creatinine 0.6 Estim Creat Clear Calc 102.1 eGFR > 60 BUN/Creatinine Ratio 22 H Glucose 153 H Calculated Osmolality 284 Calcium 8.9 Phosphorus 2.7 Magnesium 2.1 Quality Measures Quality Measures none Assessment & Plan Assessment Current Active Medications: Generic Name Dose Route Start Last Admin Trade Name Johnson PRN Reason Stop Dose Admin Acetaminophen 650 mg 03/13/25 00:40 Acetaminophen 325 Mg Tablet PO 04/12/25 00:39 Q6H PRN Fever >100.3 Acetaminophen 650 mg 03/13/25 00:40 03/14/25 18:19 Acetaminophen 325 Mg Tablet PO 04/12/25 00:39 650 mg Q6H PRN Administration PAIN SCALE 1-3 (mild Amlodipine Besylate 5 mg 03/13/25 09:00 03/15/25 10:05 Amlodipine Besylate 5 Mg Tablet PO 04/12/25 08:59 5 mg QDAY HANNAH Administration Dexamethasone Sodium Phosphate 4 mg 03/13/25 14:15 03/15/25 14:15 Dexamethasone Sod Phos Inj 4 Mg/Ml Vial IVP 04/12/25 14:14 4 mg Q6H HANNAH Administration Protocol Heparin Sodium (Porcine) 5,000 unit 03/13/25 09:00 03/15/25 10:05 Heparin Sod Inj 5000 Unit/Ml Vial SC 03/27/25 08:59 5,000 unit BID HANNAH Administration Hydroxyzine HCl 25 mg 03/14/25 15:05 03/15/25 10:56 Hydroxyzine Hcl 25 Mg Tablet PO 04/13/25 20:59 25 mg BID PRN Administration AGITATION (MILD) Levetiracetam 750 mg 03/13/25 09:00 03/15/25 10:05 Levetiracetam Inj 100 Mg/Ml Vial 5ml IVP 04/12/25 08:59 750 mg Q12HR HANNAH Administration Ondansetron HCl 4 mg 03/13/25 00:40 Ondansetron Inj 2 Mg/Ml Inj 2 Ml IVP 04/12/25 00:39 Q6H PRN NAUSEA OR VOMITING Protocol Pantoprazole Sodium 40 mg 03/15/25 10:00 03/15/25 10:20 Pantoprazole 40 Mg Tablet PO 04/14/25 09:59 40 mg QDAY HANNAH Administration Plan Patient is a 54 F with PMH of stage 4 breast caner with liver and brain metastases and seizures, who presened to the ED on 03/12 with diffuse pain, headache, nausea, vomiting. She was admitted on 03/13 for encephalopathy developed in the ED. 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 Leavitt, on chemotherapy (pertuzumab, trastuzumab and docetaxel) [place], ibuprofen for pain management, Keppra 500 mg PO BID, Dexamethasone 4 mg at home. Recently saw neurosurgery at [facility]- no surgical intervention appropriate at this time Pt had intractable diffuse pain, nausea, and vomiting today, possibly after seizure, with progression to AMS/responsive only to noxious stimuli, decreased respiratory rate, bradycardia, temporary decorticate posturing, and temporary left eye mydriasis after administration of dilaudid IV in ED. Imaging showed worsening intracranial edema w/o herniation. CT head 02/24/25: large abnormal areas of edema in both frontal and parietal lobes, marked generalized cerebral edema. Additional multiple areas of edema in temporal lobe on right. 20 mm right thalamic mass impinges on 3rd ventricle. c/w cerebral metastases Brain MRI 03/12/25: Multiple areas of abnormal edema. Mild restricted diffusion in basal ganglia on DWI. Enhancing lesions found in b/l cerebrum and left cerebellum, displacement of 3rd ventricle to the left 5 [address] head 03/12/25: More prominent cerebral edema about multiple cerebral and left cerebellar hemisphere metastatic lesions, no tonsilar herniation On physical exam 03/13/2025 in the AM, GCS is now 15, with ANO x 2 Plan: Tele neuro recommended- keppra 750 BID, dexamethasone 4 every 6 hours, potetnial transfer for neurosurgery/neuroradiology, EEG, seizure protocol and precaution Consulted oncology, thank you for recs- patient taken for emergent radiation, however unable to stay still despite 1 mg Ativan and 12.5 of Benadryl; since patient mentation has improved significantly, will schedule for 2 straight weeks of radiation outpatient Consulted neurology- Every 4 hours neurochecks, Decardon 4mg IV q6h Lorazepam PRN q4h for agitation PT consulted- appreciate recs Rad/Onc following. Recommends to continue with decadron 4mg IV q6h. Will need whole brain radiation for 2 weeks outpatient. #HTN #GERD Patient takes amlodipine 5 and pantoprazole 20 daily at home Plan: Amlodipine 5 p.o. and famotidine 20 IV started Disposition: Tele DVT prophylaxis: Neuro GI prophylaxis: Protonix Diet: Regular Lines: PIV CODE STATUS: Full code This case was discussed with my attending physician, Dr. Monroe, and senior resident, Dr. Quiroz. Michael Lee MD-PhD, PGY1 Attending Provider Attestation/Addendum I, Alva Monroe DO, attest that I was physically present for the johnson portions of the service and evaluated the patient with the resident and I reviewed and discussed the case with the resident and agree with the resident's findings and plans of care as documented above Patient seen and evaluated this AM. Patient is much more agitated today and tearful, requesting to go home. She remains confused secondary to brain mets and edema. Per nursing, patient has been very restless, tossing and turning. She is pending physical therapy currently as family had reported unsteadiness. No family at bedside at this time. Will place ativan 1mg PO as needed q4hr. Will speak with family regarding dispo.
--- NOTE | 2025-03-15 16:06 | PC.NURSE ---
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 DR. DUMONT MADE AWARE.
--- NOTE | 2025-03-15 22:52 | RESP.EEG ---
Pt evaluated for EEG exam at this time. Pt remains uncooperative and noncompliant to commands. EEG not attempted at this time. TANNER Branham made aware.
--- NOTE | 2025-03-15 23:12 | ESPR_ITS ---
Documentation for date of: 03/15/25 Subjective Subjective Interval history: Patient was seen in telemetry at the bedside. No new symptoms/seizures overnight. Tolerating oral diet well. Moves both upper and lower extremities well. Exam - Neurology Vital Signs Temp Pulse Resp BP Pulse Ox O2 Del Method O2 Flow Rate 98.3 F 96 19 169/96 H 95 Room Air 2 03/15/25 20:00 03/15/25 20:00 03/15/25 20:00 03/15/25 20:00 03/15/25 20:00 03/15/25 20:00 03/14/25 09:00 Narrative Exam GENERAL APPEARANCE: Well hydrated, well-nourished in no acute distress. HEENT: Normocephalic, atraumatic, extraocular movements intact. Pupils: Left reacting to light and accommodation NECK: Supple, no JVD or bruits. CARDIOVASULAR: Heart: S1, S2 heard, regular without S3-S4 or murmur no rubs or gallops. LUNGS/CHEST: Clear to auscultation bilaterally. No rails, rhonchi, or wheezing. Normal inspection. ABDOMEN: Soft, nontender, with normal bowel sounds. No pulsatile masses. No rebound, rigidity, or guarding. Normal inspection and palpation. EXTREMITIES: Normal inspection and palpation. No edema, clubbing or cyanosis. SKIN: Warm and dry without rashes. Normal inspection. MUSCULOSKELETAL: No cervical, thoracic, lumbar or midline bony tenderness. Normal inspection. NEURO: Alert, awake and oriented x3. Cranial nerves: II through XII grossly intact. Speech and language: Normal with no dysarthria or dysphasia. Motor system: Tone and bulk: Normal: Strength: 5 out of 5 in all 4 extremities; No pronator drift noted. Deep tendon reflexes: 2+ bilaterally symmetrical. Plantar reflex: Downgoing bilaterally. Sensory system: Intact to all modalities of sensation bilaterally. Coordination: Intact to [id number] and qnib-amww-rtsd test bilaterally. No ataxia, no dysmetria, or dysdiadochokinesia noted. No intention tremors noted. Gait: Not tested. No signs of meningeal irritation noted. PSYCHIATRIC: Normal mood and affect. Objective Labs 03/15/25 05:52 03/15/25 05:52 Labs: Laboratory Results - last 24 hr 03/15/25 05:52 WBC 15.5 H RBC 4.19 Hgb 13.2 Hct 39.3 MCV 94 MCH 31.5 MCHC 33.6 RDW Std Deviation 47.3 H Plt Count 185 Neut % (Auto) 91 H Lymph % (Auto) 5 L [place] % (Auto) 3 Eos % (Auto) 0 Baso % (Auto) 0 Neut # (Auto) 14.1 H Lymph # (Auto) 0.8 L [place] # (Auto) 0.4 Eos # (Auto) 0.0 Baso # (Auto) 0.0 Immature Gran # (Auto) 0.13 H Absolute Nucleated RBC 0.00 Immature Gran % 1 H Nucleated RBC % 0 Sodium 141 Potassium 3.7 Chloride 104 Carbon Dioxide 26.2 Anion Gap 11 BUN 13 Creatinine 0.6 Estim Creat Clear Calc 102.1 eGFR > 60 BUN/Creatinine Ratio 22 H Glucose 153 H Calculated Osmolality 284 Calcium 8.9 Phosphorus 2.7 Magnesium 2.1 Assessment & Plan Additional Assessment & Plan Additional Plan: Patient is a 54 F with PMH of stage 4 breast caner with liver and brain metastases and seizures, who presened to the ED on 03/12 with diffuse pain, headache, nausea, vomiting. She was admitted on 03/13 for encephalopathy developed in the ED. #Acute encephalopathy: Resolving, mental status close to baseline #Cerebral edema secondary to metastasis #Stage IV left breast cancer with metastases to liver and brain Brain MRI 03/12/25: Multiple areas of abnormal edema. Mild restricted diffusion in basal ganglia on DWI. Enhancing lesions found in b/l cerebrum and left cerebellum, displacement of 3rd ventricle to the left 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 Dr. Sheikh is on board for radiation oncology, she would need radiation treatment. Will check with him. #HTN: Continue with amlodipine #GERD: Continue with PPI
--- NOTE | 2025-03-15 23:30 | PC.NURSE ---
Called hospitalist spoke to resident Dr. Rosas, made aware pt is very restless and trying to get out of bed. 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 MD informed Ativan 1mg PO given at 2213. Per MD will place new orders.
[2025-03-16] VITALS (7 sets, daily range): BP systolic 152–192; BP diastolic 96–118; PULSE 80–110; RESP 18–24; TEMP 36.2–36.7; O2SAT 97–99; BMI 25.4; BMI 25.2
--- NOTE | 2025-03-16 00:50 | PC.NURSE ---
Called hospitalist, spoke to Dr Benton, made aware pt was given Benadryl at 2350, pt still restless and agitated. Pt still pulling off radiographer cardiac catheterization. Also made aware BP 158/111. Per MD, will put in order for Haldol.
[2025-03-16] MEDS: HALOPERIDOL LACT INJ 5 MG/ML VIAL 2 MG IV (01:09)
--- NOTE | 2025-03-16 02:24 | XR_ITS ---
Examination: CT brain head without contrast. 2-D sagittal coronal reconstructions Date and time of exam: March 16, 2025, 0310 hours INDICATIONS: Altered mental status today, history brain metastatic disease, multiple lesions on CT brain scan March 12, 2025 CTDI: vol (mGy): 48.7 DLP: (mGycm): 962 Technique: Multiple CT axial sections of the brain have been obtained, 5 mm slice thickness. Contrast has not been administered. 2-D sagittal, coronal reconstructions have been obtained Low dose protocols were performed. One or more of the following dose reduction techniques were used; automated exposure control, adjustment of the mA and/or KV according to patient size, use of iterative reconstruction technique. Findings: Again noted multiple areas of edema in the cerebral hemispheres and left cerebellar hemisphere consistent with cerebral and cerebellar metastases Frontal horns are shifted to the left 6 mm, mild subfalcine herniation Ventricles are not enlarged No acute hemorrhage Cranial vault intact IMPRESSION: Extensive cerebral and left cerebellar metastatic disease Mass effect with subfalcine herniation of ventricles to the left 6 mm Consider brain MRI follow-up pre and postcontrast
--- NOTE | 2025-03-16 02:30 | PC.NURSE ---
0208 Pt found laying on floor beside bed, alert and oriented to self and place. Code star called overhead. Pt denies of any pain. Pt states I hit my head a little bit . No injury noted to head, no bleeding. No swelling or deformity noted to extremities. Assisted back to bed with two staff members. Vital signs: BP 168/123, HR 104, RR 18, Temp 98, SpO2 94%. Bed alarm functional, side rails up x4 with seizure precautions, Avasure in place. Notified resident Dr. Howard and Charge Nurse Emily of fall. New order received for CT of the head. Fall precautions reinforced, bed alarm on, call light within reach. Denies any pain or dizziness. Plan of care ongoing.
[2025-03-16] MEDS: DEXAMETHASONE SOD PHOS INJ 4 MG/ML VIAL IVP ×3 (02:35→13:47)
[2025-03-16] MEDS: LORazepam 2 MG/ML VIAL IVP ×5 (02:47→11:18)
--- NOTE | 2025-03-16 02:57 | PC.NURSE ---
Pt taken to CT via hospital bed
--- NOTE | 2025-03-16 03:20 | PC.NURSE ---
Pt back from CT, pt bed to lowest position, bed alarm on, side rail up x4 with seizure precaution, call light within reach, 1:1 sitter at bedside, avasure in place. Plan of care ongoing.
--- NOTE | 2025-03-16 04:24 | PRELIM_ITS ---
CT scan of the head without intravenous contrast (axial sections with sagittal and coronal reformats); March 16, 2025 03:10 hours Clinical History: Fell and hit her head. Comparison: No prior study is available for comparison at the time of interpretation. Findings: There are extensive and multifocal areas of vasogenic edema within the cerebral hemispheres bilaterally worrisome for underlying metastases. There is subfalcine herniation to the left of 6 mm. There is generalized cerebral edema. Edema is also noted within the left cerebellar hemisphere suspicious for underlying metastasis. There is no intracranial hemorrhage. Ventricles are not enlarged. There are vascular calcifications along the carotid siphons bilaterally. Visualized paranasal sinuses and tympanomastoid cavities are clear. Bony calvarium is intact. Impression: Extensive vasogenic edema within the cerebral hemispheres worrisome for underlying parenchymal brain metastases. Subfalcine herniation to the left of 6 mm. Recommend MRI brain pre- and post-intravenous contrast for further evaluation, if clinically feasible. Discussion Details: Results verbally communicated to : Dr. Benton at 04:18 AM 03/16/2025 Report Electronically Signed By: Trae Lagunas 03/16/2025 4:23:19 AM [EST]
--- NOTE | 2025-03-16 06:05 | PC.NURSE ---
Attempt to call daughter Lorie to inform her of fall, no responds, message left via voicemail. Awaiting call back.
[2025-03-16 07:02] LABS: Phosphorous 3.1 mg/dL (2.4-5.1)
[2025-03-16 07:19] LABS: Basophils # (Auto) 0.0 Thou/mm3 (0.0-0.2); Basophils % (Auto) 0 % (0-2.5); Eosinophils # (Auto) 0.0 Thou/mm3 (0.0-0.5); Eosinophils % (Auto) 0 % (0-10); Hematocrit 42.6 % (36.0-46.0); Hemoglobin 14.4 g/dL (12.0-16.0); Immature Granulocytes Auto 0.08 Thou/mm3 (0.00-0.00); Lymphocytes # (Auto) 1.0 Thou/mm3 (1.0-4.8); Lymphocytes % (Auto) 6 % (10-50); Mean Corpuscular HGB Conc 33.8 g/dl (31.0-37.0); Mean Corpuscular Hemoglobin 31.8 pg (25.0-35.0); Mean Corpuscular Volume 94 fL (80-100); Monocytes # (Auto) 0.5 Thou/mm3 (0.0-0.8); Monocytes % (Auto) 3 % (0-12); Neutrophils # (Auto) 14.3 Thou/mm3 (1.8-7.7); Neutrophils % (Auto) 90 % (37-80); Nucleated Red Blood Cell # 0.00 Thou/mm3 (0.00-0.00); Nucleated Red Blood Cell % 0 /100 WBC (0); Platelet Count 170 Thou/mm3 (140-440); RDW Standard Deviation 47.0 fL (36.4-46.3); Red Blood Count 4.53 Miln/mm3 (4.00-5.20); White Blood Count 16.0 Thou/mm3 (3.6-11.0)
[2025-03-16 07:28] LABS: Alanine Aminotransferase 29 U/L (10-49); Albumin, Serum 4.7 gm/dL (3.5-5.0); Albumin/Globulin Ratio 2.1 (1.2-2.2); Alkaline Phosphatase 212 U/L (46-116); Anion Gap 11 (7-16); Aspartate Amino Transferase 21 U/L (0-34); BUN/Creatinine Ratio 23 Ratio (12-20); Bilirubin,Total 1.0 mg/dL (0.3-1.2); Blood Urea Nitrogen 14 mg/dL (9-23); Calcium 9.4 mg/dL (8.3-10.6); Calcium (Corrected) 9.4 mg/dL (8.5-10.1); Carbon Dioxide 27.6 mMol/L (20.0-31.0); Chloride 103 mMol/L (98-107); Creatinine (Component) 0.6 mg/dL (0.6-1.3); Estimated Creatinine Clearance 102.1 mL/min (>60); Globulin 2.2 gm/dL (2.3-3.5); Glucose 120 mg/dL (74-106); Osmolality,Calculated 284 (275-295); Potassium 4.3 mMol/L (3.4-5.1); Sodium 142 mMol/L (136-145); Total Protein 6.9 gm/dL (5.7-8.2); eGFR > 60 See Note
[2025-03-16] MEDS: PANTOPRAZOLE 40 MG TABLET PO (08:14)
[2025-03-16] MEDS: levETIRAcetam INJ 100 MG/ML VIAL 5ML 750 MG IVP (08:14)
[2025-03-16] MEDS: HEPARIN SOD INJ 5000 UNIT/ML VIAL SC (08:15)
--- NOTE | 2025-03-16 11:23 | PD.RESPRO ---
Documentation for date of: 03/16/25 Exam Vital Signs Temp Pulse Resp BP Pulse Ox O2 Del Method O2 Flow Rate 97.9 F 86 18 192/96 H 99 Room Air 2 03/16/25 11:09 03/16/25 11:09 03/16/25 11:09 03/16/25 11:09 03/16/25 11:09 03/16/25 11:09 03/14/25 09:00 Objective Labs 03/16/25 06:28 03/16/25 06:28 Labs: Laboratory Results - last 24 hr 03/16/25 06:28 WBC 16.0 H RBC 4.53 Hgb 14.4 Hct 42.6 MCV 94 MCH 31.8 MCHC 33.8 RDW Std Deviation 47.0 H Plt Count 170 Neut % (Auto) 90 H Lymph % (Auto) 6 L [place] % (Auto) 3 Eos % (Auto) 0 Baso % (Auto) 0 Neut # (Auto) 14.3 H Lymph # (Auto) 1.0 [place] # (Auto) 0.5 Eos # (Auto) 0.0 Baso # (Auto) 0.0 Immature Gran # (Auto) 0.08 H Absolute Nucleated RBC 0.00 Immature Gran % 1 H Nucleated RBC % 0 Sodium 142 Potassium 4.3 D Chloride 103 Carbon Dioxide 27.6 Anion Gap 11 BUN 14 Creatinine 0.6 Estim Creat Clear Calc 102.1 eGFR > 60 BUN/Creatinine Ratio 23 H Glucose 120 H Calculated Osmolality 284 Calcium 9.4 Corrected Calcium 9.4 Phosphorus 3.1 Total Bilirubin 1.0 AST 21 ALT 29 Alkaline Phosphatase 212 H Total Protein 6.9 Albumin 4.7 Globulin 2.2 L Albumin/Globulin Ratio 2.1 Quality Measures Quality Measures none Assessment & Plan Assessment Current Active Medications: Generic Name Dose Route Start Last Admin Trade Name Freq PRN Reason Stop Dose Admin Acetaminophen 650 mg 03/13/25 00:40 Acetaminophen 325 Mg Tablet PO 04/12/25 00:39 Q6H PRN Fever >100.3 Acetaminophen 650 mg 03/13/25 00:40 03/14/25 18:19 Acetaminophen 325 Mg Tablet PO 04/12/25 00:39 650 mg Q6H PRN Administration PAIN SCALE 1-3 (mild Amlodipine Besylate 5 mg 03/13/25 09:00 03/16/25 08:14 Amlodipine Besylate 5 Mg Tablet PO 04/12/25 08:59 5 mg QDAY HANNAH Administration Dexamethasone Sodium Phosphate 4 mg 03/13/25 14:15 03/16/25 08:15 Dexamethasone Sod Phos Inj 4 Mg/Ml Vial IVP 04/12/25 14:14 4 mg Q6H HANNAH Administration Protocol Heparin Sodium (Porcine) 5,000 unit 03/13/25 09:00 03/16/25 08:15 Heparin Sod Inj 5000 Unit/Ml Vial SC 03/27/25 08:59 5,000 unit BID HANNAH Administration Levetiracetam 750 mg 03/13/25 09:00 03/16/25 08:14 Levetiracetam Inj 100 Mg/Ml Vial 5ml IVP 04/12/25 08:59 750 mg Q12HR HANNAH Administration Lorazepam 1 mg 03/15/25 15:53 03/15/25 22:13 Lorazepam 0.5 Mg Tablet PO 03/20/25 15:52 1 mg Q4HR PRN Administration AGITATION Lorazepam 2 mg 03/16/25 11:30 03/16/25 11:18 Lorazepam 2 Mg/Ml Vial IVP 03/16/25 11:31 2 mg X1 ONE Administration Ondansetron HCl 4 mg 03/13/25 00:40 Ondansetron Inj 2 Mg/Ml Inj 2 Ml IVP 04/12/25 00:39 Q6H PRN NAUSEA OR VOMITING Protocol Pantoprazole Sodium 40 mg 03/15/25 10:00 03/16/25 08:14 Pantoprazole 40 Mg Tablet PO 04/14/25 09:59 40 mg QDAY HANNAH Administration
--- NOTE | 2025-03-16 11:57 | PD.ONCRADPRG ---
Documentation for date of: 03/16/25 Subjective Subjective Interval history: Patient had another CT this a.m. which showed extensive cerebral and left cerebellar metastatic disease with mass effect with subfalcine herniation of ventricles to the left 6 mm. This looks a bit worse than the prior CT performed. Clinically patient appears to be somewhat worse being more agitated despite being sedated with 2 mg Ativan prior to attempted get another radiation therapy. Exam Vital Signs Temp Pulse Resp BP Pulse Ox O2 Del Method O2 Flow Rate 97.9 F 86 18 192/96 H 99 Room Air 2 03/16/25 11:09 03/16/25 11:09 03/16/25 11:09 03/16/25 11:09 03/16/25 11:09 03/16/25 11:09 03/14/25 09:00 Objective Labs 03/16/25 06:28 03/16/25 06:28 Labs: Laboratory Results - last 24 hr 03/16/25 06:28 WBC 16.0 H RBC 4.53 Hgb 14.4 Hct 42.6 MCV 94 MCH 31.8 MCHC 33.8 RDW Std Deviation 47.0 H Plt Count 170 Neut % (Auto) 90 H Lymph % (Auto) 6 L [place] % (Auto) 3 Eos % (Auto) 0 Baso % (Auto) 0 Neut # (Auto) 14.3 H Lymph # (Auto) 1.0 [place] # (Auto) 0.5 Eos # (Auto) 0.0 Baso # (Auto) 0.0 Immature Gran # (Auto) 0.08 H Absolute Nucleated RBC 0.00 Immature Gran % 1 H Nucleated RBC % 0 Sodium 142 Potassium 4.3 D Chloride 103 Carbon Dioxide 27.6 Anion Gap 11 BUN 14 Creatinine 0.6 Estim Creat Clear Calc 102.1 eGFR > 60 BUN/Creatinine Ratio 23 H Glucose 120 H Calculated Osmolality 284 Calcium 9.4 Corrected Calcium 9.4 Phosphorus 3.1 Total Bilirubin 1.0 AST 21 ALT 29 Alkaline Phosphatase 212 H Total Protein 6.9 Albumin 4.7 Globulin 2.2 L Albumin/Globulin Ratio 2.1 Assessment & Plan A&P Narrative 1. Stage IV receptor positive HER2 positive ER positive left breast CA with liver mets bone mets since 2022 now significant brain mets. 2. Obviously guarded prognosis, and 2 attempts to treat her Sunday and today was unsuccessful as patient was too agitated to lie still for safe radiation. 3. Despite being on steroid therapy for several days, considerable edema remains on CT which is both causing severe symptoms and danger of herniation. 4. Unclear if neurosurgery will take patient to alleviate problem with surgical procedure, but spoke with Dr. Monroe about about possible transfer. 5. Spoke with daughter Ramonita, regarding hospice care also another option at this point. Time Spent With Patient Time: Total time spent is greater than 50% in coordination of care (as documented) at patient's floor/unit and/or counseling patient:
--- NOTE | 2025-03-16 12:07 | PC.PT ---
Patient wt dx of St. 4 breast ca with mets to liver and brain. Patient lives with daughter. As per chart and SW. Patient is mostly wc bound and family assisting in transfers. Patient was approached at around 10am, Brother and Mother at bedside. As per Mother, patient was not able to ambulate. Considering patient's dx, and patient's PLOF. Patient is not a candidate for skilled Physical therapy services at this time. Will cancel PT evaluation. Informed .
--- NOTE | 2025-03-16 12:40 | PC.SS ---
Addendum entered by Aditi Martinez 03/16/25 14:44: SS followed up with family and patient's brother, Bret Soto, who confirmed they wanted to go with [facility] [[email or web address] SS updated physician team. Facility wants to know if patient will remain a full code or DNR. Physician to speak with family. Possible d/c later tonight or tomorrow. Original Note: SS received call from [facility] regarding a referral from Dr. Sheikh for hospice. ZAKIAK already spoke to family who is agreeable. SS called daughter and patient's brother to confirm decision. Both are in agreement with [place] hospice at [facility]. No preference. Updated attending. Patient was not able to tolerate radiation treatment again today. SS will send off inquiry today on [facility].
--- NOTE | 2025-03-16 12:57 | PC.CC ---
1219: spoke to Alexandria w/ , informed her to cancel transfer request. 1246: spoke to Ramin from [facility], she requested to speak to sending MD. Called during Dr. Monroe, she informed at this time to cancel transfer as patient is now going on hospice. Informed Ramin to cancel 1239: initiated transfer request w/ Kin at . will have nurse review and call 1233: called ricky Ashley to return my call received transfer request order for neurosurgery for brain edema w/ falx cerbri herniation secondary to metastatic breast cancer to the brain. sent clinicals to [facility], , [place]
--- NOTE | 2025-03-16 14:51 | ESPR_ITS ---
Documentation for date of: 03/16/25 Subjective Subjective Interval history: Patient examined at bedside. Blood pressure elevated 192/96, WBC 16, glucose 120. Other electrolytes unremarkable. Daughter was at bedside who stated that mentation has not improved much since admission, endorses decreased appetite. Displaying agitation. She withdraws and moans to pain and sternal rub but does not open eyes. CT head from this morning continues to show extensive cerebral and left cerebellar metastatic disease. Mass effect with subfalcine herniation of ventricles to the left 6 mm new finding. Family has decided to persue hospice. Continue with keppra 750 BID, dexamethasone 4 every 6 hours with close monitoring for steroid psychosis. Exam Vital Signs Temp Pulse Resp BP Pulse Ox O2 Del Method O2 Flow Rate 97.9 F 86 18 192/96 H 99 Room Air 2 03/16/25 11:09 03/16/25 11:09 03/16/25 11:09 03/16/25 11:09 03/16/25 11:09 03/16/25 11:09 03/14/25 09:00 Narrative Exam General: moving around in bed/agitated, eyes closed, well-nourished Ears: no ear discharge, Hearing grossly intact. Nose: No nasal discharge. Mouth/Throat: Moist mucous membranes, no redness, no lesions. Neck: Neck supple, non-tender, no cervical lymphadenopathy. Lungs:no wheezing or crackles, No accessory muscle use. Cardio: Normal S1/S2, regular rhythm, no murmurs Abdomen: Soft, non-tender, no guarding or rebound. Extremities: Symmetrical, no significant deformities, no peripheral edema Skin: No rashes, no lesions, warm to touch. Neuro:Limited exam, not following commands, withdraws and moans from pain Psych: unable to asssess Objective Labs 03/16/25 06:28 03/16/25 06:28 Labs: Laboratory Results - last 24 hr 03/16/25 06:28 WBC 16.0 H RBC 4.53 Hgb 14.4 Hct 42.6 MCV 94 MCH 31.8 MCHC 33.8 RDW Std Deviation 47.0 H Plt Count 170 Neut % (Auto) 90 H Lymph % (Auto) 6 L [place] % (Auto) 3 Eos % (Auto) 0 Baso % (Auto) 0 Neut # (Auto) 14.3 H Lymph # (Auto) 1.0 [place] # (Auto) 0.5 Eos # (Auto) 0.0 Baso # (Auto) 0.0 Immature Gran # (Auto) 0.08 H Absolute Nucleated RBC 0.00 Immature Gran % 1 H Nucleated RBC % 0 Sodium 142 Potassium 4.3 D Chloride 103 Carbon Dioxide 27.6 Anion Gap 11 BUN 14 Creatinine 0.6 Estim Creat Clear Calc 102.1 eGFR > 60 BUN/Creatinine Ratio 23 H Glucose 120 H Calculated Osmolality 284 Calcium 9.4 Corrected Calcium 9.4 Phosphorus 3.1 Total Bilirubin 1.0 AST 21 ALT 29 Alkaline Phosphatase 212 H Total Protein 6.9 Albumin 4.7 Globulin 2.2 L Albumin/Globulin Ratio 2.1 Quality Measures Quality Measures none Assessment & Plan Assessment Current Active Medications: Generic Name Dose Route Start Last Admin Trade Name Freq PRN Reason Stop Dose Admin Acetaminophen 650 mg 03/13/25 00:40 Acetaminophen 325 Mg Tablet PO 04/12/25 00:39 Q6H PRN Fever >100.3 Acetaminophen 650 mg 03/13/25 00:40 03/14/25 18:19 Acetaminophen 325 Mg Tablet PO 04/12/25 00:39 650 mg Q6H PRN Administration PAIN SCALE 1-3 (mild Amlodipine Besylate 5 mg 03/13/25 09:00 03/16/25 08:14 Amlodipine Besylate 5 Mg Tablet PO 04/12/25 08:59 5 mg QDAY HANNAH Administration Dexamethasone Sodium Phosphate 4 mg 03/13/25 14:15 03/16/25 13:47 Dexamethasone Sod Phos Inj 4 Mg/Ml Vial IVP 04/12/25 14:14 4 mg Q6H HANNAH Administration Protocol Heparin Sodium (Porcine) 5,000 unit 03/13/25 09:00 03/16/25 08:15 Heparin Sod Inj 5000 Unit/Ml Vial SC 03/27/25 08:59 5,000 unit BID HANNAH Administration Levetiracetam 750 mg 03/13/25 09:00 03/16/25 08:14 Levetiracetam Inj 100 Mg/Ml Vial 5ml IVP 04/12/25 08:59 750 mg Q12HR HANNAH Administration Lorazepam 1 mg 03/15/25 15:53 03/15/25 22:13 Lorazepam 0.5 Mg Tablet PO 03/20/25 15:52 1 mg Q4HR PRN Administration AGITATION Ondansetron HCl 4 mg 03/13/25 00:40 Ondansetron Inj 2 Mg/Ml Inj 2 Ml IVP 04/12/25 00:39 Q6H PRN NAUSEA OR VOMITING Protocol Pantoprazole Sodium 40 mg 03/15/25 10:00 03/16/25 08:14 Pantoprazole 40 Mg Tablet PO 04/14/25 09:59 40 mg QDAY HANNAH Administration Plan Patient is a 54 F with PMH of stage 4 breast caner with liver and brain metastases and seizures, who presened to the ED on 03/12 with diffuse pain, headache, nausea, vomiting. She was admitted on 03/13 for encephalopathy developed in the ED. 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 Daughter found her unresponsive at home. Patient was recently diagnosed with breast cancer and on chemotherapy. Family stated that patient was improving however about 1 month ago she started experiencing headaches. Repeat exam showed metastatic lesions in liver and brain. Since then repeat imaging of hide has shown multiplied number of lesions in the brain. Family wishes to continue full treatment and management. Dr. Sheikh was consulted who is planning on starting radiation therapy. She was to be for session however on tolerated. Diagnosed with stage IV moderately differentiated, ER +, CA -, HER2/pennie 3+ IHC positive breast IDC, (03/29/2023) with biopsy-proven liver metastases (07/27/2023) Follows with Dr. Leavitt, on chemotherapy (pertuzumab, trastuzumab and docetaxel) [place], ibuprofen for pain management, Keppra 500 mg PO BID, Dexamethasone 4 mg at home. Recently saw neurosurgery at [facility]- no surgical intervention appropriate at this time CT head 02/24/25: large abnormal areas of edema in both frontal and parietal lobes, marked generalized cerebral edema. Additional multiple areas of edema in temporal lobe on right. 20 mm right thalamic mass impinges on 3rd ventricle. c/w cerebral metastases Brain MRI 03/12/25: Multiple areas of abnormal edema. Mild restricted diffusion in basal ganglia on DWI. Enhancing lesions found in b/l cerebrum and left cerebellum, displacement of 3rd ventricle to the left [address] head 03/12/25: More prominent cerebral edema about multiple cerebral and left cerebellar hemisphere metastatic lesions, no tonsilar herniation CT head repeated 03/16--continues to show extensive cerebral and left cerebellar metastatic disease. Mass effect with subfalcine herniation of ventricles to the left 6 mm new finding. -keppra 750 BID, dexamethasone 4 every 6 hours--family is considering hospice at this point - seizure protocol and precaution -Continue dexamethasone IV 4 mg every 6 hours - Continue IV Keppra 750 mg twice daily #HTN #GERD Primary care team to manage above conditions and ongoing care needs. The patient's management plan was discussed with my attending physician Dr. Dacosta. Aleah Lyn, PGY-2 Attending Provider Attestation/Addendum I personally have seen and examined the patient at the bedside and agreed with resident's findings, assessment and plan of care. Patient with cerebral and cerebellar mental status is an legally blind baseline status, remains seizure- free since admission on Keppra. Continue with the current management. Noted patient's family agreed for hospice care.
--- NOTE | 2025-03-16 16:24 | PC.SS ---
Patient's granddaughter, Ramonita; confirmed discharge plan to transition patient to SNF with hospice. LEATHER STAMPER present as resident discussed code status. Patient's code status has been transitioned to DNR/DNI. Bedside nurse updated.
--- NOTE | 2025-03-16 17:51 | ESDS_ITS ---
<Statement entered by Alva Monroe DO - 03/16/25 19:35> I, Alva Monroe DO, attest that I was physically present for the johnson portions of the service and evaluated the patient with the resident and I reviewed and discussed the case with the resident and agree with the resident's findings and plans of care as documented above <Statement entered by Zechariah Hernandez MD - 03/16/25 17:52> I have reviewed the note and agree with the resident's assessment & plan with exceptions as below. I have personally reviewed labs, imaging, home meds/prior records, examined the patient, formulated and discussed management plan with my attending Patient was seen and at bedside this morning. Overnight patient had a fall from her bed unwitnessed and had a head CT done. It was again noted metastatic disease and there was some mass effect with subfalcine herniation of the ventricles to the left 6 mm. Patient was initially admitted due to acute encephalopathy along with intractable pain and was found to have brain metastasis. Initially plan was to transfer patient to tertiary care center, but spoke with radiation oncology and given that the patient next morning had improved and was AO x 3 and able to follow directions it was decided to attempt radiation along with Decadron to decrease the swelling. Patient throughout the hospital course was on Decadron to improve the swelling and was placed on Keppra for seizures and there was as needed lorazepam for agitation. On the day of discharge patient was not able to tolerate radiation treatment due to issues with patient not being able to lay down. As patient throughout the day even though she was able x 3 was more agitated and unable to lay still and was unsafe Ativan was ordered. On the days of discharge had a discussion with patient's daughter Ramonita as well as daughters partner Kenn, and patient's mother Aleta. Throughout the discussion Dejuan geriatric social worker and patient's nurse Fifi were present at all times. It was explained to them that the patient's condition was secondary likely to the metastasis of the cancer to the brain along with the swelling and that they could also be a component of steroid-induced psychosis, but without the steroids the patient's edema would not improve as she was quickly deteriorate. Kenn, partner of the patient's daughter, had questions a nd had concerns that the medication was likely causing the patient's current symptoms and it was explained to him that there are multiple things and multiple components causing the patient's current clinical status and that this was likely secondary to the brain metastases along with the edema as well as possible steroid-induced psychosis and that the Ativan was less likely, but that it could also influence the patient's condition. They were understanding and they had decided at this time that they want the patient to be DNR/DNI and to be discharged to a [facility] facility with hospice. At this time patient was stable enough to be discharged to a skilled nurse facility on hospice. Zechariah Hernandez PGY2 Disclaimer: Even though this this note was dictated by speech recognition and even though it was carefully revised there may still be minor errors in cuff runner due to voice recognition software. Planned Discharge Date 03/16/25 DS: Providers Provider Date of admission: 03/13/25 00:40 Primary care physician: Physician Cuca Primary/Family Admitting Provider: Romina Arenas MD Attending Provider on Admission: Alva Monroe DO Consults: 03/13/25 02:10 Consult to Neurology / Tele-Neurology Routine Comment: Consulting Provider: Feliciano Dacosta 03/13/25 02:32 Consult to Oncology Stat Comment: Consulting Provider: Kael Sheikh 03/16/25 12:40 Referral Hospice Routine Comment: Attending Provider on DC: Alva Monroe DO Discharging Provider: Alva Monroe DO DS: Diagnosis Problem List Completed Was Problem List Reviewed/Reconciled?: Yes Hospital Course Hospital Course Hospital course: Hospital Course: Patient is a 54-year-old female with past medical history of stage IV breast cancer with brain and liver metastases who presented to the ED on 03/13/25 with diffuse pain headache nausea and vomiting followed by unresponsiveness; she was brought to the ED where she initially awoke and was ANO x 2. MRI brain showed multiple cerebral left cerebellar lesions consistent with metastatic disease without herniation; initially, plan was to do radiation through Dr. Sheikh with potential hospice afterwards. However patient was found to be unresponsive with decorticate posturing; repeat CT head showed increased edema secondary to brain mets without tonsillar herniation. Teleneuro recommended transfer; however Dr. Sheikh planned emergent radiation therapy, which she was taken to on 03/13/2025 at 12:00. However despite Ativan and Benadryl, patient was unable to stay still for radiation; thus procedure was not done, due to risk of complications. Neurology recommended continuing patient's Keppra and steroids. On 03/14/2025 patient continues to receive steroids, and plan was to pursue radiation therapy outpatient. On 03/15/2025 patient was still receiving steroids but seemed more confused and received Ativan; we are also consulted physical therapy. On 03/16/2025, patient had a overnight fall with head CT; metastatic disease now showed mass effect with subfalcine herniations on the left for 6 mm. Patient was unable once again to tolerate radiation due to patient not being able to lie down, and she became more agitated requiring Ativan. Goals of care discussion was conducted on that day with patient's daughter Ramonita, daughters partner Kenn, patient's mother Aleta, as well as geriatric social worker Dejuan and nurse Fifi. Patient condition was likely to brain metastases with potential steroid-induced psychosis; steroids were maintained however as the risks outweigh the benefits at this particular point patient's family then decided to make patient DNR/DNI and discharged to [facility] facility with hospice. Thus on 03/16/2025 patient was considered stable enough to discharge SNF on hospice care. Discharge Instructions: Please follow-up primary care physician within 2 or 3 days upon discharge You have been started on [place] 5/325 as needed for mild to moderate pain, [place] 10/325 mg as needed for severe pain you have also been started on Keppra 1000 mg twice daily You have been started on Zofran 4 mg tablets as needed for nausea and vomiting. Continue all medications as prescribed, unless instructed otherwise by palliative care physician. Please come back to the ED if symptoms persist or worsen Problem List: #Acute encephalopathy #?Seizures #Chronic cerebral edema #Intractable Nausea and vomiting, resolved #Stage IV left breast cancer with metastases to liver and brain #Witnessed fall #HTN #GERD Status at Discharge Overall status at discharge: patient is progressing back to baseline Time Spent with Patient Time attestation: Total time spent providing and/or coordinating discharge services: Time spent: Greater than 30 minutes Exam Vital Signs Temp Pulse Resp BP Pulse Ox O2 Del Method O2 Flow Rate 98.0 F 106 H 24 H 164/118 H 98 Room Air 2 03/16/25 16:00 03/16/25 16:00 03/16/25 16:00 03/16/25 16:00 03/16/25 16:00 03/16/25 16:00 03/14/25 09:00 Narrative Exam General: A/O x2, agitated, well-nourished, well-developed Eyes: R eye blindness, Anicteric, vision grossly intact. Ears: No ear pain, no ear discharge, Hearing grossly intact. Nose: No nasal discharge. Mouth/Throat: Moist mucous membranes, no redness, no lesions. Neck: Neck supple, non-tender, no cervical lymphadenopathy. Lungs: Clear GENO to auscultation and percussion, No accessory muscle use. Cardio: Normal S1/S2, regular rhythm, no murmurs, no JVD or carotid bruits. Abdomen: Soft, non-tender, no palpable masses, peristalsis present, no guarding or rebound. Extremities: Symmetrical, no significant deformities, no peripheral edema , non-tender, peripheral pulses presents. Skin: No rashes, no lesions, warm to touch. Neuro: No focal neurological deficits. Psych: Cooperative, agitated. Discharge Plan Plan Patient Disposition: Xfer Skilled Nsg Fac (SNF) Disposition Comment: With hospice Patient condition on transfer: Stable Care Plan Goals: Please follow-up primary care physician within 2 or 3 days upon discharge You have been started on [place] 5/325 as needed for mild to moderate pain, [place] 10/325 mg as needed for severe pain you have also been started on Keppra 1000 mg twice daily You have been started on Zofran 4 mg tablets as needed for nausea and vomiting. Continue all medications as prescribed, unless instructed otherwise by palliative care physician. Please come back to the ED if symptoms persist or worsen Prescriptions/Referrals Prescriptions/Med Rec: New hydrocodone-acetaminophen 5-325 mg tablet 1 tab PO Q8H MDD 3 PRN (Reason: pain) Qty: 20 0RF levetiracetam [Keppra] 1,000 mg tablet 1,000 mg PO BID Qty: 60 0RF hydrocodone-acetaminophen 10-325 mg tablet 1 tab PO Q4H MDD 6 PRN (Reason: pain) Qty: 30 0RF ondansetron 4 mg tablet,disintegrating 4 mg PO Q6H PRN (Reason: nausea and vomiting) Qty: 30 0RF Discontinued hydrocodone-acetaminophen 5-325 mg tablet 1 tab PO BID MDD 10 PRN (Reason: pain) Qty: 10 0RF ibuprofen 600 mg tablet 600 mg PO Q6H Qty: 30 0RF diphenhydramine HCl [Benadryl] 25 mg capsule 25 mg PO Q8H PRN (Reason: allergic symptoms) Qty: 30 0RF doxycycline hyclate 100 mg tablet 100 mg PO BID Qty: 14 0RF ibuprofen 800 mg tablet 800 mg PO TID PRN (Reason: pain) Qty: 30 0RF hydrocodone-acetaminophen 5-325 mg tablet 1 tab PO Q8H MDD 3 tab PRN (Reason: pain) Qty: 16 0RF naproxen 250 mg tablet 250 mg PO BID PRN (Reason: pain) Qty: 10 0RF Referrals: No Primary/Family,Physician [Primary Care Provider] Patient/Caregiver Discharge Instructions Discharge Activity: activity as tolerated Other Discharge Activity Instructions:: Please follow-up primary care physician within 2 or 3 days upon discharge You have been started on [place] 5/325 as needed for mild to moderate pain, [place] 10/325 mg as needed for severe pain you have also been started on Keppra 1000 mg twice daily You have been started on Zofran 4 mg tablets as needed for nausea and vomiting. Continue all medications as prescribed, unless instructed otherwise by palliative care physician. Please come back to the ED if symptoms persist or worsen Education Materials: Anatomy of the Brain, Brain Tumor Dc Print Language: Slovenian Stand Alone Forms: Bree Award Info., Patient Portal Info Letter Discharge Order Discharge Orders: Discharge (Routine); Ordered 03/16/25 Ordered By: Zechariah Hernandez Quality Discharge Quality Measures none
== END 2025-03-16 17:05 | disposition skilled nursing facility (03) | DRG 41 ==
LOC: SERX 21:25 → SERHOLD 03-13 01:10 → S2NX 03-13 02:13
PROVIDERS: Admitting Provider Student in an Organized Health Care Education/Training Program; Emergency Provider Family Medicine; Visit Provider Internal Medicine
DX: C79.31 Secondary malignant neoplasm of brain (principal); G40.909 Epilepsy, unspecified, not intractable, without status epilepticus; Z17.0 Estrogen receptor positive status [ER+]; Z17.22 Progesterone receptor negative status; C78.7 Secondary malignant neoplasm of liver and intrahepatic bile duct; C79.51 Secondary malignant neoplasm of bone; I10 Essential (primary) hypertension; H54.61 Unqualified visual loss, right eye, normal vision left eye; C50.912 Malignant neoplasm of unspecified site of left female breast; G93.40 Encephalopathy, unspecified; K21.9 Gastro-esophageal reflux disease without esophagitis; H26.9 Unspecified cataract; G93.89 Other specified disorders of brain; W06.XXXA Fall from bed, initial encounter; Y92.003 Bedroom of unspecified non-institutional (private) residence as the place of occurrence of the external cause; Z51.5 Encounter for palliative care; Z17.31 Human epidermal growth factor receptor 2 positive status; Z66 Do not resuscitate; Z79.899 Other long term (current) drug therapy
CPT/HCPCS: 36415; 36600; 70450; 70553; 71045; 80048; 80053; 81001; 81025; 82803; 83735; 84100; 85025; 85610; 93005; 94762; 96361; 96365; 96375; 96376; 99284; A9577; J0131; J1100; J1171; J1200; J1630; J1644; J1720; J1885; J1953; J2060; J2405; J3475; J3490; J7030; J7050; A9270

== ENCOUNTER 2025-03-16 11:37 | Outpatient (RCR) | payer MEDICAID, SELFPAY ==
--- NOTE | 2025-03-04 06:04 | CTCFLWUP_ITS ---
Patient: TRICIA DAVE : 1970 Page 7 of 7 FOLLOW UP NOTE DATE OF SERVICE: 03/03/2025 NAME: TRICIA DAVE ACCOUNT: [id number] : 1970 AGE: 54 INTERVAL HISTORY: Since last visit patient's condition had changed. Patient had strokelike symptoms on 02/24/2025 and was seen at [facility]. Patient had brain imaging under anesthesia which showed metastatic disease in the brain. Patient was advised to follow-up with radiation oncology for whole brain radiation and neurosurgery started on Keppra and Decadron. Patient is now here for follow-up with his daughter and son-in-law. Mrs. Dave has been getting treatment for her breast cancer and her last PET CT scan in [facility] was very encouraging that patient was going in remission but unfortunately has occurred in the brain with multiple metastatic lesions. ONCOLOGY HISTORY: DIAGNOSIS: Stage IV moderately differentiated, left breast ER positive, SC negative, HER2/pennie 3+ IHC positive invasive ductal carcinoma, s/p ultrasound-guided biopsy (03/29/2023) Status post biopsy-proven liver metastatic disease (07/27/2023) Currently on pertuzumab, trastuzumab and docetaxel started on 08/15/2023. PET/CT scan (01/29/2024) shows significant improvement 11/03/[address] scan showed a very small lesion in the left breast but otherwise PET CT scan was clear of cancer showing patient almost in complete remission there was only mildly hypermetabolism noted in the left breast 12/13/2024 ultrasound was negative for any DVT 12/30/2024 [facility] testing shows downtrend of CT DNA with CT DNA level of 0.71 02/24/2025 CT scan of the brain with contrast showed bilateral supratentorial vasogenic edema right thalamic and left anterior frontal parafalcine metastatic lesions 02/26/2025 brain MRI showed multiple metastasis with adjacent vasogenic edema with enhancing lesions in the frontal lobes bilaterally right temporal lobe left cerebellum right thalamus and adjacent vasogenic edema midline shift of 7.9 mm to the left largest measuring 2.8 cm subarachnoid space normal History of methamphetamine usage Right eye blindness. DATE OF DIAGNOSIS: 03/29/2023 STAGE/TNM: Stage 4 TREATMENT HISTORY: Care?Plan Start?Date Cycle Day Intent Pertuzumab,?Trastuzumab?and?Docetaxel 08/14/2023 1 21 Palliative?(other) herceptin?perjeta?adjuvant?for?11?cycles?after?tchp 09/04/2024 1 21 Palliative DOCETAXEL,?HERCEPTIN,?PERJETA,?CARBO 05/23/2023 1 21 Induction-Primary Herceptin?6mg/kg;?Perjeta?300?mg 08/25/2027 1 21 Maintenance Pertuzumab,?Trastuzumab?and?Docetaxel?continuation 01/30/2024 1 21 Palliative Herceptin?6mg/kg;?Perjeta?300?mg 08/28/2024 1 21 Curative?(primary) HISTORY OF PRESENT ILLNESS: Tricia Dave is a 54-year-old ENG speaking female with 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 Ms. Dave never had screening mammograms in the past. November 2022: The patient started noticing retraction of the left nipple. Few weeks later she felt a lump in the left breast. 02/12/2023: Left breast ultrasound 03/28/2023: Bilateral diagnostic digital mammogram? 03/29/2023: Ms. Dave had left breast 10:00 nodule, 11:00 nodule as well as left axillary lymph node ultrasound-guided biopsy. 05/15/2023: Echocardiogram showed an ejection fraction of 60 to 65%. 05/25/2023: PET/CT scan 05/31/2023: Bilateral breast MRI with and without contrast 07/17/2023: CT scan of the chest with IV contrast 07/27/2023: CT-guided biopsy of the left lobe liver lesion? 08/15/2023: Ms. Dave is started on pertuzumab, trastuzumab as well as docetaxel chemotherapy. 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 Arimidex - 1 mg 1 tab Daily 2. dexamethasone - 4 mg 1 tab twice daily 3. levetiracetam - 500 mg 1 tab Twice a Day 4. losartan - 50 mg 1 tab Daily 5. Protonix - 20 mg 1 tab 1 tab every 8 hrs as needed for nausea Medications Last Reconciled by Aiyana Anderson MD on 03/03/2025 ALLERGIES: No Known Drug Allergies REVIEW OF SYSTEMS: A complete 14-point review of systems was performed and is negative except as noted in interval history. PHYSICAL EXAMINATION: VITAL SIGNS: Temperature?98.9, B/P?156/92, Oxygen?Saturation?98% Weight?157?lbs (Change?since?02/03/25:?-0.6?lbs) PAIN: 3 - Between mild and moderate pain Patient have a left-sided hemiparesis to hemiplegia Patient's strokelike symptoms are likely from her metastasis of the brain and vasogenic edema LABORATORY DATA: I have personally reviewed and interpreted each of the patient?s relevant lab tests, abnormal findings are below: Date 02/02/25 02/24/25 ??WHITE?BLOOD?COUNT?(Thou/mm3) 9.2 9.9 ??RED?BLOOD?COUNT?(Miln/mm3) 4.09 4.09 ??HEMOGLOBIN?(gm/dl) 13.1 13.0 ??HEMATOCRIT?(%) 39.2 38.1 ??PLATELET?COUNT?(Thou/mm3) 264 243 ??NEUTROPHILS?%,?AUTO?(%) 69 68 ??LYMPH?%,?AUTO?(%) 20 23 ??NEUTROPHILS,?AUTO?(Thou/mm3) 6.4 6.7 ??GLUCOSE,RANDOM?(mg/dL) ? 107?H ??BLOOD?UREA?NITROGEN?(mg/dL) ? 16 ??CREATININE?(mg/dL) ? 0.60 ??SODIUM?(mmol/L) ? 139 ??POTASSIUM?(mmol/L) ? 3.9 ??CHLORIDE?(mmol/L) ? 106 ??CrCl?(CandG)?(ml/min) ? 104.51 ??AST/SGOT?(Unit/L) ? 16 ??ALT/SGPT?(Unit/L) ? 17 ??ALKALINE?PHOSPHATASE?(Unit/L) ? 179?H ??BILIRUBIN,?TOTAL?(mg/dL) ? 0.5 ??PROTEIN?TOTAL?(gm/dl) ? 7.1 ??ALBUMIN,?SERUM?(gm/dl) ? 4.4 ??GLOBULIN?(gm/dl) ? 2.7 ??ALBUMIN/GLOBULIN?RATIO ? 1.6 ??CALCIUM,?SERUM?(mg/dL) ? 9.4 ??CALCIUM?SERUM?(CORRECTED)?(mg/dL) ? 9.4 ??MAGNESIUM?(mg/dL) ? 2.1 ASSESSMENT/PLAN: Stage IV left breast moderately differentiated ER positive SC negative HER2 3+ IHC positive invasive ductal carcinoma s/p ultrasound-guided biopsy on 03/29/2023. Left breast biopsy sample as well as left axillary biopsy sample showed invasive ductal carcinoma. Liver lesion biopsy for metastatic disease patient received TCHP chemotherapy patient is on trastuzumab pertuzumab now Last PET CT scan showed almost complete remission in October 2024 Naterra also showed downtrend in this CT DNA Brain MRI is showing multiple lesions in the brain Plan Will start on complete brain radiation under Dr. Sheikh Continue Herceptin and Jonathanta Will repeat systemic imaging to see any progression in the viscera Continue Decadron while on radiation and awaiting another MRI of the brain Protonix to protect her gastric lining Advised to take Decadron with food Continue Keppra 500 twice daily to prevent seizures Overall prognosis poor ORDERS: Order # Description [id number] Comprehensive Metabolic Panel - 12 + CBC with Auto Diff [id number] + CA [id number] [id number] Follow Up 3 Week [id number] MRI + Brain + With Contrast [id number] CT Scan + Chest + Abdomen and Pelvis + With Contrast RETURN TO CLINIC: I reviewed the diagnosis, prognosis, and recommended treatment/procedure options with the patient (and/or their legal senior patient account representative), including the potential benefits, risks, side effects and alternative therapies. We also discussed the option of no treatment and the possibility of clinical trial participation, if applicable. All questions were addressed, and they demonstrated understanding. They provided informed consent to proceed with the proposed plan of care. BILLING AND COMPLIANCE: I reviewed external records from providers outside my specialty as summarized above. I spent a total of 50 minutes on this patient?s care on the day of their visit excluding time spent related to any billed procedures. This time includes time spent with the patient as well as time spent documenting in the medical record, reviewing patients records and tests, obtaining history, placing orders, communicating with other healthcare professionals, counseling the patient, family or caregiver, and/or care coordination for the diagnoses above. Electronically Signed by: {Object.Sanct_ID*PnP.NameFL@M}, {Object.Sanct_ID*PnP.Suffix@U} D: {Object.Sanct_Date} T: {Object.Sanct_Time} CC: Reynold?Riki? PCP: No Primary/family, Physician Referring: Kavon Leavitt This document was completed utilizing speech recognition software. Grammatical errors, random word insertions, pronoun errors, and incomplete sentences are an occasional consequence of this system due to software limitations, ambient noise, and hardware issues. Any formal questions or concerns about the content, text or information contained within the body of this dictation should be directly addressed to the provider for clarification.
--- NOTE | 2025-03-13 09:51 | CTCTXPLN_ITS ---
[facility] [address] [place], [place] [address] Physician Clinical Treatment Planning Note Date of Service: 03/13/2025 Name: TORI CHEATHAM : 1970 The patient has agreed to proceed with Radiation therapy. Tests and supporting medical records were interpreted to assist in defining the tumor location and extent of disease. Further imaging will be necessary to contour and delineate the volume to which the XRT will be provided. A. Treatment Intent: Palliative B. Modality: 6 MV C. Requested Technique: Clinical set up D. Treatment Site: Brain E. Critical structures to be contoured on plan: F. In order to accomplish this plan, I am ordering/Prescribing the followin. Simulations (s) will be performed to accomplish a reproducible treatment position, to determine optimal treatment portals/beam arrangements, to design beam modifying devices and verify treatment portals on patient prior to the commencement of Radiation Therapy. 2. Devices; for immobilization and beam shapin. CT Guidance for placement of XRT calix Scan area: 4. Portal images Frequency: 5. Invivo transit dose measurement once per week on all VMAT patients. 6. Special Physics Consult Requested for: 7. Other requests: Emergency and chemoradiation G. Dose Objectives: Palliative Electronically signed by: Kael Sheikh M.D. 03/13/2025 9:48 AM
--- NOTE | 2025-03-13 09:52 | CTCTXPLNST_ITS ---
Radiation Oncology Treatment Planning Sheet Name: TORI CHEATHAM MR#: [id number] : 1970 Dx: C50.912 Malignant neoplasm of unspecified site of left female breast Date of Service: 03/13/2025 Account #: ?? Pt Treatment Intent: curative palliative other: Stage: Procedure CPT # Ordered Spec. Procedure 22892 WB 1 Rahman Complex (set-up) 98186 1 Rahman Simple 23371 IMRT Plan 17135 MLC Devices VMAT 36969 Rahman 3 D 07779 TRTMT dev Complex 24202 Headrest/2F 3 TRTMT dev simple 37207 Basic [place] 12431 2 Special Dosimetry 48088 Spec Physics 22970 Port Films 79562 2 SRS Cranial/1FX 85730 SBR 5 FX or Less /ex: 5 = 5 fx 22810 IMRT Simple 73281 IMRT Complex 56415 IGRT 54972 Rad del iFit 6-10 04525 3000 10 Rad del iFit 11 13086 Cont Med Physics 56308 2 Treatment Planning 73581 1 Weekly Evaluation 76998 2 Rad del com 20 mev 38403 Special Port Plan 99195 TRTMT dev inter 78417 Isodose Complex 09191 Isodose simple 68053 Resp Motion Mgmt Simulation 50859 Placement of Fiducial Markers 39839 Electronically Signed By: Kael Sheikh MD, DABR 03/13/2025 9:50 AM
== END 2025-03-20 23:59 | disposition home or self-care (01) ==
LOC: SCTC 11:37
PROVIDERS: Referring Provider Internal Medicine Hematology & Oncology; Visit Provider Internal Medicine Hematology & Oncology
DX: C50.212 Malignant neoplasm of upper-inner quadrant of left female breast (principal); C79.31 Secondary malignant neoplasm of brain; C78.7 Secondary malignant neoplasm of liver and intrahepatic bile duct; Z17.0 Estrogen receptor positive status [ER+]; Z17.22 Progesterone receptor negative status; Z17.31 Human epidermal growth factor receptor 2 positive status
CPT/HCPCS: 77290; 77300; 77334; 99212; G0463